=== PATIENT | female | born 1935 | race Caucasian/White ===

== ENCOUNTER 2022-04-07 12:16 | Outpatient (CLI) | payer MEDICARE, OTHER | END 2022-04-07 12:17 | disposition short-term general hospital (02) | LOC: EMS 12:16 | DX: S00.31XA Abrasion of nose, initial encounter (principal); R04.0 Epistaxis; W01.10XA Fall on same level from slipping, tripping and stumbling with subsequent striking against unspecified object, initial encounter; Y93.01 Activity, walking, marching and hiking; Y92.008 Other place in unspecified non-institutional (private) residence as the place of occurrence of the external cause | CPT/HCPCS: A0425; A0429; A0888 ==

== ENCOUNTER 2022-04-12 18:32 | Emergency (ER) | payer MEDICARE, OTHER ==
[2022-04-12] MEDS ORDERED: OXYMETAZOLINE HCL 100 SPRAYS BOTTLE NAS STA (18:40)
--- NOTE | 2022-04-12 18:40 | ED Physician Documentation ---
History of Present Illness - Stated complaint Stated Complaint: NOSE INJ - History obtained from History obtained from: Patient, Family - Additonal information Additional information: 86-year-old woman on Eliquis had a fall hitting her face on the ground 5 days ago. She was seen at [facility] and per the daughter had a velásquez scan that was negative except for a nasal fracture. Subsequently has followed up with Dr. Wetzel, ENT who recommended conservative care but she developed a nosebleed this evening. Review of Systems Constitutional: reports: Reviewed and negative Ears: reports: Reviewed and negative Cardiac: reports: Reviewed and negative PD PAST MEDICAL HISTORY - Present Medications Home Medications: Ambulatory Orders Medication Instructions Recorded Confirmed Amoxicillin 500 mg PO TID #20 cap 04/12/22 HYDROcod/ACETAM 5/325 [[place] 5/325] 1 - 2 tab PO Q6H PRN #15 tablet 04/12/22 - Allergies Allergies/Adverse Reactions: Allergies Allergy/AdvReac Type Severity Reaction Status Date / Time No Known Drug Allergies Allergy Verified 04/12/22 18:46 PD ED PE NORMAL - Vitals Vital signs reviewed: Yes - General General: Alert and oriented X 3, No acute distress - HEENT HEENT: PERRL, EOMI, Other (Bleeding from the left greater than right nares, I am unable to see the source of bleeding on initial exam due to clot.) - Neck Neck: Supple, no meningeal sign, No bony TTP - Neuro Neuro: Alert and oriented X 3, Normal speech Eye Opening: Spontaneous Motor: Obeys Commands Verbal: Oriented GCS Score: 15 Results - Vitals Vitals: Vital Signs - 24 hr 04/12/22 18:42 Temperature 37.7 C Heart Rate 70 Respiratory 18 Rate Blood Pressure 167/99 H O2 Saturation 99 Oxygen O2 Source Room air Procedures - Epistaxis Site: Left, Other (After initial evaluation some oxymetazoline spray was sprayed at both eyes and then a nasal camp was placed. Then using nasal suction I was able to clear clots and identified what was likely the site of recent epistaxis on the left) Treatment: Silver Nitrate, Anterior rhinorocket Other: Observed - no bleeding PD MEDICAL DECISION MAKING - ED course ED course: 86-year-old woman on a DOAC for A. fib presents with a left-sided nosebleed after breaking her nose. She is already followed up with ENT but the epistaxis started after that visit. Multiple trials at vasoconstriction, pressure and silver nitrate cautery were unsuccessful and ended up being packed with a Rhino Rocket with cessation of bleeding. Departure - Departure Disposition: 01 Home, Self Care Clinical Impression: Epistaxis Nasal fracture Qualifiers: Encounter type: initial encounter Fracture type: closed Qualified Code(s): S02.2XXA - Fracture of nasal bones, initial encounter for closed fracture Condition: Good Record reviewed to determine appropriate education?: Yes Instructions: ED Nasal Packing Anterior Removable Prescriptions: Amoxicillin 500 mg PO TID #20 cap HYDROcod/ACETAM 5/325 [[place] 5/325] 1 - 2 tab PO Q6H PRN #15 tablet PRN Reason: Pain Comments: You are seen tonight for left-sided nosebleed related to a known facial fracture. We were unable to stop the bleeding with cautery and vasoconstrictors and subsequently placed a Rhino Rocket. This needs to stay in for 3 to 5 days. Ideally you can call Dr. Wetzel's office tomorrow and make an appointment for early next week for removal, if that cannot be set up, return here Saturday for reevaluation and packing removal. I sent a prescription for antibiotics and painkillers to [facility] in [place]. I am prescribing a short course of narcotic pain medication for you. These are potentially dangerous and addictive medications that should be used carefully. These medications may constipate you. Take an [id number] stool softener (docusate) twice daily with plenty of water while taking these medications. If you go 24 hours without a bowel movement, take [id number] miralax, per package instructions. Do not drink or drive while taking these medications. If you received narcotic or sedating medications while in the emergency department, do not drive for 24 hours. Store this medication in a safe, secure place and out of reach of children. It is a violation of federal law to give or sell this medication to another person or to use in a manner other than prescribed. The ED will not refill narcotic prescriptions, including prescriptions lost or stolen. To dispose of unwanted medications: 1. [facility] [address] in [place] has a medication drop box. They accept prescription medications (in pill form) Saturday through Saturday 9:00 a.m. to 5:00 p.m. 2. [facility] [employer] accepts prescription medications (in pill form only) for disposal year round. Call for more information. 3. Contact the [facility] for the next [facility] sponsored prescription drug collection event. , [phone], or [phone]; Note that many narcotic pain relievers also contain Tylenol/acetaminophen. Please ensure that your total dose of acetaminophen from all sources does not exceed 3 g (3000 mg) per day.
--- OUTSIDE RECORDS SUMMARY | 2022-04-12 18:41 | EXTERNAL MEDICAL SUMMARY RPT | Continuity of Care Document ---
:1935 Author Organization [facility] Address [address] [place] [address] Phone Allergies and Intolerances date description facility type (no date) No Known Drug Allergies [facility] (unkn own) Encounters No information. Functional Status No information. Immunizations No information. Medications No information. Problems No information. Procedures date description facility +0000 Diagnosis [facility] +0000 Finding [facility] +0000 General Physician [facility] Results/Labs test date author facility value unit interpret ation Result panel 1 (unknown) (no (unknown) (unknown) (no value) (units (unk nown) date) unknown) (unknown) (no (unknown) (unknown) (no value) (units (unk nown) date) unknown) (unknown) (no (unknown) (unknown) [place], [place] (units ( unknown) date) [id number] unknown) (unknown) (no (unknown) (unknown) Draft (units (unkno wn) date) unknown) (unknown) (no (unknown) (unknown) Family Practice (units (unknown) date) Office Visit unknown) (unknown) (no (unknown) (unknown) [facility] (units ([facility] date[facility] unknown) (unknown) (no (unknown) (unknown) (no value) (units (unk nown) date) unknown) (unknown) (no (unknown) (unknown) 02/08/22 (units (unkno wn) date) unknown) (unknown) (no (unknown) (unknown) [id number] (units (unkno wn) date) unknown) (unknown) (no (unknown) (unknown) Accompanied by: (units (unknown) date) Self / Same As unknown) Patient (unknown) (no (unknown) (unknown) Age/Sex: 86 / F (units (unknown) date) Date of unknown) Service: (unknown) (no (unknown) (unknown) Allergies (units (unkn own) date) unknown) (unknown) (no (unknown) (unknown) Anemia (units (unkno wn) date) unknown) (unknown) (no (unknown) (unknown) Attending Dr: (units ( unknown) date) Natan Waldron unknown) D.O. (unknown) (no (unknown) (unknown) Brother Age: 85 (units (unknown) date) Heart disease unknown) (unknown) (no (unknown) (unknown) Cataracts, (units (unk nown) date) bilateral unknown) (Unknown) (unknown) (no (unknown) (unknown) : 1935 (units (unknown) date) Acct:[id number] unknown) (unknown) (no (unknown) (unknown) Dept at (units (unkno wn) date) . unknown) (unknown) (no (unknown) (unknown) Documented By: (units (unknown) date) Natan Waldron unknown) D.O. 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 (unknown) (no (unknown) (unknown) GERD (units (unkno wn) date) (gastroesophageal unknown) reflux disease) (Unknown) (unknown) (no (unknown) (unknown) Hx of cataract (units (unknown) date) surgery () unknown) (unknown) (no (unknown) (unknown) Hyperlipemia (units (u nknown) date) (Unknown) unknown) (unknown) (no (unknown) (unknown) Hypertension (units (u nknown) date) (Unknown) unknown) (unknown) (no (unknown) (unknown) Intake (units (unkno wn) date) unknown) (unknown) (no (unknown) (unknown) Intake Note: (units (u nknown) date) unknown) (unknown) (no (unknown) (unknown) Intake performed (units (unknown) date) by: unknown) Sol Morgan (unknown) (no (unknown) (unknown) Intake- Clincial (units (unknown) date) Staff unknown) (unknown) (no (unknown) (unknown) Knee pain (units (unkn own) date) unknown) (unknown) (no (unknown) (unknown) Last Menstural (units (unknown) date) Cycle + Details unknown) (unknown) (no (unknown) (unknown) Left knee pain (units (unknown) date) unknown) (unknown) (no (unknown) (unknown) Loc: [facility] (units (unkno wn) date) unknown) (unknown) (no (unknown) (unknown) Low back pain (units ( unknown) date) unknown) (unknown) (no (unknown) (unknown) Medical History (units (unknown) date) (Updated 11/30/21 unknown) @ 15:00 by Natan Waldron DO) (unknown) (no (unknown) (unknown) [facility] (units (unkno wn) date) regurgitation unknown) (Unknown) (unknown) (no (unknown) (unknown) Mother (units (unkno wn) date) No unknown) problems noted. (unknown) (no (unknown) (unknown) No Known Drug (units ( unknown) date) Allergies Allergy unknown) (Verified 11/30/21 11:14) (unknown) (no (unknown) (unknown) Osteoarthritis (units (unknown) date) of right knee unknown) (unknown) (no (unknown) (unknown) Other Menstrual (units (unknown) date) Period: unknown) Postmenopausal (unknown) (no (unknown) (unknown) PFSH (units (unkno wn) date) unknown) (unknown) (no (unknown) (unknown) Patient: (units (unkno wn) date) Dana Pillai M unknown) MR#: [id number] (unknown) (no (unknown) (unknown) Pt here today (units ( unknown) date) for Knee unknown) injection for pain (unknown) (no (unknown) (unknown) Reason For Visit (units (unknown) date) unknown) (unknown) (no (unknown) (unknown) Signed By: (units (unk nown) date) unknown) (unknown) (no (unknown) (unknown) Smoking Status: (units (unknown) date) Never smoker unknown) (unknown) (no (unknown) (unknown) Status post (units (un known) date) right breast unknown) lumpectomy (-1966) (unknown) (no (unknown) (unknown) Superficial (units (un known) date) laceration unknown) (unknown) (no (unknown) (unknown) Surgical History (units (unknown) date) (Reviewed unknown) 11/30/21 @ 14:57 by Natan Waldron DO) (unknown) (no (unknown) (unknown) This note may (units ( unknown) date) have been all or unknown) partially generated using voice recognition (unknown) (no (unknown) (unknown) Tobacco + (units (unkn own) date) Substance Use unknown) (unknown) (no (unknown) (unknown) Tobacco Status (units (unknown) date) unknown) (unknown) (no (unknown) (unknown) Urinary (units (unkno wn) date) incontinence unknown) (Unknown) (unknown) (no (unknown) (unknown) Visit Reasons: (units (unknown) date) wants injection unknown) for knee pain (unknown) (no (unknown) (unknown) Well adult exam (units (unknown) date) unknown) (unknown) (no (unknown) (unknown) alcohol intake: (units (unknown) date) current unknown) (unknown) (no (unknown) (unknown) have occurred. (units (unknown) date) If there are any unknown) questions, please contact the Medical Records (unknown) (no (unknown) (unknown) may occur. (units (unk nown) date) Occasional unknown) wrong-word or 'sound-alike' substitutions may have (unknown) (no (unknown) (unknown) occurred due to (units (unknown) date) the inherent unknown) limitations of voice recognition software. Please (unknown) (no (unknown) (unknown) read the note (units ( unknown) date) carefully and unknown) recognize, using context, where these substitutions (unknown) (no (unknown) (unknown) software. (units (unkn own) date) Although every unknown) effort is made to edit content, solar engineer errors (unknown) (no (unknown) (unknown) substance use (units ( unknown) date) type: does not unknown) use Result panel 2 (unknown) (no (unknown) (unknown) (no value) (units (unk nown) date) unknown) (unknown) (no (unknown) (unknown) (no value) (units (unk nown) date) unknown) (unknown) (no (unknown) (unknown) (no value) (units (unk nown) date) unknown) (unknown) (no (unknown) (unknown) 02/08/22 (units (unkno wn) date) unknown) (unknown) (no (unknown) (unknown) 11:34 (units (unkno wn) date) unknown) (unknown) (no (unknown) (unknown) [place], [place] (units ( unknown) date) [id number] unknown) (unknown) (no (unknown) (unknown) Draft (units (unkno wn) date) unknown) (unknown) (no (unknown) (unknown) Family Practice (units (unknown) date) Office Visit unknown) (unknown) (no (unknown) (unknown) [facility] ([facility] date[facility]) (unknown) (no (unknown) (unknown) (no value) (units (unk nown) date) unknown) (unknown) (no (unknown) (unknown) 02/08/22 (units (unkno wn) date) unknown) (unknown) (no (unknown) (unknown) [id number] (units (unkno wn) date) unknown) (unknown) (no (unknown) (unknown) Accompanied by: (units (unknown) date) Self / Same As unknown) Patient (unknown) (no (unknown) (unknown) Age/Sex: 86 / F (units (unknown) date) Date of unknown) Service: (unknown) (no (unknown) (unknown) Allergies (units (unkn own) date) unknown) (unknown) (no (unknown) (unknown) Anemia (units (unkno wn) date) unknown) (unknown) (no (unknown) (unknown) Attending Dr: (units ( unknown) date) Natan Waldron unknown) D.O. (unknown) (no (unknown) (unknown) BMI 25.7 (units (un known) date) unknown) (unknown) (no (unknown) (unknown) BP 160/88 H (units (unknown) date) unknown) (unknown) (no (unknown) (unknown) Blood Pressure (units (unknown) date) Location Lt unknown) brachial (unknown) (no (unknown) (unknown) Brother Age: 85 (units (unknown) date) Heart disease unknown) (unknown) (no (unknown) (unknown) Cataracts, (units (unk nown) date) bilateral unknown) (Unknown) (unknown) (no (unknown) (unknown) : 1935 (units (unknown) date) Acct:[id number] unknown) (unknown) (no (unknown) (unknown) Dept at (units (unkno wn) date) . unknown) (unknown) (no (unknown) (unknown) Documented By: (units (unknown) date) Natan Waldron unknown) D.O. 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 (unknown) (no (unknown) (unknown) GERD (units (unkno wn) date) (gastroesophageal unknown) reflux disease) (Unknown) (unknown) (no (unknown) (unknown) Height 5 ft (units (unknown) date) 1.5 in unknown) (unknown) (no (unknown) (unknown) Hx of cataract (units (unknown) date) surgery (-2014) unknown) (unknown) (no (unknown) (unknown) Hyperlipemia (units (u nknown) date) (Unknown) unknown) (unknown) (no (unknown) (unknown) Hypertension (units (u nknown) date) (Unknown) unknown) (unknown) (no (unknown) (unknown) Intake (units (unkno wn) date) unknown) (unknown) (no (unknown) (unknown) Intake Note: (units (u nknown) date) unknown) (unknown) (no (unknown) (unknown) Intake performed (units (unknown) date) by: unknown) Sol Morgan (unknown) (no (unknown) (unknown) Intake- Clincial (units (unknown) date) Staff unknown) (unknown) (no (unknown) (unknown) Knee pain (units (unkn own) date) unknown) (unknown) (no (unknown) (unknown) Last Menstural (units (unknown) date) Cycle + Details unknown) (unknown) (no (unknown) (unknown) Left knee pain (units (unknown) date) unknown) (unknown) (no (unknown) (unknown) Loc: [facility] (units (unkno wn) date) unknown) (unknown) (no (unknown) (unknown) Low back pain (units ( unknown) date) unknown) (unknown) (no (unknown) (unknown) Medical History (units (unknown) date) (Updated 11/30/21 unknown) @ 15:00 by Natan Waldron DO) (unknown) (no (unknown) (unknown) [facility] (units (unkno wn) date) regurgitation unknown) (Unknown) (unknown) (no (unknown) (unknown) Mother (units (unkno wn) date) No unknown) problems noted. (unknown) (no (unknown) (unknown) No Known Drug (units ( unknown) date) Allergies Allergy unknown) (Verified 11/30/21 11:14) (unknown) (no (unknown) (unknown) Osteoarthritis (units (unknown) date) of right knee unknown) (unknown) (no (unknown) (unknown) Other Menstrual (units (unknown) date) Period: unknown) Postmenopausal (unknown) (no (unknown) (unknown) Oxygen Delivery (units (unknown) date) Method room unknown) air (unknown) (no (unknown) (unknown) PFSH (units (unkno wn) date) unknown) (unknown) (no (unknown) (unknown) Patient: (units (unkno wn) date) Dana Pillai M unknown) MR#: [id number] (unknown) (no (unknown) (unknown) Position (units (unkno wn) date) Sitting unknown) (unknown) (no (unknown) (unknown) Pt here today (units ( unknown) date) for Left Knee unknown) injection for pain. (unknown) (no (unknown) (unknown) Pt states the (units ( unknown) date) last injection unknown) gave improvement for about 2 weeks. (unknown) (no (unknown) (unknown) Pulse 61 (units (un known) date) unknown) (unknown) (no (unknown) (unknown) Pulse Oximetry (units (unknown) date) (%) 94 unknown) (unknown) (no (unknown) (unknown) Pulse Source (units (u nknown) date) Monitor unknown) (unknown) (no (unknown) (unknown) Reason For Visit (units (unknown) date) unknown) (unknown) (no (unknown) (unknown) Signed By: (units (unk nown) date) unknown) (unknown) (no (unknown) (unknown) Smoking Status: (units (unknown) date) Never smoker unknown) (unknown) (no (unknown) (unknown) Status post (units (un known) date) right breast unknown) lumpectomy () (unknown) (no (unknown) (unknown) Superficial (units (un known) date) laceration unknown) (unknown) (no (unknown) (unknown) Surgical History (units (unknown) date) (Reviewed unknown) 11/30/21 @ 14:57 by Natan Waldron DO) (unknown) (no (unknown) (unknown) This note may (units ( unknown) date) have been all or unknown) partially generated using voice recognition (unknown) (no (unknown) (unknown) Tobacco + (units (unkn own) date) Substance Use unknown) (unknown) (no (unknown) (unknown) Tobacco Status (units (unknown) date) unknown) (unknown) (no (unknown) (unknown) Urinary (units (unkno wn) date) incontinence unknown) (Unknown) (unknown) (no (unknown) (unknown) Visit Reasons: (units (unknown) date) wants injection unknown) for knee pain (unknown) (no (unknown) (unknown) Vitals (units (unkno wn) date) unknown) (unknown) (no (unknown) (unknown) Weight 138 lb (units (unknown) date) 2 oz unknown) (unknown) (no (unknown) (unknown) Well adult exam (units (unknown) date) unknown) (unknown) (no (unknown) (unknown) alcohol intake: (units (unknown) date) current unknown) (unknown) (no (unknown) (unknown) have occurred. (units (unknown) date) If there are any unknown) questions, please contact the Medical Records (unknown) (no (unknown) (unknown) may occur. (units (unk nown) date) Occasional unknown) wrong-word or 'sound-alike' substitutions may have (unknown) (no (unknown) (unknown) occurred due to (units (unknown) date) the inherent unknown) limitations of voice recognition software. Please (unknown) (no (unknown) (unknown) read the note (units ( unknown) date) carefully and unknown) recognize, using context, where these substitutions (unknown) (no (unknown) (unknown) software. (units (unkn own) date) Although every unknown) effort is made to edit content, solar engineer errors (unknown) (no (unknown) (unknown) substance use (units ( unknown) date) type: does not unknown) use Result panel 3 (unknown) (no (unknown) (unknown) (no value) (units (unk nown) date) unknown) (unknown) (no (unknown) (unknown) (no value) (units (unk nown) date) unknown) (unknown) (no (unknown) (unknown) (no value) (units (unk nown) date) unknown) (unknown) (no (unknown) (unknown) 02/08/22 (units (unkno wn) date) unknown) (unknown) (no (unknown) (unknown) 11:34 (units (unkno wn) date) unknown) (unknown) (no (unknown) (unknown) [place] (units ( unknown) date) [id number] unknown) (unknown) (no (unknown) (unknown) Draft (units (unkno wn) date) unknown) (unknown) (no (unknown) (unknown) Family Practice (units (unknown) date) Office Visit unknown) (unknown) (no (unknown) (unknown) [facility]units (unknown[facility] date[facility] unknown) (unknown) (no (unknown) (unknown) (no value) (units (unk nown) date) unknown) (unknown) (no (unknown) (unknown) 02/08/22 (units (unkno wn) date) unknown) (unknown) (no (unknown) (unknown) [id number] (units (unkno wn) date) unknown) (unknown) (no (unknown) (unknown) Accompanied by: (units (unknown) date) Self / Same As unknown) Patient (unknown) (no (unknown) (unknown) Age/Sex: 86 / F (units (unknown) date) Date of unknown) Service: (unknown) (no (unknown) (unknown) Allergies (units (unkn own) date) unknown) (unknown) (no (unknown) (unknown) Anemia (units (unkno wn) date) unknown) (unknown) (no (unknown) (unknown) Attending Dr: (units ( unknown) date) Natan Waldron unknown) D.O. (unknown) (no (unknown) (unknown) BMI 25.7 (units (un known) date) unknown) (unknown) (no (unknown) (unknown) BP 160/88 H (units (unknown) date) unknown) (unknown) (no (unknown) (unknown) Blood Pressure (units (unknown) date) Location Lt unknown) brachial (unknown) (no (unknown) (unknown) Brother Age: 85 (units (unknown) date) Heart disease unknown) (unknown) (no (unknown) (unknown) Cataracts, (units (unk nown) date) bilateral unknown) (Unknown) (unknown) (no (unknown) (unknown) : 1935 (units (unknown) date) Acct:[id number] unknown) (unknown) (no (unknown) (unknown) Dept at (units (unkno wn) date) . unknown) (unknown) (no (unknown) (unknown) Documented By: (units (unknown) date) Natan Waldron unknown) D.O. 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 (unknown) (no (unknown) (unknown) GERD (units (unkno wn) date) (gastroesophageal unknown) reflux disease) (Unknown) (unknown) (no (unknown) (unknown) Height 5 ft (units (unknown) date) 1.5 in unknown) (unknown) (no (unknown) (unknown) Hx of cataract (units (unknown) date) surgery (-2015) unknown) (unknown) (no (unknown) (unknown) Hyperlipemia (units (u nknown) date) (Unknown) unknown) (unknown) (no (unknown) (unknown) Hypertension (units (u nknown) date) (Unknown) unknown) (unknown) (no (unknown) (unknown) Intake (units (unkno wn) date) unknown) (unknown) (no (unknown) (unknown) Intake Note: (units (u nknown) date) unknown) (unknown) (no (unknown) (unknown) Intake performed (units (unknown) date) by: unknown) Sol Morgan (unknown) (no (unknown) (unknown) Intake- Clincial (units (unknown) date) Staff unknown) (unknown) (no (unknown) (unknown) Knee pain (units (unkn own) date) unknown) (unknown) (no (unknown) (unknown) Last Menstural (units (unknown) date) Cycle + Details unknown) (unknown) (no (unknown) (unknown) Left knee pain (units (unknown) date) unknown) (unknown) (no (unknown) (unknown) Loc: [facility] (units (unkno wn) date) unknown) (unknown) (no (unknown) (unknown) Low back pain (units ( unknown) date) unknown) (unknown) (no (unknown) (unknown) Medical History (units (unknown) date) (Updated 11/30/21 unknown) @ 15:00 by Natan Waldron DO) (unknown) (no (unknown) (unknown) [facility] (units (unkno wn) date) regurgitation unknown) (Unknown) (unknown) (no (unknown) (unknown) Mother (units (unkno wn) date) No unknown) problems noted. (unknown) (no (unknown) (unknown) No Known Drug (units ( unknown) date) Allergies Allergy unknown) (Verified 11/30/21 11:14) (unknown) (no (unknown) (unknown) Osteoarthritis (units (unknown) date) of right knee unknown) (unknown) (no (unknown) (unknown) Other Menstrual (units (unknown) date) Period: unknown) Postmenopausal (unknown) (no (unknown) (unknown) Oxygen Delivery (units (unknown) date) Method room unknown) air (unknown) (no (unknown) (unknown) PFSH (units (unkno wn) date) unknown) (unknown) (no (unknown) (unknown) Patient: (units (unkno wn) date) Dana Pillai unknown) MR#: [id number] (unknown) (no (unknown) (unknown) Position (units (unkno wn) date) Sitting unknown) (unknown) (no (unknown) (unknown) Pt here today (units ( unknown) date) for Left Knee unknown) injection for pain. (unknown) (no (unknown) (unknown) Pt states she (units ( unknown) date) has constant unknown) pain, severity of pain depends on what she is doing. (unknown) (no (unknown) (unknown) Pt states the (units ( unknown) date) last injection unknown) gave improvement for about 2 weeks. (unknown) (no (unknown) (unknown) Pulse 61 (units (un known) date) unknown) (unknown) (no (unknown) (unknown) Pulse Oximetry (units (unknown) date) (%) 94 unknown) (unknown) (no (unknown) (unknown) Pulse Source (units (u nknown) date) Monitor unknown) (unknown) (no (unknown) (unknown) Reason For Visit (units (unknown) date) unknown) (unknown) (no (unknown) (unknown) Signed By: (units (unk nown) date) unknown) (unknown) (no (unknown) (unknown) Smoking Status: (units (unknown) date) Never smoker unknown) (unknown) (no (unknown) (unknown) Status post (units (un known) date) right breast unknown) lumpectomy (-1966) (unknown) (no (unknown) (unknown) Superficial (units (un known) date) laceration unknown) (unknown) (no (unknown) (unknown) Surgical History (units (unknown) date) (Reviewed unknown) 11/30/21 @ 14:57 by Natan Waldron DO) (unknown) (no (unknown) (unknown) This note may (units ( unknown) date) have been all or unknown) partially generated using voice recognition (unknown) (no (unknown) (unknown) Tobacco + (units (unkn own) date) Substance Use unknown) (unknown) (no (unknown) (unknown) Tobacco Status (units (unknown) date) unknown) (unknown) (no (unknown) (unknown) Urinary (units (unkno wn) date) incontinence unknown) (Unknown) (unknown) (no (unknown) (unknown) Visit Reasons: (units (unknown) date) wants injection unknown) for knee pain (unknown) (no (unknown) (unknown) Vitals (units (unkno wn) date) unknown) (unknown) (no (unknown) (unknown) Weight 138 lb (units (unknown) date) 2 oz unknown) (unknown) (no (unknown) (unknown) Well adult exam (units (unknown) date) unknown) (unknown) (no (unknown) (unknown) alcohol intake: (units (unknown) date) current unknown) (unknown) (no (unknown) (unknown) have occurred. (units (unknown) date) If there are any unknown) questions, please contact the Medical Records (unknown) (no (unknown) (unknown) may occur. (units (unk nown) date) Occasional unknown) wrong-word or 'sound-alike' substitutions may have (unknown) (no (unknown) (unknown) occurred due to (units (unknown) date) the inherent unknown) limitations of voice recognition software. Please (unknown) (no (unknown) (unknown) read the note (units ( unknown) date) carefully and unknown) recognize, using context, where these substitutions (unknown) (no (unknown) (unknown) software. (units (unkn own) date) Although every unknown) effort is made to edit content, solar engineer errors (unknown) (no (unknown) (unknown) substance use (units ( unknown) date) type: does not unknown) use Result panel 4 (unknown) (no (unknown) (unknown) (no value) (units (unk nown) date) unknown) (unknown) (no (unknown) (unknown) Assessment and (units (unknown) date) Plan: unknown) (unknown) (no (unknown) (unknown) Qualifiers: (units (un known) date) unknown) (unknown) (no (unknown) (unknown) Status: Acute (units ( unknown) date) unknown) (unknown) (no (unknown) (unknown) (no value) (units (unk nown) date) unknown) (unknown) (no (unknown) (unknown) (no value) (units (unk nown) date) unknown) (unknown) (no (unknown) (unknown) 02/08/22 (units (unkno wn) date) unknown) (unknown) (no (unknown) (unknown) 02/08/22 1214 (units ( unknown) date) unknown) (unknown) (no (unknown) (unknown) 11:34 (units (unkno wn) date) unknown) (unknown) (no (unknown) (unknown) [place] (units ( unknown) date) [id number] unknown) (unknown) (no (unknown) (unknown) Chronicity: (units (un known) date) chronic unknown) Qualified Code(s): M25.562 - Pain in left knee; (unknown) (no (unknown) (unknown) Family Practice (units (unknown) date) Office Visit unknown) (unknown) (no (unknown) (unknown) [facility]units ([facility] date[facility] unknown) (unknown) (no (unknown) (unknown) Signed (units (unkno wn) date) unknown) (unknown) (no (unknown) (unknown) (no value) (units (unk nown) date) unknown) (unknown) (no (unknown) (unknown) (1) Left knee (units ( unknown) date) pain: unknown) (unknown) (no (unknown) (unknown) 02/08/22 (units (unkno wn) date) unknown) (unknown) (no (unknown) (unknown) [id number] (units (unkno wn) date) unknown) (unknown) (no (unknown) (unknown) 86-year-old (units (un known) date) female with unknown) longstanding history of advanced osteoarthrosis left (unknown) (no (unknown) (unknown) Accompanied by: (units (unknown) date) Self / Same As unknown) Patient (unknown) (no (unknown) (unknown) Age/Sex: 86 / F (units (unknown) date) Date of unknown) Service: (unknown) (no (unknown) (unknown) Allergies (units (unkn own) date) unknown) (unknown) (no (unknown) (unknown) Anemia (units (unkno wn) date) unknown) (unknown) (no (unknown) (unknown) Assessment + (units (u nknown) date) Plan unknown) (unknown) (no (unknown) (unknown) Attending Dr: (units ( unknown) date) Natan Waldron unknown) D.O. (unknown) (no (unknown) (unknown) BMI 25.7 (units (un known) date) unknown) (unknown) (no (unknown) (unknown) BP 160/88 H (units (unknown) date) unknown) (unknown) (no (unknown) (unknown) Billing- Joint (units (unknown) date) Inj/Aspir/Arthroc unknown) : - Major joint/bursa w/out US (unknown) (no (unknown) (unknown) Blood Pressure (units (unknown) date) Location Lt unknown) brachial (unknown) (no (unknown) (unknown) Brother Age: 86 (units (unknown) date) Heart disease unknown) (unknown) (no (unknown) (unknown) Cataracts, (units (unk nown) date) bilateral unknown) (Unknown) (unknown) (no (unknown) (unknown) Chief Complaint (units (unknown) date) unknown) (unknown) (no (unknown) (unknown) Chief Complaint: (units (unknown) date) Left knee pain unknown) (unknown) (no (unknown) (unknown) : 1935 (units (unknown) date) Acct:[id number] unknown) (unknown) (no (unknown) (unknown) Dept at (units (unkno wn) date) . unknown) (unknown) (no (unknown) (unknown) Details: (units (unkno wn) date) unknown) (unknown) (no (unknown) (unknown) Documented By: (units (unknown) date) Natan Waldron unknown) D.O. 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 unknown) (Unknown) (unknown) (no (unknown) (unknown) Exam (units (unkno wn) date) unknown) (unknown) (no (unknown) (unknown) Exam Narrative (units (unknown) date) unknown) (unknown) (no (unknown) (unknown) Exam Narrative: (units (unknown) date) unknown) (unknown) (no (unknown) (unknown) Examination left (units (unknown) date) knee reveals a unknown) moderate effusion noted on palpation she has (unknown) (no (unknown) (unknown) Family History (units (unknown) date) (Reviewed unknown) 02/08/22 @ 12:10 by Natan Waldron DO) (unknown) (no (unknown) (unknown) Father (units (unkno wn) date) No unknown) problems noted. (unknown) (no (unknown) (unknown) G89.29 - Other (units (unknown) date) chronic pain unknown) (unknown) (no (unknown) (unknown) GERD (units (unkno wn) date) (gastroesophageal unknown) reflux disease) (Unknown) (unknown) (no (unknown) (unknown) HPI (units (unkno wn) date) unknown) (unknown) (no (unknown) (unknown) Height 5 ft (units (unknown) date) 1.5 in unknown) (unknown) (no (unknown) (unknown) Hx of cataract (units (unknown) date) surgery (-2014) unknown) (unknown) (no (unknown) (unknown) Hyperlipemia (units (u nknown) date) (Unknown) unknown) (unknown) (no (unknown) (unknown) Hypertension (units (u nknown) date) (Unknown) unknown) (unknown) (no (unknown) (unknown) In general is a (units (unknown) date) pleasant elderly unknown) female in no acute distress contributes to (unknown) (no (unknown) (unknown) Intake (units (unkno wn) date) unknown) (unknown) (no (unknown) (unknown) Intake Note: (units (u nknown) date) unknown) (unknown) (no (unknown) (unknown) Intake performed (units (unknown) date) by: unknown) Sol Morgan (unknown) (no (unknown) (unknown) Intake- Clincial (units (unknown) date) Staff unknown) (unknown) (no (unknown) (unknown) Joint (units (unkno wn) date) Inj/Aspiration/Ar unknown) throcentesis Notes: (unknown) (no (unknown) (unknown) Knee pain (units (unkn own) date) unknown) (unknown) (no (unknown) (unknown) Last Menstural (units (unknown) date) Cycle + Details unknown) (unknown) (no (unknown) (unknown) Left knee pain (units (unknown) date) unknown) (unknown) (no (unknown) (unknown) Left knee pain (units (unknown) date) due to advanced unknown) osteoarthrosis. The patient will modify her (unknown) (no (unknown) (unknown) Loc: [facility] (units (unkno wn) date) unknown) (unknown) (no (unknown) (unknown) Location: Left (units (unknown) date) knee unknown) (unknown) (no (unknown) (unknown) Low back pain (units ( unknown) date) unknown) (unknown) (no (unknown) (unknown) Medical History (units (unknown) date) (Reviewed unknown) 02/08/22 @ 12:10 by Natan Waldron DO) (unknown) (no (unknown) (unknown) Medication (units (unk nown) date) Administered/Dosa unknown) ge: Other (Triamcinolone 40 mg) (unknown) (no (unknown) (unknown) Mitral (units (unkno wn) date) regurgitation unknown) (Unknown) (unknown) (no (unknown) (unknown) Mother (units (unkno wn) date) No unknown) problems noted. (unknown) (no (unknown) (unknown) No Known Drug (units ( unknown) date) Allergies Allergy unknown) (Verified 11/30/21 11:14) (unknown) (no (unknown) (unknown) Office Procedure (units (unknown) date) unknown) (unknown) (no (unknown) (unknown) Office (units (unkno wn) date) Procedures unknown) (unknown) (no (unknown) (unknown) Osteoarthritis (units (unknown) date) of right knee unknown) (unknown) (no (unknown) (unknown) Other Menstrual (units (unknown) date) Period: unknown) Postmenopausal (unknown) (no (unknown) (unknown) Oxygen Delivery (units (unknown) date) Method room unknown) air (unknown) (no (unknown) (unknown) PFSH (units (unkno wn) date) unknown) (unknown) (no (unknown) (unknown) Patient (units (unkno wn) date) Tolerated unknown) Procedure: Well (unknown) (no (unknown) (unknown) Patient: (units (unkno wn) date) Dana Pillai M unknown) MR#: [id number] (unknown) (no (unknown) (unknown) Position (units (unkno wn) date) Sitting unknown) (unknown) (no (unknown) (unknown) Post Treatment (units (unknown) date) Care: Put ice or unknown) a cold pack on the area and Avoid strenuous (unknown) (no (unknown) (unknown) Pt here today (units ( unknown) date) for Left Knee unknown) injection for pain. (unknown) (no (unknown) (unknown) Pt states she (units ( unknown) date) has constant unknown) pain, severity of pain depends on what she is doing. (unknown) (no (unknown) (unknown) Pt states the (units ( unknown) date) last injection unknown) gave improvement for about 2 weeks. (unknown) (no (unknown) (unknown) Pulse 61 (units (un known) date) unknown) (unknown) (no (unknown) (unknown) Pulse Oximetry (units (unknown) date) (%) 94 unknown) (unknown) (no (unknown) (unknown) Pulse Source (units (u nknown) date) Monitor unknown) (unknown) (no (unknown) (unknown) ROS (units (unkno wn) date) unknown) (unknown) (no (unknown) (unknown) ROS Narrative (units ( unknown) date) unknown) (unknown) (no (unknown) (unknown) ROS Narrative: (units (unknown) date) unknown) (unknown) (no (unknown) (unknown) ROS per HPI (units (un known) date) unknown) (unknown) (no (unknown) (unknown) Reason For Visit (units (unknown) date) unknown) (unknown) (no (unknown) (unknown) Signed By: (units (unk nown) date) <Electronically unknown) signed by Natan Waldron D.O.> (unknown) (no (unknown) (unknown) Smoking Status: (units (unknown) date) Never smoker unknown) (unknown) (no (unknown) (unknown) Status post (units (un known) date) right breast unknown) lumpectomy (-1966) (unknown) (no (unknown) (unknown) Superficial (units (un known) date) laceration unknown) (unknown) (no (unknown) (unknown) Surgical History (units (unknown) date) (Reviewed unknown) 02/08/22 @ 12:10 by Natan Waldron DO) (unknown) (no (unknown) (unknown) This note may (units ( unknown) date) have been all or unknown) partially generated using voice recognition (unknown) (no (unknown) (unknown) Tobacco + (units (unkn own) date) Substance Use unknown) (unknown) (no (unknown) (unknown) Tobacco Status (units (unknown) date) unknown) (unknown) (no (unknown) (unknown) Treatment (units (unkn own) date) Method: Injection unknown) (unknown) (no (unknown) (unknown) Under sterile (units ( unknown) date) precautions after unknown) Betadine prep risks and benefits explained 4 cc (unknown) (no (unknown) (unknown) Urinary (units (unkno wn) date) incontinence unknown) (Unknown) (unknown) (no (unknown) (unknown) Visit Reasons: (units (unknown) date) wants injection unknown) for knee pain (unknown) (no (unknown) (unknown) Vital signs are (units (unknown) date) stable charted unknown) insure the patient (unknown) (no (unknown) (unknown) Vitals (units (unkno wn) date) unknown) (unknown) (no (unknown) (unknown) Weight 138 lb (units (unknown) date) 2 oz unknown) (unknown) (no (unknown) (unknown) Well adult exam (units (unknown) date) unknown) (unknown) (no (unknown) (unknown) activities for (units (unknown) date) several days unknown) (unknown) (no (unknown) (unknown) alcohol intake: (units (unknown) date) current unknown) (unknown) (no (unknown) (unknown) as well as (units (unk nown) date) discomfort after unknown) in for longstanding. No locking catching or giving (unknown) (no (unknown) (unknown) discomfort with (units (unknown) date) flexion and unknown) extension negative anterior drawer sign (unknown) (no (unknown) (unknown) evaluation per (units (unknown) date) patient's wishes unknown) if her symptoms return other considerations (unknown) (no (unknown) (unknown) exacerbating (units (u nknown) date) activities. unknown) Follow-up as needed will consider orthopedic (unknown) (no (unknown) (unknown) few weeks and (units (u nknown) date) presents today unknown) with increasing post weight-bearing activity fusion (unknown) (no (unknown) (unknown) have occurred. (units (unknown) date) If there are any unknown) questions, please contact the Medical Records (unknown) (no (unknown) (unknown) history as well (units (unknown) date) as repeat her unknown) arthrocentesis to the involved left knee. She (unknown) (no (unknown) (unknown) history walks (units ( unknown) date) with an antalgic unknown) gait (unknown) (no (unknown) (unknown) instructions (units (u nknown) date) were given she unknown) will follow-up as needed (unknown) (no (unknown) (unknown) knee presents (units ( unknown) date) the clinic to unknown) follow-up in regards to her underlying health (unknown) (no (unknown) (unknown) may occur. (units (unk nown) date) Occasional unknown) wrong-word or 'sound-alike' substitutions may have (unknown) (no (unknown) (unknown) occurred due to (units (unknown) date) the inherent unknown) limitations of voice recognition software. Please (unknown) (no (unknown) (unknown) of 1% lidocaine (units (unknown) date) without unknown) epinephrine and 40 mg of triamcinolone were injected in (unknown) (no (unknown) (unknown) read the note (units ( unknown) date) carefully and unknown) recognize, using context, where these substitutions (unknown) (no (unknown) (unknown) regarding (units (unkn own) date) chronic knee pain unknown) will be considered at that time (unknown) (no (unknown) (unknown) software. (units (unkn own) date) Although every unknown) effort is made to edit content, solar engineer errors (unknown) (no (unknown) (unknown) stated that she (units (unknown) date) received unknown) efficacious results on her last injection for only a (unknown) (no (unknown) (unknown) substance use (units ( unknown) date) type: does not unknown) use (unknown) (no (unknown) (unknown) the medial (units (unkn own) date) anterior approach unknown) patient tolerated the procedure well postprocedural (unknown) (no (unknown) (unknown) way the patient (units (unknown) date) denies any pain unknown) that awakens her at night (unknown) (no (unknown) (unknown) weight-bearing (units (unknown) date) activity over the unknown) next few days and continue to avoid Result panel 5 (unknown) (no (unknown) (unknown) (no value) (units (unk nown) date) unknown) (unknown) (no (unknown) (unknown) [address] [place] [address] (units (unknown) date) unknown) (unknown) (no (unknown) (unknown) [place], [place] (units ( unknown) date) [id number] unknown) (unknown) (no (unknown) (unknown) [facility] (units (unknown) date) unknown) (unknown) (no (unknown) (unknown) Mammography (units (un known) date) Report unknown) (unknown) (no (unknown) (unknown) Signed (units (unkno wn) date) unknown) (unknown) (no (unknown) (unknown) (no value) (units (unk nown) date) unknown) (unknown) (no (unknown) (unknown) % and her 10 year (units (unknown) date) risk is %. unknown) According to the ACR, ACS, and NCCN guidelines, an (unknown) (no (unknown) (unknown) 02/17/22 (units (unkno wn) date) unknown) (unknown) (no (unknown) (unknown) 15% of breast (units ( unknown) date) malignancies will unknown) not be visualized mammographically. In the (unknown) (no (unknown) (unknown) ACR BI-RADS (units (un known) date) Category 2: Benign unknown) Finding(s) [id number] (unknown) (no (unknown) (unknown) Based on the (units (u nknown) date) [place] model unknown) (a risk assessment model) the patient's (unknown) (no (unknown) (unknown) CLINICAL: Routine (units (unknown) date) screening. unknown) (unknown) (no (unknown) (unknown) Comparison is (units ( unknown) date) made to exams unknown) dated: 02/02/2021 mammogram, 04/04/2020 mammogram, (unknown) (no (unknown) (unknown) Current study was (units (unknown) date) also evaluated unknown) with a Computer Aided Detection (CAD) system. (unknown) (no (unknown) (unknown) Electronically (units (unknown) date) Signed By: Tyler unknown) Leann Oconnor M.D. (unknown) (no (unknown) (unknown) IMPRESSION: (units (un known) date) BENIGN unknown) (unknown) (no (unknown) (unknown) NOTE: For (units (unkn own) date) mammograms, a unknown) report in lay terms will be sent to the patient. (unknown) (no (unknown) (unknown) No significant (units (unknown) date) masses, unknown) calcifications, or other findings are seen in either (unknown) (no (unknown) (unknown) There are benign (units (unknown) date) calcifications in unknown) both breasts. There also are benign (unknown) (no (unknown) (unknown) There has been no (units (unknown) date) significant unknown) interval change. (unknown) (no (unknown) (unknown) There is no (units (un known) date) mammographic unknown) evidence of malignancy. A 1 year screening mammogram (unknown) (no (unknown) (unknown) This exam was (units ( unknown) date) interpreted at unknown) Station ID: [id number]. (unknown) (no (unknown) (unknown) a palpable breast (units (unknown) date) mass, a negative unknown) mammogram must not discourage biopsy of a (unknown) (no (unknown) (unknown) breast MRI exam (units (unknown) date) along with unknown) mammogram is recommended if the patient's lifetime (unknown) (no (unknown) (unknown) calcifications in (units (unknown) date) both breasts. unknown) (unknown) (no (unknown) (unknown) heterogeneously (units (unknown) date) dense. This may unknown) lower the sensitivity of mammography. (unknown) (no (unknown) (unknown) letter sent: (units (u nknown) date) Normal Exam unknown) (unknown) (no (unknown) (unknown) mammogram, and (units (unknown) date) 03/10/2018 mammogram unknown) - [facility]. The tissue of both breasts (unknown) (no (unknown) (unknown) or greater. (units (un known) date) unknown) (unknown) (no (unknown) (unknown) recommended. (units (u nknown) date) unknown) (unknown) (no (unknown) (unknown) slc/penrad: (units (unknown) date) 022 09:25:05 unknown) (unknown) (no (unknown) (unknown) suspicious (units (unk nown) date) lesion. unknown) (unknown) (no (unknown) (unknown) [id number] (units (unkno wn) date) unknown) (unknown) (no (unknown) (unknown) 04/01/2019 (units (unkn own) date) unknown) (unknown) (no (unknown) (unknown) Accession Number: (units (unknown) date) [id number] unknown) (unknown) (no (unknown) (unknown) Age/Sex: 86 / F (units (unknown) date) Date of Service: unknown) (unknown) (no (unknown) (unknown) Approximately (units ( unknown) date) unknown) (unknown) (no (unknown) (unknown) BILATERAL DIGITAL (units (unknown) date) SCREENING unknown) MAMMOGRAM 3D/2D WITH CAD: 02/17/2022 (unknown) (no (unknown) (unknown) : 1935 (units (unknown) date) Acct:[id number] unknown) (unknown) (no (unknown) (unknown) Loc: M[facility]MO (units (unk nown) date) unknown) (unknown) (no (unknown) (unknown) Ordering (units (unkno wn) date) Provider: unknown) Natan Waldron D.O. (unknown) (no (unknown) (unknown) Patient: (units (unkno wn) date) JonatanDana M unknown) MR#: [id number] (unknown) (no (unknown) (unknown) Procedure: MM (units ( unknown) date) screening mammo BI unknown) (unknown) (no (unknown) (unknown) annual (units (unkno wn) date) unknown) (unknown) (no (unknown) (unknown) breast. (units (unkno wn) date) unknown) (unknown) (no (unknown) (unknown) clinically (units (unk nown) date) unknown) (unknown) (no (unknown) (unknown) is (units (unkno wn) date) unknown) (unknown) (no (unknown) (unknown) lifetime risk is (units (unknown) date) unknown) (unknown) (no (unknown) (unknown) management of (units ( unknown) date) unknown) (unknown) (no (unknown) (unknown) risk is 20% (units (un known) date) unknown) (unknown) (no (unknown) (unknown) vascular (units (unkno wn) date) unknown) Result panel 6 (unknown) (no date) (unknown) (unknown) 0.9 % (unkn own) (unknown) (no date) (unknown) (unknown) 1.5 % (unkn own) (unknown) (no date) (unknown) (unknown) 100 /uL (unkn own) (unknown) (no date) (unknown) (unknown) 100 /uL (unkn own) (unknown) (no date) (unknown) (unknown) 12.0 g/dL (unkn own) (unknown) (no date) (unknown) (unknown) 13.6 % (unkn own) (unknown) (no date) (unknown) (unknown) 1400 /uL (unkn own) (unknown) (no date) (unknown) (unknown) 164 X10 3/uL (unkn own) (unknown) (no date) (unknown) (unknown) 24.0 % (unkn own) (unknown) (no date) (unknown) (unknown) 3.89 X10 6/uL (unkn own) (unknown) (no date) (unknown) (unknown) 30.8 PG (unkn own) (unknown) (no date) (unknown) (unknown) 33.6 % (unkn own) (unknown) (no date) (unknown) (unknown) 35.6 % (unkn own) (unknown) (no date) (unknown) (unknown) 400 /uL (unkn own) (unknown) (no date) (unknown) (unknown) 4000 /uL (unkn own) (unknown) (no date) (unknown) (unknown) 6.0 X10 3/uL (unkn own) (unknown) (no date) (unknown) (unknown) 66.2 % (unkn own) (unknown) (no date) (unknown) (unknown) 7.4 % (unkn own) (unknown) (no date) (unknown) (unknown) 91.6 fL (unkn own) Result panel 7 (unknown) (no date) (unknown) (unknown) > 60 mL/min (unkn own) (unknown) (no date) (unknown) (unknown) 0.8 mg/dL (unkn own) (unknown) (no date) (unknown) (unknown) 0.87 mg/dL (unkn own) (unknown) (no date) (unknown) (unknown) 1.8 (units unknown) (unknown) (unknown) (no date) (unknown) (unknown) 104 mmol/L (unkn own) (unknown) (no date) (unknown) (unknown) 11 IU/L (unkn own) (unknown) (no date) (unknown) (unknown) 137 mmol/L (unkn own) (unknown) (no date) (unknown) (unknown) 2.0 g/dL (unkn own) (unknown) (no date) (unknown) (unknown) 20 IU/L (unkn own) (unknown) (no date) (unknown) (unknown) 21 mg/dL (unkn own) (unknown) (no date) (unknown) (unknown) 24.1 (units unknown) (unknown) (unknown) (no date) (unknown) (unknown) 29 mmol/L (unkn own) (unknown) (no date) (unknown) (unknown) 3.6 g/dL (unkn own) (unknown) (no date) (unknown) (unknown) 38 U/L (unkn own) (unknown) (no date) (unknown) (unknown) 4.3 mmol/L (unkn own) (unknown) (no date) (unknown) (unknown) 5.6 g/dL (unkn own) (unknown) (no date) (unknown) (unknown) 8.6 mg/dL (unkn own) (unknown) (no date) (unknown) (unknown) 82 mg/dL (unkn own) Result panel 8 (unknown) (no date) (unknown) (unknown) 86 ug/dL (unkn own) Result panel 9 (unknown) (no date) (unknown) (unknown) 199 mg/dL (unkn own) (unknown) (no date) (unknown) (unknown) 264 ug/dL (unkn own) (unknown) (no date) (unknown) (unknown) 33 % (unkn own) (unknown) (no date) (unknown) (unknown) 86 ug/dL (unkn own) Result panel 10 (unknown) (no date) (unknown) (unknown) > 60 mL/min (unkn own) (unknown) (no date) (unknown) (unknown) 0.8 mg/dL (unkn own) (unknown) (no date) (unknown) (unknown) 0.87 mg/dL (unkn own) (unknown) (no date) (unknown) (unknown) 1.8 (units unknown) (unknown) (unknown) (no date) (unknown) (unknown) 104 mmol/L (unkn own) (unknown) (no date) (unknown) (unknown) 11 IU/L (unkn own) (unknown) (no date) (unknown) (unknown) 137 mmol/L (unkn own) (unknown) (no date) (unknown) (unknown) 2.0 g/dL (unkn own) (unknown) (no date) (unknown) (unknown) 20 IU/L (unkn own) (unknown) (no date) (unknown) (unknown) 21 mg/dL (unkn own) (unknown) (no date) (unknown) (unknown) 24.1 (units unknown) (unknown) (unknown) (no date) (unknown) (unknown) 29 mmol/L (unkn own) (unknown) (no date) (unknown) (unknown) 3.6 g/dL (unkn own) (unknown) (no date) (unknown) (unknown) 38 U/L (unkn own) (unknown) (no date) (unknown) (unknown) 4.3 mmol/L (unkn own) (unknown) (no date) (unknown) (unknown) 5.6 g/dL (unkn own) (unknown) (no date) (unknown) (unknown) 8.6 mg/dL (unkn own) (unknown) (no date) (unknown) (unknown) 82 mg/dL (unkn own) (unknown) (no date) (unknown) (unknown) 863 pg/mL (unkn own) Result panel 11 (unknown) (no (unknown) (unknown) (no value) (units (unk nown) date) unknown) (unknown) (no (unknown) (unknown) (no value) (units (unk nown) date) unknown) (unknown) (no (unknown) (unknown) [place] (units ( unknown) date) [id number] unknown) (unknown) (no (unknown) (unknown) Draft (units (unkno wn) date) unknown) (unknown) (no (unknown) (unknown) [facility] (units (unknown) date) Office Visit unknown) (unknown) (no (unknown) (unknown) [facility]) (unknown) (no (unknown) (unknown) (no value) (units (unk nown) date) unknown) (unknown) (no (unknown) (unknown) 03/15/22 (units (unkno wn) date) unknown) (unknown) (no (unknown) (unknown) [id number] (units (unkno wn) date) unknown) (unknown) (no (unknown) (unknown) Age/Sex: 86 / F (units (unknown) date) Date of unknown) Service: (unknown) (no (unknown) (unknown) Allergies (units (unkn own) date) unknown) (unknown) (no (unknown) (unknown) Anemia (units (unkno wn) date) unknown) (unknown) (no (unknown) (unknown) Attending Dr: (units ( unknown) date) Natan Waldron unknown) D.O. (unknown) (no (unknown) (unknown) Brother Age: 86 (units (unknown) date) Heart disease unknown) (unknown) (no (unknown) (unknown) Cataracts, (units (unk nown) date) bilateral unknown) (Unknown) (unknown) (no (unknown) (unknown) : 1935 (units (unknown) date) Acct:[id number] unknown) (unknown) (no (unknown) (unknown) Dept at (units (unkno wn) date) . unknown) (unknown) (no (unknown) (unknown) Documented By: (units (unknown) date) Natan Waldron unknown) D.O. 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 (unknown) (no (unknown) (unknown) Follow Up Labs - (units (unknown) date) done on unknown) (unknown) (no (unknown) (unknown) GERD (units (unkno wn) date) (gastroesophageal unknown) reflux disease) (Unknown) (unknown) (no (unknown) (unknown) Hx of cataract (units (unknown) date) surgery (-2014) unknown) (unknown) (no (unknown) (unknown) Hyperlipemia (units (u nknown) date) (Unknown) unknown) (unknown) (no (unknown) (unknown) Hypertension (units (u nknown) date) (Unknown) unknown) (unknown) (no (unknown) (unknown) Intake (units (unkno wn) date) unknown) (unknown) (no (unknown) (unknown) Intake Note: (units (u nknown) date) unknown) (unknown) (no (unknown) (unknown) Intake performed (units (unknown) date) by: Monica Sage unknown) D (unknown) (no (unknown) (unknown) Intake- Clincial (units (unknown) date) Staff unknown) (unknown) (no (unknown) (unknown) Knee pain (units (unkn own) date) unknown) (unknown) (no (unknown) (unknown) LS: 02/08/22 - (units (u nknown) date) Knee pain + unknown) Injection (unknown) (no (unknown) (unknown) Last Menstural (units (unknown) date) Cycle + Details unknown) (unknown) (no (unknown) (unknown) Left knee pain (units (unknown) date) unknown) (unknown) (no (unknown) (unknown) Loc: [facility] (units (unkno wn) date) unknown) (unknown) (no (unknown) (unknown) Low back pain (units ( unknown) date) unknown) (unknown) (no (unknown) (unknown) Medical History (units (unknown) date) (Reviewed unknown) 02/08/22 @ 12:10 by Natan Waldron DO) (unknown) (no (unknown) (unknown) Mitral (units (unkno wn) date) regurgitation unknown) (Unknown) (unknown) (no (unknown) (unknown) Mother (units (unkno wn) date) No unknown) problems noted. (unknown) (no (unknown) (unknown) No Known Drug (units ( unknown) date) Allergies Allergy unknown) (Verified 11/30/21 11:14) (unknown) (no (unknown) (unknown) Osteoarthritis (units (unknown) date) of right knee unknown) (unknown) (no (unknown) (unknown) Other Menstrual (units (unknown) date) Period: unknown) Postmenopausal (unknown) (no (unknown) (unknown) PFSH (units (unkno wn) date) unknown) (unknown) (no (unknown) (unknown) Patient: (units (unkno wn) date) Dana Pillai unknown) MR#: [id number] (unknown) (no (unknown) (unknown) Reason For Visit (units (unknown) date) unknown) (unknown) (no (unknown) (unknown) Routine Follow (units (unknown) date) Up unknown) (unknown) (no (unknown) (unknown) Signed By: (units (unk nown) date) unknown) (unknown) (no (unknown) (unknown) Smoking Status: (units (unknown) date) Never smoker unknown) (unknown) (no (unknown) (unknown) Status post (units (un known) date) right breast unknown) lumpectomy (-1966) (unknown) (no (unknown) (unknown) Superficial (units (un known) date) laceration unknown) (unknown) (no (unknown) (unknown) Surgical History (units (unknown) date) (Reviewed unknown) 02/08/22 @ 12:10 by Natan Waldron DO) (unknown) (no (unknown) (unknown) This note may (units ( unknown) date) have been all or unknown) partially generated using voice recognition (unknown) (no (unknown) (unknown) Tobacco + (units (unkn own) date) Substance Use unknown) (unknown) (no (unknown) (unknown) Tobacco Status (units (unknown) date) unknown) (unknown) (no (unknown) (unknown) Urinary (units (unkno wn) date) incontinence unknown) (Unknown) (unknown) (no (unknown) (unknown) Visit Reasons: 6 (units (unknown) date) mo f/u w labs unknown) (unknown) (no (unknown) (unknown) Well adult exam (units (unknown) date) unknown) (unknown) (no (unknown) (unknown) alcohol intake: (units (unknown) date) current unknown) (unknown) (no (unknown) (unknown) have occurred. (units (unknown) date) If there are any unknown) questions, please contact the Medical Records (unknown) (no (unknown) (unknown) may occur. (units (unk nown) date) Occasional unknown) wrong-word or 'sound-alike' substitutions may have (unknown) (no (unknown) (unknown) occurred due to (units (unknown) date) the inherent unknown) limitations of voice recognition software. Please (unknown) (no (unknown) (unknown) read the note (units ( unknown) date) carefully and unknown) recognize, using context, where these substitutions (unknown) (no (unknown) (unknown) software. (units (unkn own) date) Although every unknown) effort is made to edit content, solar engineer errors (unknown) (no (unknown) (unknown) substance use (units ( unknown) date) type: does not unknown) use Result panel 12 (unknown) (no (unknown) (unknown) (no value) (units (unk nown) date) unknown) (unknown) (no (unknown) (unknown) (no value) (units (unk nown) date) unknown) (unknown) (no (unknown) (unknown) LE[place]N Nixon (units ( unknown) date) [id number] unknown) (unknown) (no (unknown) (unknown) Draft (units (unkno wn) date) unknown) (unknown) (no (unknown) (unknown) Family Practice (units (unknown) date) Office Visit unknown) (unknown) (no (unknown) (unknown) [facility] unknown) (unknown) (no (unknown) (unknown) (no value) (units (unk nown) date) unknown) (unknown) (no (unknown) (unknown) #100 grams (units (unk nown) date) 10/12/20 [Rx unknown) Confirmed 03/15/22] (unknown) (no (unknown) (unknown) 02/17/18 [History (units (unknown) date) Confirmed unknown) 03/15/22] (unknown) (no (unknown) (unknown) 03/15/22 (units (unkno wn) date) unknown) (unknown) (no (unknown) (unknown) 03/15/22] (units (unkn own) date) unknown) (unknown) (no (unknown) (unknown) [id number] (units (unkno wn) date) unknown) (unknown) (no (unknown) (unknown) Age/Sex: 86 / F (units (unknown) date) Date of Service: unknown) (unknown) (no (unknown) (unknown) Allergies (units (unkn own) date) unknown) (unknown) (no (unknown) (unknown) Anemia (units (unkno wn) date) unknown) (unknown) (no (unknown) (unknown) Attending Dr: Natan (units (unknown) date) Saravanan Waldron DShannenOShannen unknown) (unknown) (no (unknown) (unknown) Brother Age: 86 (units (unknown) date) Heart disease unknown) (unknown) (no (unknown) (unknown) Cataracts, (units (unk nown) date) bilateral unknown) (Unknown) (unknown) (no (unknown) (unknown) : 1935 (units (unknown) date) Acct:[id number] unknown) (unknown) (no (unknown) (unknown) Dept at (units (unkno wn) date) . unknown) (unknown) (no (unknown) (unknown) Documented By: (units (unknown) date) Natan Waldron unknown) D.O. 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 (unknown) (no (unknown) (unknown) Follow Up Labs - (units (unknown) date) done on 03/13/22 unknown) (unknown) (no (unknown) (unknown) GERD (units (unkno wn) date) (gastroesophageal unknown) reflux disease) (Unknown) (unknown) (no (unknown) (unknown) Hx of cataract (units (unknown) date) surgery () unknown) (unknown) (no (unknown) (unknown) Hyperlipemia (units (u nknown) date) (Unknown) unknown) (unknown) (no (unknown) (unknown) Hypertension (units (u nknown) date) (Unknown) unknown) (unknown) (no (unknown) (unknown) Intake (units (unkno wn) date) unknown) (unknown) (no (unknown) (unknown) Intake Note: (units (u nknown) date) unknown) (unknown) (no (unknown) (unknown) Intake performed (units (unknown) date) by: Monica Sage unknown) (unknown) (no (unknown) (unknown) Intake- Clincial (units (unknown) date) Staff unknown) (unknown) (no (unknown) (unknown) Knee pain (units (unkn own) date) unknown) (unknown) (no (unknown) (unknown) LS: 02/08/22 - Knee (units (unknown) date) pain + Injection unknown) (unknown) (no (unknown) (unknown) Last Menstural (units (unknown) date) Cycle + Details unknown) (unknown) (no (unknown) (unknown) Left knee pain (units (unknown) date) unknown) (unknown) (no (unknown) (unknown) Loc: [facility] (units (unkno wn) date) unknown) (unknown) (no (unknown) (unknown) Low back pain (units ( unknown) date) unknown) (unknown) (no (unknown) (unknown) Medical History (units (unknown) date) (Reviewed 02/08/22 unknown) @ 12:10 by Natan Waldron DO) (unknown) (no (unknown) (unknown) Medications (units (un known) date) unknown) (unknown) (no (unknown) (unknown) Mitral (units (unkno wn) date) regurgitation unknown) (Unknown) (unknown) (no (unknown) (unknown) Mother (units (unknown) date) No problems unknown) noted. (unknown) (no (unknown) (unknown) No Known Drug (units ( unknown) date) Allergies Allergy unknown) (Verified 03/15/22 10:39) (unknown) (no (unknown) (unknown) Osteoarthritis of (units (unknown) date) right knee unknown) (unknown) (no (unknown) (unknown) Other Menstrual (units (unknown) date) Period: unknown) Postmenopausal (unknown) (no (unknown) (unknown) PFSH (units (unkno wn) date) unknown) (unknown) (no (unknown) (unknown) Parking Permit... (units (unknown) date) #1 ea 02/08/22 [Rx unknown) Confirmed 03/15/22] (unknown) (no (unknown) (unknown) Patient: (units (unkno wn) date) Dana Pillai M unknown) MR#: [id number] (unknown) (no (unknown) (unknown) Reason For Visit (units (unknown) date) unknown) (unknown) (no (unknown) (unknown) Review/Discuss. (units (unknown) date) unknown) (unknown) (no (unknown) (unknown) Routine Follow Up (units (unknown) date) unknown) (unknown) (no (unknown) (unknown) Signed By: (units (unk nown) date) unknown) (unknown) (no (unknown) (unknown) Smoking Status: (units (unknown) date) Never smoker unknown) (unknown) (no (unknown) (unknown) Status post right (units (unknown) date) breast lumpectomy unknown) (-1966) (unknown) (no (unknown) (unknown) Superficial (units (un known) date) laceration unknown) (unknown) (no (unknown) (unknown) Surgical History (units (unknown) date) (Reviewed 02/08/22 unknown) @ 12:10 by Natan Waldron DO) (unknown) (no (unknown) (unknown) This note may (units ( unknown) date) have been all or unknown) partially generated using voice recognition (unknown) (no (unknown) (unknown) Tobacco + (units (unkn own) date) Substance Use unknown) (unknown) (no (unknown) (unknown) Tobacco Status (units (unknown) date) unknown) (unknown) (no (unknown) (unknown) Urinary (units (unkno wn) date) incontinence unknown) (Unknown) (unknown) (no (unknown) (unknown) Visit Reasons: 6 (units (unknown) date) mo f/u w labs unknown) (unknown) (no (unknown) (unknown) Well adult exam (units (unknown) date) unknown) (unknown) (no (unknown) (unknown) [GARLIC] ##0 (units (u nknown) date) 12/26/16 [History unknown) Confirmed 03/15/22] (unknown) (no (unknown) (unknown) [Rx Confirmed (units ( unknown) date) 03/15/22] unknown) (unknown) (no (unknown) (unknown) alcohol intake: (units (unknown) date) current unknown) (unknown) (no (unknown) (unknown) amlodipine 5 mg (units (unknown) date) tablet 5 mg PO unknown) DAILY 02/17/18 [History Confirmed 03/15/22] (unknown) (no (unknown) (unknown) apixaban 5 mg (units ( unknown) date) tablet (Eliquis) 5 unknown) mg PO BID #180 tabs 10/12/20 [Rx Confirmed (unknown) (no (unknown) (unknown) cholecalciferol (units (unknown) date) (vitamin D3) 25 unknown) mcg (1,000 unit) capsule 1,000 unit PO DAILY (unknown) (no (unknown) (unknown) dapsone 25 mg (units ( unknown) date) tablet 25 mg PO unknown) .COMPLEX 08/20/18 [History Confirmed 03/15/22] (unknown) (no (unknown) (unknown) diclofenac sodium (units (unknown) date) 1 % topical gel unknown) (Voltaren) 2 g topical ONCE arthritis pain (unknown) (no (unknown) (unknown) have occurred. (units (unknown) date) If there are any unknown) questions, please contact the Medical Records (unknown) (no (unknown) (unknown) losartan 100 mg (units (unknown) date) tablet 100 mg PO unknown) DAILY #90 tabs 08/20/18 [Rx Confirmed 03/15/22] (unknown) (no (unknown) (unknown) may occur. (units (unk nown) date) Occasional unknown) wrong-word or 'sound-alike' substitutions may have (unknown) (no (unknown) (unknown) metoprolol (units (unk nown) date) tartrate 50 mg unknown) tablet 50 mg PO BID #180 tabs 06/10/17 [Rx Confirmed (unknown) (no (unknown) (unknown) occurred due to (units (unknown) date) the inherent unknown) limitations of voice recognition software. Please (unknown) (no (unknown) (unknown) read the note (units ( unknown) date) carefully and unknown) recognize, using context, where these substitutions (unknown) (no (unknown) (unknown) simvastatin 20 mg (units (unknown) date) tablet 20 mg PO HS unknown) #90 tabs 11/16/21 [Rx Confirmed 03/15/22] (unknown) (no (unknown) (unknown) software. (units (unkn own) date) Although every unknown) effort is made to edit content, solar engineer errors (unknown) (no (unknown) (unknown) substance use (units ( unknown) date) type: does not use unknown) (unknown) (no (unknown) (unknown) tolterodine 2 mg (units (unknown) date) capsule,extended unknown) release 24 hr 2 mg PO DAILY #90 caps 09/11/21 Result panel 13 (unknown) (no (unknown) (unknown) (no value) (units (unk nown) date) unknown) (unknown) (no (unknown) (unknown) (no value) (units (unk nown) date) unknown) (unknown) (no (unknown) (unknown) (no value) (units (unk nown) date) unknown) (unknown) (no (unknown) (unknown) 03/15/22 (units (unkno wn) date) unknown) (unknown) (no (unknown) (unknown) 10:44 (units (unkno wn) date) unknown) (unknown) (no (unknown) (unknown) [place] (units ( unknown) date) [id number] unknown) (unknown) (no (unknown) (unknown) Draft (units (unkno wn) date) unknown) (unknown) (no (unknown) (unknown) Family Practice (units (unknown) date) Office Visit unknown) (unknown) (no (unknown) (unknown) [facility] ([facility] unknown) (unknown) (no (unknown) (unknown) (no value) (units (unk nown) date) unknown) (unknown) (no (unknown) (unknown) #100 grams (units (unk nown) date) 10/12/20 [Rx unknown) Confirmed 03/15/22] (unknown) (no (unknown) (unknown) 02/17/18 [History (units (unknown) date) Confirmed unknown) 03/15/22] (unknown) (no (unknown) (unknown) 03/15/22 (units (unkno wn) date) unknown) (unknown) (no (unknown) (unknown) 03/15/22] (units (unkn own) date) unknown) (unknown) (no (unknown) (unknown) [id number] (units (unkno wn) date) unknown) (unknown) (no (unknown) (unknown) Age/Sex: 86 / F (units (unknown) date) Date of Service: unknown) (unknown) (no (unknown) (unknown) Allergies (units (unkn own) date) unknown) (unknown) (no (unknown) (unknown) Anemia (units (unkno wn) date) unknown) (unknown) (no (unknown) (unknown) Attending Dr: Natan (units (unknown) date) Saravanan GastelumOShannen unknown) (unknown) (no (unknown) (unknown) BMI 24.0 (units (un known) date) unknown) (unknown) (no (unknown) (unknown) BP 136/86 (units (u nknown) date) unknown) (unknown) (no (unknown) (unknown) Blood Pressure (units (unknown) date) Location Lt unknown) brachial (unknown) (no (unknown) (unknown) Brother Age: 86 (units (unknown) date) Heart disease unknown) (unknown) (no (unknown) (unknown) Cataracts, (units (unk nown) date) bilateral unknown) (Unknown) (unknown) (no (unknown) (unknown) Completed here. (units (unknown) date) unknown) (unknown) (no (unknown) (unknown) : 1935 (units (unknown) date) Acct:[id number] unknown) (unknown) (no (unknown) (unknown) Dept at (units (unkno wn) date) . unknown) (unknown) (no (unknown) (unknown) Documented By: (units (unknown) date) Natan Waldron unknown) D.O. 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 (unknown) (no (unknown) (unknown) Follow Up Labs - (units (unknown) date) done on 03/13/22 unknown) (unknown) (no (unknown) (unknown) GERD (units (unkno wn) date) (gastroesophageal unknown) reflux disease) (Unknown) (unknown) (no (unknown) (unknown) Height 5 ft (units (unknown) date) 3.25 in unknown) (unknown) (no (unknown) (unknown) Here today to (units ( unknown) date) follow up on Labs unknown) and patient states she was advised she was (unknown) (no (unknown) (unknown) Hx of cataract (units (unknown) date) surgery (-2015) unknown) (unknown) (no (unknown) (unknown) Hyperlipemia (units (u nknown) date) (Unknown) unknown) (unknown) (no (unknown) (unknown) Hypertension (units (u nknown) date) (Unknown) unknown) (unknown) (no (unknown) (unknown) Intake (units (unkno wn) date) unknown) (unknown) (no (unknown) (unknown) Intake Note: (units (u nknown) date) unknown) (unknown) (no (unknown) (unknown) Intake performed (units (unknown) date) by: Monica Sage unknown) (unknown) (no (unknown) (unknown) Intake- Clincial (units (unknown) date) Staff unknown) (unknown) (no (unknown) (unknown) Knee pain (units (unkn own) date) unknown) (unknown) (no (unknown) (unknown) LS: 02/08/22 - Knee (units (unknown) date) pain + Injection unknown) (unknown) (no (unknown) (unknown) Last Menstural (units (unknown) date) Cycle + Details unknown) (unknown) (no (unknown) (unknown) Left knee pain (units (unknown) date) unknown) (unknown) (no (unknown) (unknown) Loc: [facility] (units (unkno wn) date) unknown) (unknown) (no (unknown) (unknown) Low back pain (units ( unknown) date) unknown) (unknown) (no (unknown) (unknown) Medical History (units (unknown) date) (Reviewed 02/08/22 unknown) @ 12:10 by Natna Waldron DO) (unknown) (no (unknown) (unknown) Medications (units (un known) date) unknown) (unknown) (no (unknown) (unknown) Mitral (units (unkno wn) date) regurgitation unknown) (Unknown) (unknown) (no (unknown) (unknown) Mother (units (unknown) date) No problems unknown) noted. 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 (units (unknown) date) #1 ea 02/08/22 [Rx unknown) Confirmed 03/15/22] (unknown) (no (unknown) (unknown) Patient: (units (unkno wn) date) Dana Pillai M unknown) MR#: [id number] (unknown) (no (unknown) (unknown) Position (units (unkno wn) date) Sitting unknown) (unknown) (no (unknown) (unknown) Pulse 61 (units (un known) date) unknown) (unknown) (no (unknown) (unknown) Pulse Oximetry (units (unknown) date) (%) 95 unknown) (unknown) (no (unknown) (unknown) Pulse Source (units (u nknown) date) Monitor unknown) (unknown) (no (unknown) (unknown) Reason For Visit (units (unknown) date) unknown) (unknown) (no (unknown) (unknown) Review (units (unkno wn) date) unknown) (unknown) (no (unknown) (unknown) Review/Discuss. (units (unknown) date) unknown) (unknown) (no (unknown) (unknown) Routine Follow Up (units (unknown) date) unknown) (unknown) (no (unknown) (unknown) Signed By: (units (unk nown) date) unknown) (unknown) (no (unknown) (unknown) Smoking Status: (units (unknown) date) Never smoker unknown) (unknown) (no (unknown) (unknown) States this was (units (unknown) date) for just the inj unknown) (unknown) (no (unknown) (unknown) Status post right (units (unknown) date) breast lumpectomy unknown) (-1966) (unknown) (no (unknown) (unknown) Superficial (units (un known) date) laceration unknown) (unknown) (no (unknown) (unknown) Surgical History (units (unknown) date) (Reviewed 02/08/22 unknown) @ 12:10 by Natan Waldron DO) (unknown) (no (unknown) (unknown) This note may (units ( unknown) date) have been all or unknown) partially generated using voice recognition (unknown) (no (unknown) (unknown) Tobacco + (units (unkn own) date) Substance Use unknown) (unknown) (no (unknown) (unknown) Tobacco Status (units (unknown) date) unknown) (unknown) (no (unknown) (unknown) Urinary (units (unkno wn) date) incontinence unknown) (Unknown) (unknown) (no (unknown) (unknown) Visit Reasons: 6 (units (unknown) date) mo f/u w labs unknown) (unknown) (no (unknown) (unknown) Vitals (units (unkno wn) date) unknown) (unknown) (no (unknown) (unknown) Weight 137 lb (units (unknown) date) 2 oz unknown) (unknown) (no (unknown) (unknown) Well adult exam (units (unknown) date) unknown) (unknown) (no (unknown) (unknown) [GARLIC] ##0 (units (u nknown) date) 12/26/16 [History unknown) Confirmed 03/15/22] (unknown) (no (unknown) (unknown) [Rx Confirmed (units ( unknown) date) 03/15/22] unknown) (unknown) (no (unknown) (unknown) alcohol intake: (units (unknown) date) current unknown) (unknown) (no (unknown) (unknown) amlodipine 5 mg (units (unknown) date) tablet 5 mg PO unknown) DAILY 02/17/18 [History Confirmed 03/15/22] (unknown) (no (unknown) (unknown) apixaban 5 mg (units ( unknown) date) tablet (Eliquis) 5 unknown) mg PO BID #180 tabs 10/12/20 [Rx Confirmed (unknown) (no (unknown) (unknown) borderline (units (unk nown) date) anemic. unknown) (unknown) (no (unknown) (unknown) cholecalciferol (units (unknown) date) (vitamin D3) 25 unknown) mcg (1,000 unit) capsule 1,000 unit PO DAILY (unknown) (no (unknown) (unknown) dapsone 25 mg (units ( unknown) date) tablet 25 mg PO unknown) .COMPLEX 08/20/18 [History Confirmed 03/15/22] (unknown) (no (unknown) (unknown) diclofenac sodium (units (unknown) date) 1 % topical gel unknown) (Voltaren) 2 g topical ONCE arthritis pain (unknown) (no (unknown) (unknown) have occurred. (units (unknown) date) If there are any unknown) questions, please contact the Medical Records (unknown) (no (unknown) (unknown) losartan 100 mg (units (unknown) date) tablet 100 mg PO unknown) DAILY #90 tabs 08/20/18 [Rx Confirmed 03/15/22] (unknown) (no (unknown) (unknown) may occur. (units (unk nown) date) Occasional unknown) wrong-word or 'sound-alike' substitutions may have (unknown) (no (unknown) (unknown) metoprolol (units (unk nown) date) tartrate 50 mg unknown) tablet 50 mg PO BID #180 tabs 06/10/17 [Rx Confirmed (unknown) (no (unknown) (unknown) occurred due to (units (unknown) date) the inherent unknown) limitations of voice recognition software. Please (unknown) (no (unknown) (unknown) read the note (units ( unknown) date) carefully and unknown) recognize, using context, where these substitutions (unknown) (no (unknown) (unknown) simvastatin 20 mg (units (unknown) date) tablet 20 mg PO HS unknown) #90 tabs 11/16/21 [Rx Confirmed 03/15/22] (unknown) (no (unknown) (unknown) software. (units (unkn own) date) Although every unknown) effort is made to edit content, solar engineer errors (unknown) (no (unknown) (unknown) substance use (units ( unknown) date) type: does not use unknown) (unknown) (no (unknown) (unknown) tolterodine 2 mg (units (unknown) date) capsule,extended unknown) release 24 hr 2 mg PO DAILY #90 caps 09/11/21 Result panel 14 (unknown) (no (unknown) (unknown) (no value) (units (unk nown) date) unknown) (unknown) (no (unknown) (unknown) Assessment and (units (unknown) date) Plan: unknown) (unknown) (no (unknown) (unknown) Qualifiers: (units (un known) date) unknown) (unknown) (no (unknown) (unknown) Status: Acute (units ( unknown) date) unknown) (unknown) (no (unknown) (unknown) Status: Chronic (units (unknown) date) unknown) (unknown) (no (unknown) (unknown) (no value) (units (unk nown) date) unknown) (unknown) (no (unknown) (unknown) (no value) (units (unk nown) date) unknown) (unknown) (no (unknown) (unknown) 03/15/22 (units (unkno wn) date) unknown) (unknown) (no (unknown) (unknown) 03/15/22 1121 (units ( unknown) date) unknown) (unknown) (no (unknown) (unknown) 10:44 (units (unkno wn) date) unknown) (unknown) (no (unknown) (unknown) [place], [place] (units ( unknown) date) [id number] unknown) (unknown) (no (unknown) (unknown) Anemia type: iron (units (unknown) date) deficiency Iron unknown) deficiency anemia type: inadequate (unknown) (no (unknown) (unknown) Chronicity: (units (un known) date) chronic Qualified unknown) Code(s): M25.562 - Pain in left knee; (unknown) (no (unknown) (unknown) Family Practice (units (unknown) date) Office Visit unknown) (unknown) (no (unknown) (unknown) [facility] ([facility] date[facility] unknown) (unknown) (no (unknown) (unknown) Signed (units (unkno wn) date) unknown) (unknown) (no (unknown) (unknown) (no value) (units (unk nown) date) unknown) (unknown) (no (unknown) (unknown) #100 grams (units (unk nown) date) 10/12/20 [Rx unknown) Confirmed 03/15/22] (unknown) (no (unknown) (unknown) (1) Anemia: (units (un known) date) unknown) (unknown) (no (unknown) (unknown) (2) Essential (units ( unknown) date) hypertension: unknown) (unknown) (no (unknown) (unknown) (3) Left knee (units ( unknown) date) pain: unknown) (unknown) (no (unknown) (unknown) 02/17/18 [History (units (unknown) date) Confirmed unknown) 03/15/22] (unknown) (no (unknown) (unknown) 03/15/22 (units (unkno wn) date) unknown) (unknown) (no (unknown) (unknown) 03/15/22] (units (unkn own) date) unknown) (unknown) (no (unknown) (unknown) [id number] (units (unkno wn) date) unknown) (unknown) (no (unknown) (unknown) 86-year-old (units (un known) date) female with a unknown) history of hypertension and iron deficiency anemia as (unknown) (no (unknown) (unknown) Abdomen-soft (units (u nknown) date) nontender, no HSM, unknown) no palpable masses rebound or guarding (unknown) (no (unknown) (unknown) Age/Sex: 86 / F (units (unknown) date) Date of Service: unknown) (unknown) (no (unknown) (unknown) Allergies (units (unkn own) date) unknown) (unknown) (no (unknown) (unknown) Anemia (units (unkno wn) date) unknown) (unknown) (no (unknown) (unknown) Assessment + Plan (units (unknown) date) unknown) (unknown) (no (unknown) (unknown) Attending Dr: Natan (units (unknown) date) Saravanan Waldron DShannenOShannen unknown) (unknown) (no (unknown) (unknown) BMI 24.0 (units (un known) date) unknown) (unknown) (no (unknown) (unknown) BP 136/86 (units (u nknown) date) unknown) (unknown) (no (unknown) (unknown) Blood Pressure (units (unknown) date) Location Lt unknown) brachial (unknown) (no (unknown) (unknown) Brother Age: 86 (units (unknown) date) Heart disease unknown) (unknown) (no (unknown) (unknown) Cataracts, (units (unk nown) date) bilateral unknown) (Unknown) (unknown) (no (unknown) (unknown) Chest-heart (units (unk nown) date) regular rate and unknown) rhythm lungs clear to auscultation no wheezes rales (unknown) (no (unknown) (unknown) Chief Complaint (units (unknown) date) unknown) (unknown) (no (unknown) (unknown) Chief Complaint: (units (unknown) date) Follow-up unknown) underlying health history, lab (unknown) (no (unknown) (unknown) Completed here. (units (unknown) date) unknown) (unknown) (no (unknown) (unknown) : 1935 (units (unknown) date) Acct:[id number] unknown) (unknown) (no (unknown) (unknown) Dept at (units (unkno wn) date) . unknown) (unknown) (no (unknown) (unknown) Details: (units (unkno wn) date) unknown) (unknown) (no (unknown) (unknown) Documented By: (units (unknown) date) Natan Waldron unknown) D.O. 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 unknown) (Unknown) (unknown) (no (unknown) (unknown) Evening primrose (units (unknown) date) PO DAILY 08/20/18 unknown) [History Confirmed 03/15/22] (unknown) (no (unknown) (unknown) Exam (units (unkno wn) date) unknown) (unknown) (no (unknown) (unknown) Exam Narrative (units (unknown) date) unknown) (unknown) (no (unknown) (unknown) Exam Narrative: (units (unknown) date) unknown) (unknown) (no (unknown) (unknown) Family History (units (unknown) date) (Reviewed 03/15/22 unknown) @ 11:18 by Natan Waldron DO) (unknown) (no (unknown) (unknown) Father (units (unknown) date) No problems unknown) noted. (unknown) (no (unknown) (unknown) Follow Up Labs - (units (unknown) date) done on 03/13/22 unknown) (unknown) (no (unknown) (unknown) G89.29 - Other (units (unknown) date) chronic pain unknown) (unknown) (no (unknown) (unknown) GERD (units (unkno wn) date) (gastroesophageal unknown) reflux disease) (Unknown) (unknown) (no (unknown) (unknown) General physical (units (unknown) date) examination, unknown) physical examination (unknown) (no (unknown) (unknown) HPI (units (unkno wn) date) unknown) (unknown) (no (unknown) (unknown) Head-normocephali (units (unknown) date) c atraumatic, eyes unknown) PERRLA EOMI, (unknown) (no (unknown) (unknown) Height 5 ft (units (unknown) date) 3.25 in unknown) (unknown) (no (unknown) (unknown) Her blood pressure (units (unknown) date) is better today's unknown) visit she denies any headache chest pain or (unknown) (no (unknown) (unknown) Here today to (units ( unknown) date) follow up on Labs unknown) and patient states she was advised she was (unknown) (no (unknown) (unknown) Hx of cataract (units (unknown) date) surgery (-2014) unknown) (unknown) (no (unknown) (unknown) Hyperlipemia (units (u nknown) date) (Unknown) unknown) (unknown) (no (unknown) (unknown) Hypertension (units (u nknown) date) (Unknown) unknown) (unknown) (no (unknown) (unknown) Intake (units (unkno wn) date) unknown) (unknown) (no (unknown) (unknown) Intake Note: (units (u nknown) date) unknown) (unknown) (no (unknown) (unknown) Intake performed (units (unknown) date) by: Monica Sage unknown) (unknown) (no (unknown) (unknown) Intake- Clincial (units (unknown) date) Staff unknown) (unknown) (no (unknown) (unknown) Knee pain (units (unkn own) date) unknown) (unknown) (no (unknown) (unknown) LS: 02/08/22 - Knee (units (unknown) date) pain + Injection unknown) (unknown) (no (unknown) (unknown) Lab results were (units (unknown) date) reviewed which unknown) revealed gradual improvement she will continue (unknown) (no (unknown) (unknown) Last Menstural (units (unknown) date) Cycle + Details unknown) (unknown) (no (unknown) (unknown) Left knee pain (units (unknown) date) unknown) (unknown) (no (unknown) (unknown) Loc: [facility] (units (unkno wn) date) unknown) (unknown) (no (unknown) (unknown) Low back pain (units ( unknown) date) unknown) (unknown) (no (unknown) (unknown) Medical History (units (unknown) date) (Reviewed 03/15/22 unknown) @ 11:18 by Natan Waldron DO) (unknown) (no (unknown) (unknown) Medications (units (un known) date) unknown) (unknown) (no (unknown) (unknown) Mitral (units (unkno wn) date) regurgitation unknown) (Unknown) (unknown) (no (unknown) (unknown) Mother (units (unknown) date) No problems unknown) noted. 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 (units (unknown) date) #1 ea 02/08/22 [Rx unknown) Confirmed 03/15/22] (unknown) (no (unknown) (unknown) Patient: (units (unkno wn) date) Dana Pillai M unknown) MR#: [id number] (unknown) (no (unknown) (unknown) Position (units (unkno wn) date) Sitting unknown) (unknown) (no (unknown) (unknown) Pulse 61 (units (un known) date) unknown) (unknown) (no (unknown) (unknown) Pulse Oximetry (units (unknown) date) (%) 95 unknown) (unknown) (no (unknown) (unknown) Pulse Source (units (u nknown) date) Monitor unknown) (unknown) (no (unknown) (unknown) ROS (units (unkno wn) date) unknown) (unknown) (no (unknown) (unknown) ROS Narrative (units ( unknown) date) unknown) (unknown) (no (unknown) (unknown) ROS Narrative: (units (unknown) date) unknown) (unknown) (no (unknown) (unknown) ROS per HPI (units (un known) date) patient denies any unknown) significant chest pain exertional fatigue change (unknown) (no (unknown) (unknown) Reason For Visit (units (unknown) date) unknown) (unknown) (no (unknown) (unknown) Review (units (unkno wn) date) unknown) (unknown) (no (unknown) (unknown) Review/Discuss. (units (unknown) date) unknown) (unknown) (no (unknown) (unknown) Routine Follow Up (units (unknown) date) unknown) (unknown) (no (unknown) (unknown) Signed By: (units (unk nown) date) <Electronically unknown) signed by Nirav PerezO.> (unknown) (no (unknown) (unknown) Smoking Status: (units (unknown) date) Never smoker unknown) (unknown) (no (unknown) (unknown) States this was (units (unknown) date) for just the inj unknown) (unknown) (no (unknown) (unknown) Status post right (units (unknown) date) breast lumpectomy unknown) (-1966) (unknown) (no (unknown) (unknown) Superficial (units (un known) date) laceration unknown) (unknown) (no (unknown) (unknown) Surgical History (units (unknown) date) (Reviewed 03/15/22 unknown) @ 11:18 by Natan Waldron DO) (unknown) (no (unknown) (unknown) This note may (units ( unknown) date) have been all or unknown) partially generated using voice recognition (unknown) (no (unknown) (unknown) This past (units (unkn own) date) injection was more unknown) efficacious she reports no real substantial (unknown) (no (unknown) (unknown) Tobacco + (units (unkn own) date) Substance Use unknown) (unknown) (no (unknown) (unknown) Tobacco Status (units (unknown) date) unknown) (unknown) (no (unknown) (unknown) Urinary (units (unkno wn) date) incontinence unknown) (Unknown) (unknown) (no (unknown) (unknown) Visit Reasons: 6 (units (unknown) date) mo f/u w labs unknown) (unknown) (no (unknown) (unknown) Vital signs are (units (unknown) date) reported, charted unknown) and reviewed with patient (unknown) (no (unknown) (unknown) Vitals (units (unkno wn) date) unknown) (unknown) (no (unknown) (unknown) Weight 137 lb (units (unknown) date) 2 oz unknown) (unknown) (no (unknown) (unknown) Well adult exam (units (unknown) date) unknown) (unknown) (no (unknown) (unknown) [GARLIC] ##0 (units (u nknown) date) 12/26/16 [History unknown) Confirmed 03/15/22] (unknown) (no (unknown) (unknown) [Rx Confirmed (units ( unknown) date) 03/15/22] unknown) (unknown) (no (unknown) (unknown) alcohol intake: (units (unknown) date) current unknown) (unknown) (no (unknown) (unknown) amlodipine 5 mg (units (unknown) date) tablet 5 mg PO unknown) DAILY 02/17/18 [History Confirmed 03/15/22] (unknown) (no (unknown) (unknown) anemia. She has (units (unknown) date) been compliant unknown) with taking [id number] iron supplement (unknown) (no (unknown) (unknown) apixaban 5 mg (units ( unknown) date) tablet (Eliquis) 5 unknown) mg PO BID #180 tabs 10/12/20 [Rx Confirmed (unknown) (no (unknown) (unknown) back (units (unkno wn) date) approximately 1 unknown) month ago. Patient is looking forward to returning to (unknown) (no (unknown) (unknown) borderline (units (unk nown) date) anemic. unknown) (unknown) (no (unknown) (unknown) change in (units (unkn own) date) exercise capacity unknown) compliant with medications (unknown) (no (unknown) (unknown) cholecalciferol (units (unknown) date) (vitamin D3) 25 unknown) mcg (1,000 unit) capsule 1,000 unit PO DAILY (unknown) (no (unknown) (unknown) dancing (units (unkno wn) date) unknown) (unknown) (no (unknown) (unknown) dancing. Follow (units (unknown) date) back up with us in unknown) 4 months (unknown) (no (unknown) (unknown) dapsone 25 mg (units ( unknown) date) tablet 25 mg PO unknown) .COMPLEX 08/20/18 [History Confirmed 03/15/22] (unknown) (no (unknown) (unknown) diclofenac sodium (units (unknown) date) 1 % topical gel unknown) (Voltaren) 2 g topical ONCE arthritis pain (unknown) (no (unknown) (unknown) dietary iron (units (u nknown) date) intake Qualified unknown) Code(s): D50.8 - Other iron deficiency anemias (unknown) (no (unknown) (unknown) discomfort and (units (unknown) date) looking forward to unknown) returning to an active lifestyle including (unknown) (no (unknown) (unknown) focusing on (units (un known) date) fluids and unknown) avoiding excessive anti-inflammatorie s. On today's (unknown) (no (unknown) (unknown) has diminished (units (unknown) date) unknown) (unknown) (no (unknown) (unknown) have occurred. (units (unknown) date) If there are any unknown) questions, please contact the Medical Records (unknown) (no (unknown) (unknown) history and exam (units (unknown) date) unknown) (unknown) (no (unknown) (unknown) in exercise (units (unk nown) date) capacity bilateral unknown) knee pain especially with weight-bearing activity (unknown) (no (unknown) (unknown) losartan 100 mg (units (unknown) date) tablet 100 mg PO unknown) DAILY #90 tabs 08/20/18 [Rx Confirmed 03/15/22] (unknown) (no (unknown) (unknown) may occur. (units (unk nown) date) Occasional unknown) wrong-word or 'sound-alike' substitutions may have (unknown) (no (unknown) (unknown) metoprolol (units (unk nown) date) tartrate 50 mg unknown) tablet 50 mg PO BID #180 tabs 06/10/17 [Rx Confirmed (unknown) (no (unknown) (unknown) occurred due to (units (unknown) date) the inherent unknown) limitations of voice recognition software. Please (unknown) (no (unknown) (unknown) or rhonchi, good (units (unknown) date) peripheral pulses unknown) (unknown) (no (unknown) (unknown) presentation she (units (unknown) date) notes that her unknown) knee pain has improved status post injection (unknown) (no (unknown) (unknown) read the note (units ( unknown) date) carefully and unknown) recognize, using context, where these substitutions (unknown) (no (unknown) (unknown) recent lab work (units (unknown) date) which revealed unknown) gradually improving renal function and less (unknown) (no (unknown) (unknown) simvastatin 20 mg (units (unknown) date) tablet 20 mg PO HS unknown) #90 tabs 11/16/21 [Rx Confirmed 03/15/22] (unknown) (no (unknown) (unknown) software. (units (unkn own) date) Although every unknown) effort is made to edit content, solar engineer errors (unknown) (no (unknown) (unknown) substance use (units ( unknown) date) type: does not use unknown) (unknown) (no (unknown) (unknown) tolterodine 2 mg (units (unknown) date) capsule,extended unknown) release 24 hr 2 mg PO DAILY #90 caps 09/11/21 (unknown) (no (unknown) (unknown) well as bilateral (units (unknown) date) knee pain presents unknown) the clinic to follow-up in regards to (unknown) (no (unknown) (unknown) with the iron (units ( unknown) date) supplement and unknown) eating a diet high in iron rich foods Result panel 15 (unknown) (no (unknown) (unknown) (no value) (units (unk nown) date) unknown) (unknown) (no (unknown) (unknown) [id number] (units (unkno wn) date) unknown) (unknown) (no (unknown) (unknown) 04/07/22 (units (unkno wn) date) unknown) (unknown) (no (unknown) (unknown) 1. No acute (units (un known) date) intracranial unknown) process. (unknown) (no (unknown) (unknown) [address] [place] [address] (units (unknown) date) unknown) (unknown) (no (unknown) (unknown) 2. Moderate (units (un known) date) atrophy and unknown) chronic microvascular ischemic changes. (unknown) (no (unknown) (unknown) 3. Comminuted (units ( unknown) date) nasal bone and unknown) possibly nondisplaced nasal septal fracture. (unknown) (no (unknown) (unknown) Accession Number: (units (unknown) date) [id number] unknown) (unknown) (no (unknown) (unknown) Accession Number: (units (unknown) date) [id number] unknown) (unknown) (no (unknown) (unknown) Accession Number: (units (unknown) date) [id number] unknown) (unknown) (no (unknown) (unknown) Age/Sex: 86 / F (units (unknown) date) Date of Service: unknown) (unknown) (no (unknown) (unknown) [place], [place] (units ( unknown) date) [id number] unknown) (unknown) (no (unknown) (unknown) Approved by: (units (u nknown) date) Aviva Rincon M.D. unknown) on 04/07/2022 at 13:26 (unknown) (no (unknown) (unknown) Approved by: (units (u nknown) date) Aviva Rincon M.D. unknown) on 04/07/2022 at 13:27 (unknown) (no (unknown) (unknown) Approved by: (units (u nknown) date) Aviva Rincon M.D. unknown) on 04/07/2022 at 13:29 (unknown) (no (unknown) (unknown) Bones and teeth: (units (unknown) date) Orbital goldstein are unknown) intact. Sinus goldstein show no fracture or (unknown) (no (unknown) (unknown) Bones: No (units (unkn own) date) fractures or unknown) dislocations. Visualized superior ribs are intact. (unknown) (no (unknown) (unknown) Brain: No (units (unkn own) date) intracranial unknown) bleeds or masses. There is cerebral volume loss for (unknown) (no (unknown) (unknown) COMPARISON: (units (un known) date) [facility], unknown) CT, CT CERVICAL SPINE WO CON, 04/07/2022, 12:58. (unknown) (no (unknown) (unknown) COMPARISON: (units (un known) date) [facility], unknown) CT, CT FACIAL BONES WO CON, 04/07/2022, 12:58. (unknown) (no (unknown) (unknown) CSF spaces: Basal (units (unknown) date) cisterns are unknown) patent. No extra-axial fluid collections. The (unknown) (no (unknown) (unknown) CT Scan Report (units (unknown) date) unknown) (unknown) (no (unknown) (unknown) : 1935 (units (unknown) date) Acct:[id number] unknown) (unknown) (no (unknown) (unknown) Dictated by: (units (u nknown) date) Aviva Rincon M.D. unknown) on 04/07/2022 at 13:24 (unknown) (no (unknown) (unknown) Dictated by: (units (u nknown) date) Aviva Rincon M.D. unknown) on 04/07/2022 at 13:26 (unknown) (no (unknown) (unknown) Dictated by: (units (u nknown) date) Aviva Rincon M.D. unknown) on 04/07/2022 at 13:28 (unknown) (no (unknown) (unknown) FINDINGS: (units (unkn own) date) unknown) (unknown) (no (unknown) (unknown) Hospital, CT, CT (units (unknown) date) FACIAL BONES WO unknown) CON, 04/07/2022, 12:58. (unknown) (no (unknown) (unknown) Hospital, CT, CT (units (unknown) date) HEAD/BRAIN WO CON, unknown) 04/07/2022, 12:58. (unknown) (no (unknown) (unknown) IMPRESSION: No (units (unknown) date) cervical fracture. unknown) (unknown) (no (unknown) (unknown) IMPRESSION: (units (un known) date) unknown) (unknown) (no (unknown) (unknown) INDICATIONS: fall (units (unknown) date) face first on unknown) blood thinners (unknown) (no (unknown) (unknown) Image quality: (units (unknown) date) Excellent. unknown) (unknown) (no (unknown) (unknown) [facility] (units (unknown) date) unknown) (unknown) (no (unknown) (unknown) [place] (units (unkno wn) date) unknown) (unknown) (no (unknown) (unknown) Loc: ED (units (unkno wn) date) unknown) (unknown) (no (unknown) (unknown) Multilevel (units (unk nown) date) unknown) (unknown) (no (unknown) (unknown) Nasal bone with (units (unknown) date) possible nasal unknown) septal fracture. (unknown) (no (unknown) (unknown) Noncontrast 2.5 (units (unknown) date) mm thick axial unknown) images acquired from the mandible through the (unknown) (no (unknown) (unknown) Noncontrast 3 mm (units (unknown) date) thick sections unknown) acquired from the skull base to the T4 level. (unknown) (no (unknown) (unknown) Noncontrast 4.5 (units (unknown) date) mm thick angled unknown) axial sections acquired from the foramen magnum (unknown) (no (unknown) (unknown) Ordering (units (unkno wn) date) Provider: unknown) Desmond Guallpa P.A-C (unknown) (no (unknown) (unknown) PROCEDURE: CT (units ( unknown) date) CERVICAL SPINE WO unknown) CON (unknown) (no (unknown) (unknown) PROCEDURE: CT (units ( unknown) date) FACIAL BONES WO unknown) CON (unknown) (no (unknown) (unknown) PROCEDURE: CT (units ( unknown) date) HEAD/BRAIN WO CON unknown) (unknown) (no (unknown) (unknown) Patient: (units (unkno wn) date) Dana Pillai M unknown) MR#: [id number] (unknown) (no (unknown) (unknown) Procedure: CT (units ( unknown) date) cervical spine wo unknown) con (unknown) (no (unknown) (unknown) Procedure: CT (units ( unknown) date) facial bones wo unknown) con (unknown) (no (unknown) (unknown) Procedure: CT (units ( unknown) date) head/brain wo con unknown) (unknown) (no (unknown) (unknown) Sagittal (units (unkno wn) date) unknown) (unknown) (no (unknown) (unknown) Signed (units (unkno wn) date) unknown) (unknown) (no (unknown) (unknown) Sinuses: (units (unkno wn) date) Scattered fluid is unknown) present within the ethmoid air cells. (unknown) (no (unknown) (unknown) Sinuses: (units (unkno wn) date) Visualized sinuses unknown) demonstrate ethmoid mucosal thickening. (unknown) (no (unknown) (unknown) Skull and face: (units (unknown) date) Calvarium appears unknown) intact. There is comminuted nasal bone (unknown) (no (unknown) (unknown) Soft tissues: No (units (unknown) date) edema, masses, or unknown) fluid collections. No enlarged lymph (unknown) (no (unknown) (unknown) Soft tissues: (units ( unknown) date) Prevertebral soft unknown) tissues are normal in thickness. No (unknown) (no (unknown) (unknown) TECHNIQUE: (units (unk nown) date) unknown) (unknown) (no (unknown) (unknown) There is a slight (units (unknown) date) offset appearance unknown) of the nasal septum. Overlying soft tissue (unknown) (no (unknown) (unknown) There is (units (unkno wn) date) comminuted nasal unknown) bone fracture with overlying soft tissue edema. (unknown) (no (unknown) (unknown) There is (units (unkno wn) date) unknown) (unknown) (no (unknown) (unknown) Vascular: (units (unkn own) date) Visualized unknown) vascular structures appear normal in the absence of (unknown) (no (unknown) (unknown) Visualized (units (unk nown) date) portions of the unknown) skull base and auditory canals are intact. (unknown) (no (unknown) (unknown) according to (units (u nknown) date) unknown) (unknown) (no (unknown) (unknown) age, with (units (unkn own) date) unknown) (unknown) (no (unknown) (unknown) and coronal (units (un known) date) reformats were unknown) then constructed. For radiation dose reduction, the (unknown) (no (unknown) (unknown) artery (units (unkno wn) date) atherosclerosis. unknown) (unknown) (no (unknown) (unknown) carotid (units (unkno wn) date) unknown) (unknown) (no (unknown) (unknown) contrast. Bony (units (unknown) date) unknown) (unknown) (no (unknown) (unknown) deep white (units (unk nown) date) unknown) (unknown) (no (unknown) (unknown) deformity. (units (unk nown) date) unknown) (unknown) (no (unknown) (unknown) degenerative (units (u nknown) date) changes are unknown) present. (unknown) (no (unknown) (unknown) edema is (units (unkno wn) date) unknown) (unknown) (no (unknown) (unknown) fluid is noted (units (unknown) date) unknown) (unknown) (no (unknown) (unknown) following was (units ( unknown) date) used: automated unknown) exposure control, adjustment of mA and/or kV (unknown) (no (unknown) (unknown) following (units (unkn own) date) unknown) (unknown) (no (unknown) (unknown) fractures or (units (u nknown) date) subluxation. unknown) Zygomatic arches are intact. Pterygoid plates are (unknown) (no (unknown) (unknown) fractures. (units (unk nown) date) unknown) (unknown) (no (unknown) (unknown) frontal (units (unkno wn) date) unknown) (unknown) (no (unknown) (unknown) hematomas. No (units ( unknown) date) apical unknown) pneumothoraces. Mild fluid is noted in the posterior (unknown) (no (unknown) (unknown) in the posterior (units (unknown) date) oropharynx. unknown) Visualized portions of the mandible demonstrate (unknown) (no (unknown) (unknown) intact. (units (unkno wn) date) unknown) (unknown) (no (unknown) (unknown) matter chronic (units (unknown) date) small vessel unknown) ischemic changes. There is intracranial internal (unknown) (no (unknown) (unknown) no (units (unkno wn) date) unknown) (unknown) (no (unknown) (unknown) nodes. No soft (units (unknown) date) unknown) (unknown) (no (unknown) (unknown) oropharynx. (units (un known) date) unknown) (unknown) (no (unknown) (unknown) paravertebral (units ( unknown) date) unknown) (unknown) (no (unknown) (unknown) patient size. (units ( unknown) date) unknown) (unknown) (no (unknown) (unknown) patient (units (unkno wn) date) unknown) (unknown) (no (unknown) (unknown) present. Mild (units ( unknown) date) fluid is noted in unknown) the posterior oropharynx. (unknown) (no (unknown) (unknown) resultant (units (unkn own) date) ventricular and unknown) sulcal prominence. There are periventricular and (unknown) (no (unknown) (unknown) sinuses, with (units ( unknown) date) coronal and unknown) sagittal reformatting. For radiation dose reduction, (unknown) (no (unknown) (unknown) size. (units (unkno wn) date) unknown) (unknown) (no (unknown) (unknown) slight offset (units ( unknown) date) appearance of the unknown) nasal septum suggestive of fracture. Mild (unknown) (no (unknown) (unknown) the (units (unkno wn) date) unknown) (unknown) (no (unknown) (unknown) tissue (units (unkno wn) date) lacerations or unknown) debris. (unknown) (no (unknown) (unknown) to the (units (unkno wn) date) unknown) (unknown) (no (unknown) (unknown) vascular foramina (units (unknown) date) and canals are unknown) intact. (unknown) (no (unknown) (unknown) ventricles are (units (unknown) date) symmetric in size unknown) and shape. (unknown) (no (unknown) (unknown) vertex, with (units (u nknown) date) coronal and unknown) sagittal reformats. For radiation dose reduction, the (unknown) (no (unknown) (unknown) was used: (units (unkn own) date) automated exposure unknown) control, adjustment of mA and/or kV according to Result panel 16 (unknown) (no (unknown) (unknown) (no value) (units (unk nown) date) unknown) (unknown) (no (unknown) (unknown) (DME) Parking (units ( unknown) date) Permit... unknown) (unknown) (no (unknown) (unknown) (Voltaren) #100 (units (unknown) date) grams unknown) (unknown) (no (unknown) (unknown) 04/07/22 12:51 (units (unknown) date) unknown) (unknown) (no (unknown) (unknown) 04/07/22 (units (unkno wn) date) unknown) (unknown) (no (unknown) (unknown) 1 PO every other (units (unknown) date) day unknown) (unknown) (no (unknown) (unknown) 1,000 unit PO (units ( unknown) date) DAILY unknown) (unknown) (no (unknown) (unknown) 1. No acute (units (un known) date) intracranial unknown) process. (unknown) (no (unknown) (unknown) 100 mg PO DAILY (units (unknown) date) Qty: 90 1RF unknown) (unknown) (no (unknown) (unknown) 12:53 04/07/22 (units (unknown) date) unknown) (unknown) (no (unknown) (unknown) 12:54 04/07/22 (units (unknown) date) unknown) (unknown) (no (unknown) (unknown) 12:54 (units (unkno wn) date) unknown) (unknown) (no (unknown) (unknown) 12:55 04/07/22 (units (unknown) date) unknown) (unknown) (no (unknown) (unknown) 12:55 (units (unkno wn) date) unknown) (unknown) (no (unknown) (unknown) 2 g TOP ONCE Qty: (units (unknown) date) 100 5RF unknown) (unknown) (no (unknown) (unknown) 2 mg PO DAILY (units ( unknown) date) Qty: 90 3RF unknown) (unknown) (no (unknown) (unknown) 2. Moderate (units (un known) date) atrophy and unknown) chronic microvascular ischemic changes. (unknown) (no (unknown) (unknown) 20 mg PO HS Qty: (units (unknown) date) 90 1RF unknown) (unknown) (no (unknown) (unknown) 25 mg PO .COMPLEX (units (unknown) date) unknown) (unknown) (no (unknown) (unknown) 3. Comminuted (units ( unknown) date) nasal bone and unknown) possibly nondisplaced nasal septal fracture.? (unknown) (no (unknown) (unknown) [id number] (units (unkno wn) date) unknown) (unknown) (no (unknown) (unknown) 5 mg PO BID Qty: (units (unknown) date) 180 1RF unknown) (unknown) (no (unknown) (unknown) 5 mg PO DAILY (units ( unknown) date) unknown) (unknown) (no (unknown) (unknown) 50 mg PO BID Qty: (units (unknown) date) 180 3RF unknown) (unknown) (no (unknown) (unknown) ? (units (unkno wn) date) unknown) (unknown) (no (unknown) (unknown) Age/Sex: 86 / F (units (unknown) date) unknown) (unknown) (no (unknown) (unknown) Allergies (units (unkn own) date) unknown) (unknown) (no (unknown) (unknown) Allergy/AdvReac (units (unknown) date) Type Severity unknown) Reaction Status Date / Time (unknown) (no (unknown) (unknown) Anemia (units (unkno wn) date) unknown) (unknown) (no (unknown) (unknown) Approved by: (units (u nknown) date) Aviva Rincon M.D. unknown) on 04/07/2022 at 13:26 ? (unknown) (no (unknown) (unknown) Approved by: (units (u nknown) date) Aviva Rincon M.D. unknown) on 04/07/2022 at 13:27 ? (unknown) (no (unknown) (unknown) Approved by: (units (u nknown) date) Aviva Rincon M.D. unknown) on 04/07/2022 at 13:29 ? (unknown) (no (unknown) (unknown) Blood Pressure (units (unknown) date) 175/79 H unknown) (unknown) (no (unknown) (unknown) Blood Pressure (units (unknown) date) 179/84 H unknown) (unknown) (no (unknown) (unknown) Bones and teeth:? (units (unknown) date) Orbital goldstein are unknown) intact.? Sinus goldstein show no fracture or (unknown) (no (unknown) (unknown) Bones:? No (units (unk nown) date) fractures or unknown) dislocations.? Visualized superior ribs are intact.? (unknown) (no (unknown) (unknown) Brain:? No (units (unk nown) date) intracranial unknown) bleeds or masses.? There is cerebral volume loss for (unknown) (no (unknown) (unknown) Brother Age: 86 (units (unknown) date) Heart disease unknown) (unknown) (no (unknown) (unknown) COMPARISON:? (units (u nknown) date) [facility], unknown) CT, CT CERVICAL SPINE WO [facility], 04/07/2022, 12:58.? (unknown) (no (unknown) (unknown) COMPARISON:? (units (u nknown) date) [facility], unknown) CT, CT FACIAL BONES WO [facility], 04/07/2022, 12:58.? (unknown) (no (unknown) (unknown) CSF spaces:? (units (u nknown) date) Basal cisterns are unknown) patent.? No extra-axial fluid collections.? The (unknown) (no (unknown) (unknown) CT Cervical (units (un known) date) Spine: unknown) (unknown) (no (unknown) (unknown) CT Face: (units (unkno wn) date) unknown) (unknown) (no (unknown) (unknown) CT cervical spine (units (unknown) date) wo con Stat unknown) (unknown) (no (unknown) (unknown) CT facial bones (units (unknown) date) wo con Stat unknown) (unknown) (no (unknown) (unknown) CT head/brain wo (units (unknown) date) con Stat unknown) (unknown) (no (unknown) (unknown) CT scan - head: (units (unknown) date) unknown) (unknown) (no (unknown) (unknown) Cataracts, (units (unk nown) date) bilateral unknown) (Unknown) (unknown) (no (unknown) (unknown) Chief Complaint: (units (unknown) date) Fall unknown) (unknown) (no (unknown) (unknown) Course (units (unkno wn) date) unknown) (unknown) (no (unknown) (unknown) : 1935 (units (unknown) date) Acct:[id number] unknown) (unknown) (no (unknown) (unknown) Date of Service: (units (unknown) date) 04/07/22 unknown) (unknown) (no (unknown) (unknown) Departure (units (unkn own) date) unknown) (unknown) (no (unknown) (unknown) Dictated by: (units (u nknown) date) Aviva Rincon M.D. unknown) on 04/07/2022 at 13:24 ? ? (unknown) (no (unknown) (unknown) Dictated by: (units (u nknown) date) Aviva Rincon M.D. unknown) on 04/07/2022 at 13:26 ? ? (unknown) (no (unknown) (unknown) Dictated by: (units (u nknown) date) Aviva Rincon M.D. unknown) on 04/07/2022 at 13:28 ? ? 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 (units (unk nown) date) unknown) (unknown) (no (unknown) (unknown) Family History (units (unknown) date) (Reviewed 03/15/22 unknown) @ 11:18 by Natan Waldron DO) (unknown) (no (unknown) (unknown) Father (units (unknown) date) No problems noted. unknown) (unknown) (no (unknown) (unknown) GERD (units (unkno wn) date) (gastroesophageal unknown) reflux disease) (Unknown) (unknown) (no (unknown) (unknown) General (units (unkno wn) date) unknown) (unknown) (no (unknown) (unknown) HPI - Fall (units (unk nown) date) unknown) (unknown) (no (unknown) (unknown) Home Medications (units (unknown) date) unknown) (unknown) (no (unknown) (unknown) Hospital, CT, CT (units (unknown) date) FACIAL BONES WO unknown) CON, 04/07/2022, 12:58. (unknown) (no (unknown) (unknown) Hospital, CT, CT (units (unknown) date) HEAD/BRAIN WO CON, unknown) 04/07/2022, 12:58. (unknown) (no (unknown) (unknown) Hx of cataract (units (unknown) date) surgery (-2014) unknown) (unknown) (no (unknown) (unknown) Hyperlipemia (units (u nknown) date) (Unknown) unknown) (unknown) (no (unknown) (unknown) Hypertension (units (u nknown) date) (Unknown) unknown) (unknown) (no (unknown) (unknown) I find this (units (un known) date) patient to be unknown) medically disabled and qualified for disabled (unknown) (no (unknown) (unknown) IMPRESSION:? No (units (unknown) date) cervical fracture. unknown) (unknown) (no (unknown) (unknown) IMPRESSION:? (units (u nknown) date) unknown) (unknown) (no (unknown) (unknown) INDICATIONS:? (units ( unknown) date) fall face first on unknown) blood thinners (unknown) (no (unknown) (unknown) Image quality:? (units (unknown) date) Excellent.? unknown) (unknown) (no (unknown) (unknown) Imaging Data (units (u nknown) date) unknown) (unknown) (no (unknown) (unknown) Initial Vital (units ( unknown) date) Signs unknown) (unknown) (no (unknown) (unknown) Initial Vital (units ( unknown) date) Signs: unknown) (unknown) (no (unknown) (unknown) [facility] (units (unknown) date) [address] [place] [address] unknown) [place] [address] (unknown) (no (unknown) (unknown) Island (units (unkno wn) date) unknown) (unknown) (no (unknown) (unknown) Ketorolac (units (unkn own) date) Tromethamine unknown) (Ketorolac 30 Mg/Ml Vial) 30 mg IV NOW ONE (unknown) (no (unknown) (unknown) Knee pain (units (unkn own) date) unknown) (unknown) (no (unknown) (unknown) Label Comments: (units (unknown) date) unknown) (unknown) (no (unknown) (unknown) Left knee pain (units (unknown) date) unknown) (unknown) (no (unknown) (unknown) Low back pain (units ( unknown) date) unknown) (unknown) (no (unknown) (unknown) MDM - Fall (units (unk nown) date) unknown) (unknown) (no (unknown) (unknown) Medical History (units (unknown) date) (Reviewed 03/15/22 unknown) @ 11:18 by Natan Waldron DO) (unknown) (no (unknown) (unknown) Medication (units (unk nown) date) Instructions unknown) Recorded Confirmed (unknown) (no (unknown) (unknown) Medication (units (unk nown) date) Instructions unknown) Recorded (unknown) (no (unknown) (unknown) Mitral (units (unkno wn) date) regurgitation unknown) (Unknown) (unknown) (no (unknown) (unknown) Mode of arrival: (units (unknown) date) EMS unknown) (unknown) (no (unknown) (unknown) Mother (units (unknown) date) No problems noted. unknown) (unknown) (no (unknown) (unknown) Multilevel (units (unk nown) date) unknown) (unknown) (no (unknown) (unknown) Nasal bone with (units (unknown) date) possible nasal unknown) septal fracture.? (unknown) (no (unknown) (unknown) No Action (units (unkn own) date) unknown) (unknown) (no (unknown) (unknown) No Known Drug (units ( unknown) date) Allergies Allergy unknown) Verified 03/15/22 10:39 (unknown) (no (unknown) (unknown) Noncontrast 2.5 (units (unknown) date) mm thick axial unknown) images acquired from the mandible through the (unknown) (no (unknown) (unknown) Noncontrast 3 mm (units (unknown) date) thick sections unknown) acquired from the skull base to the T4 level.? 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 CT (units (unknown) date) CERVICAL SPINE WO unknown) CON (unknown) (no (unknown) (unknown) PROCEDURE:? CT (units (unknown) date) FACIAL BONES WO unknown) CON (unknown) (no (unknown) (unknown) PROCEDURE:? CT (units (unknown) date) HEAD/BRAIN WO CON unknown) (unknown) (no (unknown) (unknown) Parking Permit... (units (unknown) date) #1 ea 02/08/22 unknown) (unknown) (no (unknown) (unknown) Patient History (units (unknown) date) unknown) (unknown) (no (unknown) (unknown) Patient: (units (unkno wn) date) Dana Pillai M unknown) MR#: [id number] (unknown) (no (unknown) (unknown) Natan Waldron, (units (unknown) date) DO [Primary Care unknown) Provider] (unknown) (no (unknown) (unknown) Prescriptions: (units (unknown) date) unknown) (unknown) (no (unknown) (unknown) Previous Rx's (units ( unknown) date) unknown) (unknown) (no (unknown) (unknown) Pulse Oximetry 97 (units (unknown) date) unknown) (unknown) (no (unknown) (unknown) Pulse Oximetry 98 (units (unknown) date) unknown) (unknown) (no (unknown) (unknown) Pulse Rate 67 (units ( unknown) date) unknown) (unknown) (no (unknown) (unknown) Pulse Rate 96 H (units (unknown) date) 04/07/22 12:53 unknown) (unknown) (no (unknown) (unknown) Pulse Rate 96 H (units (unknown) date) 73 unknown) (unknown) (no (unknown) (unknown) Qty: 0 (units (unkno wn) date) unknown) (unknown) (no (unknown) (unknown) Radiologist's (units ( unknown) date) Impression: unknown) (unknown) (no (unknown) (unknown) Referrals: (units (unk nown) date) unknown) (unknown) (no (unknown) (unknown) Related Data (units (u nknown) date) unknown) (unknown) (no (unknown) (unknown) Rx Instructions: (units (unknown) date) unknown) (unknown) (no (unknown) (unknown) Sagittal (units (unkno wn) date) unknown) (unknown) (no (unknown) (unknown) See Rx (units (unkno wn) date) Instructions unknown) .Route .MEDSUPPLY Qty: 1 0RF (unknown) (no (unknown) (unknown) Signed By: (units (unk nown) date) unknown) (unknown) (no (unknown) (unknown) Sinuses:? (units (unkn own) date) Scattered fluid is unknown) present within the ethmoid air cells. (unknown) (no (unknown) (unknown) Sinuses:? (units (unkn own) date) Visualized sinuses unknown) demonstrate ethmoid mucosal thickening. (unknown) (no (unknown) (unknown) Skull and face:? (units (unknown) date) Calvarium appears unknown) intact.? There is comminuted nasal bone (unknown) (no (unknown) (unknown) Smoking Status: (units (unknown) date) Never smoker unknown) (unknown) (no (unknown) (unknown) Social History (units (unknown) date) unknown) (unknown) (no (unknown) (unknown) Soft tissues:? No (units (unknown) date) edema, masses, or unknown) fluid collections.? No enlarged lymph (unknown) (no (unknown) (unknown) Soft tissues:? (units (unknown) date) Prevertebral soft unknown) tissues are normal in thickness.? No (unknown) (no (unknown) (unknown) Source: EMS (units (un known) date) unknown) (unknown) (no (unknown) (unknown) Stated Complaint: (units (unknown) date) [facility] (unknown) (no (unknown) (unknown) Status post right (units (unknown) date) breast lumpectomy unknown) () (unknown) (no (unknown) (unknown) Stop: 04/07/22 (units (unknown) date) 13:41 unknown) (unknown) (no (unknown) (unknown) Substance Use (units ( unknown) date) Type: does not use unknown) (unknown) (no (unknown) (unknown) Superficial (units (un known) date) laceration unknown) (unknown) (no (unknown) (unknown) Surgical History (units (unknown) date) (Reviewed 03/15/22 unknown) @ 11:18 by Natan Waldron DO) (unknown) (no (unknown) (unknown) TECHNIQUE:? (units (un known) date) unknown) (unknown) (no (unknown) (unknown) Temperature 97.6 (units (unknown) date) F unknown) (unknown) (no (unknown) (unknown) Temperature (units (un known) date) unknown) (unknown) (no (unknown) (unknown) There is a slight (units (unknown) date) offset appearance unknown) of the nasal septum.? Overlying soft tissue (unknown) (no (unknown) (unknown) There is (units (unkno wn) date) comminuted nasal unknown) bone fracture with overlying soft tissue edema.? There (unknown) (no (unknown) (unknown) Urinary (units (unkno wn) date) incontinence unknown) (Unknown) (unknown) (no (unknown) (unknown) Vascular:? (units (unk nown) date) Visualized unknown) vascular structures appear normal in the absence of (unknown) (no (unknown) (unknown) Visualized (units (unk nown) date) portions of the unknown) skull base and auditory canals are intact.? (unknown) (no (unknown) (unknown) Vital Signs - 8 (units (unknown) date) hr unknown) (unknown) (no (unknown) (unknown) Vital Signs (units (un known) date) unknown) (unknown) (no (unknown) (unknown) Vital signs: (units (u nknown) date) unknown) (unknown) (no (unknown) (unknown) Well adult exam (units (unknown) date) unknown) (unknown) (no (unknown) (unknown) [GARLIC] ##0 (units (u nknown) date) 12/26/16 03/15/22 unknown) (unknown) (no (unknown) (unknown) [GARLIC] (units (unkno wn) date) unknown) (unknown) (no (unknown) (unknown) according to (units (u nknown) date) unknown) (unknown) (no (unknown) (unknown) age, with (units (unkn own) date) unknown) (unknown) (no (unknown) (unknown) alcohol intake (units (unknown) date) frequency: 0-2 unknown) drinks per day (unknown) (no (unknown) (unknown) alcohol intake: (units (unknown) date) current unknown) (unknown) (no (unknown) (unknown) amlodipine 5 mg (units (unknown) date) tablet 5 mg PO unknown) DAILY 02/17/18 03/15/22 (unknown) (no (unknown) (unknown) amlodipine 5 mg (units (unknown) date) tablet unknown) (unknown) (no (unknown) (unknown) and coronal (units (un known) date) reformats were unknown) then constructed.? For radiation dose reduction, the (unknown) (no (unknown) (unknown) apixaban 5 mg (units ( unknown) date) tablet (Eliquis) 5 unknown) mg PO BID #180 tabs 10/12/20 (unknown) (no (unknown) (unknown) apply to single (units (unknown) date) elbow, wrist or unknown) hand; for hand includes palm/fingers/back of (unknown) (no (unknown) (unknown) artery (units (unkno wn) date) atherosclerosis.? unknown) (unknown) (no (unknown) (unknown) carotid (units (unkno wn) date) unknown) (unknown) (no (unknown) (unknown) cholecalciferol (units (unknown) date) (vitamin D3) 1,000 unknown) unit capsule (unknown) (no (unknown) (unknown) cholecalciferol (units (unknown) date) (vitamin D3) 25 unknown) 1,000 unit PO DAILY 02/17/18 03/15/22 (unknown) (no (unknown) (unknown) contrast.? Bony (units (unknown) date) unknown) (unknown) (no (unknown) (unknown) dapsone 25 mg (units ( unknown) date) tablet 25 mg PO unknown) .COMPLEX 08/20/18 03/15/22 (unknown) (no (unknown) (unknown) dapsone 25 mg (units ( unknown) date) tablet unknown) (unknown) (no (unknown) (unknown) deformity.? (units (un known) date) unknown) (unknown) (no (unknown) (unknown) degenerative (units (u nknown) date) changes are unknown) present. (unknown) (no (unknown) (unknown) diclofenac sodium (units (unknown) date) 1 % topical gel 2 unknown) g topical ONCE arthritis pain 10/12/20 (unknown) (no (unknown) (unknown) diclofenac sodium (units (unknown) date) [Voltaren] 1 % gel unknown) (unknown) (no (unknown) (unknown) edema is (units (unkno wn) date) unknown) (unknown) (no (unknown) (unknown) following was (units ( unknown) date) used:? automated unknown) exposure control, adjustment of mA and/or kV (unknown) (no (unknown) (unknown) following (units (unkn own) date) unknown) (unknown) (no (unknown) (unknown) for Individuals. (units (unknown) date) unknown) (unknown) (no (unknown) (unknown) fractures or (units (u nknown) date) subluxation.? unknown) Zygomatic arches are intact.? Pterygoid plates are (unknown) (no (unknown) (unknown) fractures.? (units (un known) date) unknown) (unknown) (no (unknown) (unknown) frontal (units (unkno wn) date) unknown) (unknown) (no (unknown) (unknown) hand (units (unkno wn) date) unknown) (unknown) (no (unknown) (unknown) hematomas.? No (units (unknown) date) apical unknown) pneumothoraces.? Mild fluid is noted in the posterior (unknown) (no (unknown) (unknown) in the posterior (units (unknown) date) oropharynx.? unknown) Visualized portions of the mandible demonstrate no (unknown) (no (unknown) (unknown) intact.? (units (unkno wn) date) unknown) (unknown) (no (unknown) (unknown) is noted (units (unkno wn) date) unknown) (unknown) (no (unknown) (unknown) is (units (unkno wn) date) unknown) (unknown) (no (unknown) (unknown) losartan 100 mg (units (unknown) date) tablet 100 mg PO unknown) DAILY #90 tabs 08/20/18 (unknown) (no (unknown) (unknown) losartan 100 mg (units (unknown) date) tablet unknown) (unknown) (no (unknown) (unknown) matter chronic (units (unknown) date) small vessel unknown) ischemic changes.? There is intracranial internal (unknown) (no (unknown) (unknown) mcg (1,000 unit) (units (unknown) date) capsule unknown) (unknown) (no (unknown) (unknown) metoprolol (units (unk nown) date) tartrate 50 MG unknown) tablet (unknown) (no (unknown) (unknown) metoprolol (units (unk nown) date) tartrate 50 mg unknown) tablet 50 mg PO BID #180 tabs 06/10/17 (unknown) (no (unknown) (unknown) nodes.? No soft (units (unknown) date) unknown) (unknown) (no (unknown) (unknown) oropharynx. (units (un known) date) unknown) (unknown) (no (unknown) (unknown) paravertebral (units ( unknown) date) unknown) (unknown) (no (unknown) (unknown) parking as (units (unkn own) date) indicated and unknown) signed on the Accompanying Disabled Parking Application (unknown) (no (unknown) (unknown) patient size.? (units (unknown) date) unknown) (unknown) (no (unknown) (unknown) patient (units (unkno wn) date) unknown) (unknown) (no (unknown) (unknown) present.? Mild (units (unknown) date) fluid is noted in unknown) the posterior oropharynx. (unknown) (no (unknown) (unknown) release 24 hr (units ( unknown) date) unknown) (unknown) (no (unknown) (unknown) resultant (units (unkno wn) date) ventricular and unknown) sulcal prominence.? There are periventricular and deep (unknown) (no (unknown) (unknown) simvastatin 20 mg (units (unknown) date) tablet 20 mg PO HS unknown) #90 tabs 11/16/21 (unknown) (no (unknown) (unknown) simvastatin 20 mg (units (unknown) date) tablet unknown) (unknown) (no (unknown) (unknown) sinuses, with (units ( unknown) date) coronal and unknown) sagittal reformatting.? For radiation dose reduction, (unknown) (no (unknown) (unknown) size.? (units (unkno wn) date) unknown) (unknown) (no (unknown) (unknown) slight offset (units (u nknown) date) appearance of the unknown) nasal septum suggestive of fracture.? Mild fluid (unknown) (no (unknown) (unknown) substance use (units ( unknown) date) type: does not use unknown) (unknown) (no (unknown) (unknown) the (units (unkno wn) date) unknown) (unknown) (no (unknown) (unknown) tissue (units (unkno wn) date) lacerations or unknown) debris.? (unknown) (no (unknown) (unknown) to the (units (unkno wn) date) unknown) (unknown) (no (unknown) (unknown) tolterodine 2 mg (units (unknown) date) capsule,extended 2 unknown) mg PO DAILY #90 caps 09/11/21 (unknown) (no (unknown) (unknown) tolterodine 2 mg (units (unknown) date) capsule,extended unknown) release 24hr (unknown) (no (unknown) (unknown) vascular foramina (units (unknown) date) and canals are unknown) intact.? (unknown) (no (unknown) (unknown) ventricles are (units (unknown) date) symmetric in size unknown) and shape.? (unknown) (no (unknown) (unknown) vertex, with (units (u nknown) date) coronal and unknown) sagittal reformats.? For radiation dose reduction, the (unknown) (no (unknown) (unknown) was used:? (units (unk nown) date) automated exposure unknown) control, adjustment of mA and/or kV according to (unknown) (no (unknown) (unknown) white (units (unkno wn) date) unknown) Result panel 17 (unknown) (no (unknown) (unknown) (no value) (units (unk nown) date) unknown) (unknown) (no (unknown) (unknown) [id number] (units (unkno wn) date) unknown) (unknown) (no (unknown) (unknown) 04/07/22 (units (unkno wn) date) unknown) (unknown) (no (unknown) (unknown) [address] [place] [address] (units (unknown) date) unknown) (unknown) (no (unknown) (unknown) Accession Number: (units (unknown) date) [id number] unknown) (unknown) (no (unknown) (unknown) Age/Sex: 86 / F (units (unknown) date) Date of Service: unknown) (unknown) (no (unknown) (unknown) LEÓN Nixon (units ( unknown) date) [id number] unknown) (unknown) (no (unknown) (unknown) Approved by: (units (u nknown) date) Chuck Montgomery unknown) Farzaneh Gan on 04/07/2022 at 13:49 (unknown) (no (unknown) (unknown) Bones and chest (units (unknown) date) wall: No unknown) suspicious bony abnormalities. Soft tissues appear (unknown) (no (unknown) (unknown) COMPARISON: (units (un known) date) [facility], unknown) CR, XR CHEST 2V, 02/17/2018, 13:24. (unknown) (no (unknown) (unknown) : 1935 (units (unknown) date) Acct:[id number] unknown) (unknown) (no (unknown) (unknown) Dictated by: (units (u nknown) date) Chuck Montgomery unknown) Farzaneh Gan on 04/07/2022 at 13:47 (unknown) (no (unknown) (unknown) FINDINGS: (units (unkn own) date) unknown) (unknown) (no (unknown) (unknown) IMPRESSION: No (units (unknown) date) acute unknown) cardiopulmonary findings. (unknown) (no (unknown) (unknown) INDICATIONS: Fall (units (unknown) date) unknown) (unknown) (no (unknown) (unknown) [facility] (units (unknown) date) unknown) (unknown) (no (unknown) (unknown) Loc: ED (units (unkno wn) date) unknown) (unknown) (no (unknown) (unknown) Lungs and pleura: (units (unknown) date) Lungs are unknown) hyperinflated with flattening of diaphragms. No (unknown) (no (unknown) (unknown) Mediastinum: (units (u nknown) date) Cardiomegaly, unknown) unchanged. Tortuous aorta. Heart size is normal. (unknown) (no (unknown) (unknown) Ordering (units (unkno wn) date) Provider: unknown) Desmond Guallpa P.A-C (unknown) (no (unknown) (unknown) PROCEDURE: XR (units ( unknown) date) CHEST 2V unknown) (unknown) (no (unknown) (unknown) Patient: (units (unkno wn) date) Dana Pillai M unknown) MR#: [id number] (unknown) (no (unknown) (unknown) Procedure: XR (units ( unknown) date) chest 2V unknown) (unknown) (no (unknown) (unknown) Signed (units (unkno wn) date) unknown) (unknown) (no (unknown) (unknown) Surgical changes (units (unknown) date) and devices: None. unknown) (unknown) (no (unknown) (unknown) TECHNIQUE: 2 (units (u nknown) date) views of the chest unknown) were acquired. (unknown) (no (unknown) (unknown) XRay Report (units (un known) date) unknown) (unknown) (no (unknown) (unknown) concerning (units (unk nown) date) unknown) (unknown) (no (unknown) (unknown) consolidation. (units (unknown) date) Persistent right unknown) pulmonary granuloma. No pleural effusion. No (unknown) (no (unknown) (unknown) pneumothorax. (units ( unknown) date) unknown) (unknown) (no (unknown) (unknown) unremarkable. (units ( unknown) date) unknown) Result panel 18 (unknown) (no (unknown) (unknown) (no value) (units (unk nown) date) unknown) (unknown) (no (unknown) (unknown) (DME) Parking (units ( unknown) date) Permit... unknown) (unknown) (no (unknown) (unknown) (Voltaren) #100 (units (unknown) date) grams unknown) (unknown) (no (unknown) (unknown) 04/07/22 12:51 (units (unknown) date) unknown) (unknown) (no (unknown) (unknown) 04/07/22 (units (unkno wn) date) unknown) (unknown) (no (unknown) (unknown) 1 PO every other (units (unknown) date) day unknown) (unknown) (no (unknown) (unknown) 1,000 unit PO (units ( unknown) date) DAILY unknown) (unknown) (no (unknown) (unknown) 1. No acute (units (un known) date) intracranial unknown) process. (unknown) (no (unknown) (unknown) 100 mg PO DAILY (units (unknown) date) Qty: 90 1RF unknown) (unknown) (no (unknown) (unknown) 12:53 04/07/22 (units (unknown) date) unknown) (unknown) (no (unknown) (unknown) 12:54 04/07/22 (units (unknown) date) unknown) (unknown) (no (unknown) (unknown) 12:54 (units (unkno wn) date) unknown) (unknown) (no (unknown) (unknown) 12:55 04/07/22 (units (unknown) date) unknown) (unknown) (no (unknown) (unknown) 12:55 (units (unkno wn) date) unknown) (unknown) (no (unknown) (unknown) 1:00 a.m. while (units (unknown) date) she was walking unknown) into her she had. Fall was because she missed (unknown) (no (unknown) (unknown) 2 g TOP ONCE Qty: (units (unknown) date) 100 5RF unknown) (unknown) (no (unknown) (unknown) 2 mg PO DAILY (units ( unknown) date) Qty: 90 3RF unknown) (unknown) (no (unknown) (unknown) 2. Moderate (units (un known) date) atrophy and unknown) chronic microvascular ischemic changes. (unknown) (no (unknown) (unknown) 20 mg PO HS Qty: (units (unknown) date) 90 1RF unknown) (unknown) (no (unknown) (unknown) 25 mg PO .COMPLEX (units (unknown) date) unknown) (unknown) (no (unknown) (unknown) 3. Comminuted (units ( unknown) date) nasal bone and unknown) possibly nondisplaced nasal septal fracture.? (unknown) (no (unknown) (unknown) [id number] (units (unkno wn) date) unknown) (unknown) (no (unknown) (unknown) 5 mg PO BID Qty: (units (unknown) date) 180 1RF unknown) (unknown) (no (unknown) (unknown) 5 mg PO DAILY (units ( unknown) date) unknown) (unknown) (no (unknown) (unknown) 50 mg PO BID Qty: (units (unknown) date) 180 3RF unknown) (unknown) (no (unknown) (unknown) ? (units (unkno wn) date) unknown) (unknown) (no (unknown) (unknown) Age/Sex: 86 / F (units (unknown) date) unknown) (unknown) (no (unknown) (unknown) Allergies (units (unkn own) date) unknown) (unknown) (no (unknown) (unknown) Allergy/AdvReac (units (unknown) date) Type Severity unknown) Reaction Status Date / Time (unknown) (no (unknown) (unknown) Also denies (units (un known) date) double vision or unknown) any other neurological concerns related to this (unknown) (no (unknown) (unknown) Anemia (units (unkno wn) date) unknown) (unknown) (no (unknown) (unknown) Approved by: (units (u nknown) date) Aviva Rincon M.D. unknown) on 04/07/2022 at 13:26 ? (unknown) (no (unknown) (unknown) Approved by: (units (u nknown) date) Aviva Rincon M.D. unknown) on 04/07/2022 at 13:27 ? (unknown) (no (unknown) (unknown) Approved by: (units (u nknown) date) Aviva Rincon M.D. unknown) on 04/07/2022 at 13:29 ? (unknown) (no (unknown) (unknown) Blood Pressure (units (unknown) date) 175/79 H unknown) (unknown) (no (unknown) (unknown) Blood Pressure (units (unknown) date) 179/84 H unknown) (unknown) (no (unknown) (unknown) Bones and teeth:? (units (unknown) date) Orbital goldstein are unknown) intact.? Sinus goldtsein show no fracture or (unknown) (no (unknown) (unknown) Bones:? No (units (unk nown) date) fractures or unknown) dislocations.? Visualized superior ribs are intact.? (unknown) (no (unknown) (unknown) Brain:? No (units (unk nown) date) intracranial unknown) bleeds or masses.? There is cerebral volume loss for (unknown) (no (unknown) (unknown) Brother Age: 86 (units (unknown) date) Heart disease unknown) (unknown) (no (unknown) (unknown) COMPARISON:? (units (u nknown) date) [facility], unknown) CT, CT CERVICAL SPINE WO CON, 04/07/2022, 12:58.? (unknown) (no (unknown) (unknown) COMPARISON:? (units (u nknown) date) [facility], unknown) CT, CT FACIAL BONES WO CON, 04/07/2022, 12:58.? (unknown) (no (unknown) (unknown) CSF spaces:? (units (u nknown) date) Basal cisterns are unknown) patent.? No extra-axial fluid collections.? The (unknown) (no (unknown) (unknown) CT Cervical (units (un known) date) Spine: unknown) (unknown) (no (unknown) (unknown) CT Face: (units (unkno wn) date) unknown) (unknown) (no (unknown) (unknown) CT cervical spine (units (unknown) date) wo con Stat unknown) (unknown) (no (unknown) (unknown) CT facial bones (units (unknown) date) wo con Stat unknown) (unknown) (no (unknown) (unknown) CT head/brain wo (units (unknown) date) con Stat unknown) (unknown) (no (unknown) (unknown) CT scan - head: (units (unknown) date) unknown) (unknown) (no (unknown) (unknown) Cardiovascular: (units (unknown) date) No chest pain or unknown) palpitations (unknown) (no (unknown) (unknown) Cataracts, (units (unk nown) date) bilateral unknown) (Unknown) (unknown) (no (unknown) (unknown) Chief Complaint: (units (unknown) date) Fall unknown) (unknown) (no (unknown) (unknown) Course (units (unkno wn) date) unknown) (unknown) (no (unknown) (unknown) : 1935 (units (unknown) date) Acct:[id number] unknown) (unknown) (no (unknown) (unknown) Date of Service: (units (unknown) date) 04/07/22 unknown) (unknown) (no (unknown) (unknown) Departure (units (unkn own) date) unknown) (unknown) (no (unknown) (unknown) Dictated by: (units (u nknown) date) Aviva Rincon M.D. unknown) on 04/07/2022 at 13:24 ? ? (unknown) (no (unknown) (unknown) Dictated by: (units (u nknown) date) Aviva Rincon M.D. unknown) on 04/07/2022 at 13:26 ? ? (unknown) (no (unknown) (unknown) Dictated by: (units (u nknown) date) Aviva Rincon M.D. unknown) on 04/07/2022 at 13:28 ? ? 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 (units (unk nown) date) unknown) (unknown) (no (unknown) (unknown) Family History (units (unknown) date) (Reviewed 03/15/22 unknown) @ 11:18 by Natan Waldron DO) (unknown) (no (unknown) (unknown) Father (units (unknown) date) No problems noted. unknown) (unknown) (no (unknown) (unknown) GERD (units (unkno wn) date) (gastroesophageal unknown) reflux disease) (Unknown) (unknown) (no (unknown) (unknown) Gastrointestinal: (units (unknown) date) No nausea or unknown) vomiting (unknown) (no (unknown) (unknown) General (units (unkno wn) date) unknown) (unknown) (no (unknown) (unknown) General: No (units (un known) date) fever, chills or unknown) fatigue. (unknown) (no (unknown) (unknown) HEENT: Facial (units ( unknown) date) pain swelling and unknown) bruising after fall (unknown) (no (unknown) (unknown) HPI - Fall (units (unk nown) date) unknown) (unknown) (no (unknown) (unknown) HPI Narrative: (units (unknown) date) unknown) (unknown) (no (unknown) (unknown) History of (units (unk nown) date) Present Illness unknown) (unknown) (no (unknown) (unknown) Home Medications (units (unknown) date) unknown) (unknown) (no (unknown) (unknown) Hospital, CT, CT (units (unknown) date) FACIAL BONES WO unknown) CON, 04/07/2022, 12:58. (unknown) (no (unknown) (unknown) Hospital, CT, CT (units (unknown) date) HEAD/BRAIN WO CON, unknown) 04/07/2022, 12:58. (unknown) (no (unknown) (unknown) Hx of cataract (units (unknown) date) surgery (-2014) unknown) (unknown) (no (unknown) (unknown) Hyperlipemia (units (u nknown) date) (Unknown) unknown) (unknown) (no (unknown) (unknown) Hypertension (units (u nknown) date) (Unknown) unknown) (unknown) (no (unknown) (unknown) I find this (units (un known) date) patient to be unknown) medically disabled and qualified for disabled (unknown) (no (unknown) (unknown) IMPRESSION:? No (units (unknown) date) cervical fracture. unknown) (unknown) (no (unknown) (unknown) IMPRESSION:? (units (u nknown) date) unknown) (unknown) (no (unknown) (unknown) INDICATIONS:? (units ( unknown) date) fall face first on unknown) blood thinners (unknown) (no (unknown) (unknown) Image quality:? (units (unknown) date) Excellent.? unknown) (unknown) (no (unknown) (unknown) Imaging Data (units (u nknown) date) unknown) (unknown) (no (unknown) (unknown) Initial Vital (units ( unknown) date) Signs unknown) (unknown) (no (unknown) (unknown) Initial Vital (units ( unknown) date) Signs: unknown) (unknown) (no (unknown) (unknown) [facility] (units (unknown) date) [address] unknown) [place] [address] (unknown) (no (unknown) (unknown) [place] (units (unkno wn) date) unknown) (unknown) (no (unknown) (unknown) Ketorolac (units (unkn own) date) Tromethamine unknown) (Ketorolac 30 Mg/Ml Vial) 30 mg IV NOW ONE (unknown) (no (unknown) (unknown) Knee pain (units (unkn own) date) unknown) (unknown) (no (unknown) (unknown) Label Comments: (units (unknown) date) unknown) (unknown) (no (unknown) (unknown) Left knee pain (units (unknown) date) unknown) (unknown) (no (unknown) (unknown) Low back pain (units ( unknown) date) unknown) (unknown) (no (unknown) (unknown) MDM - Fall (units (unk nown) date) unknown) (unknown) (no (unknown) (unknown) Medical History (units (unknown) date) (Reviewed 03/15/22 unknown) @ 11:18 by Natan Waldron DO) (unknown) (no (unknown) (unknown) Medication (units (unk nown) date) Instructions unknown) Recorded Confirmed (unknown) (no (unknown) (unknown) Medication (units (unk nown) date) Instructions unknown) Recorded (unknown) (no (unknown) (unknown) Mitral (units (unkno wn) date) regurgitation unknown) (Unknown) (unknown) (no (unknown) (unknown) Mode of arrival: (units (unknown) date) EMS unknown) (unknown) (no (unknown) (unknown) Mother (units (unknown) date) No problems noted. unknown) (unknown) (no (unknown) (unknown) Multilevel (units (unk nown) date) unknown) (unknown) (no (unknown) (unknown) Musculoskeletal: (units (unknown) date) No pain in muscles unknown) or joints, no limitation of range of motion, (unknown) (no (unknown) (unknown) Narrative: (units (unk nown) date) unknown) (unknown) (no (unknown) (unknown) Nasal bone with (units (unknown) date) possible nasal unknown) septal fracture.? (unknown) (no (unknown) (unknown) Neurological: (units ( unknown) date) Awake, alert and unknown) in not apparent distress. No Headaches, changes (unknown) (no (unknown) (unknown) No Action (units (unkn own) date) unknown) (unknown) (no (unknown) (unknown) No Known Drug (units ( unknown) date) Allergies Allergy unknown) Verified 03/15/22 10:39 (unknown) (no (unknown) (unknown) Noncontrast 2.5 (units (unknown) date) mm thick axial unknown) images acquired from the mandible through the (unknown) (no (unknown) (unknown) Noncontrast 3 mm (units (unknown) date) thick sections unknown) acquired from the skull base to the T4 level.? 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 CT (units (unknown) date) CERVICAL SPINE WO unknown) CON (unknown) (no (unknown) (unknown) PROCEDURE:? CT (units (unknown) date) FACIAL BONES WO unknown) CON (unknown) (no (unknown) (unknown) PROCEDURE:? CT (units (unknown) date) HEAD/BRAIN WO CON unknown) (unknown) (no (unknown) (unknown) Parking Permit... (units (unknown) date) #1 ea 02/08/22 unknown) (unknown) (no (unknown) (unknown) Patient History (units (unknown) date) unknown) (unknown) (no (unknown) (unknown) Patient is an (units ( unknown) date) 86-year-old female unknown) who presents to the emergency room today with (unknown) (no (unknown) (unknown) Patient: (units (unkno wn) date) Dana Pillai unknown) MR#: [id number] (unknown) (no (unknown) (unknown) Natan Waldron, (units (unknown) date) DO [Primary Care unknown) Provider] (unknown) (no (unknown) (unknown) Prescriptions: (units (unknown) date) unknown) (unknown) (no (unknown) (unknown) Previous Rx's (units ( unknown) date) unknown) (unknown) (no (unknown) (unknown) Pulse Oximetry 97 (units (unknown) date) unknown) (unknown) (no (unknown) (unknown) Pulse Oximetry 98 (units (unknown) date) unknown) (unknown) (no (unknown) (unknown) Pulse Rate 67 (units ( unknown) date) unknown) (unknown) (no (unknown) (unknown) Pulse Rate 96 H (units (unknown) date) 04/07/22 12:53 unknown) (unknown) (no (unknown) (unknown) Pulse Rate 96 H (units (unknown) date) 73 unknown) (unknown) (no (unknown) (unknown) Qty: 0 (units (unkno wn) date) unknown) (unknown) (no (unknown) (unknown) R.O.S.: (units (unkno wn) date) unknown) (unknown) (no (unknown) (unknown) Radiologist's (units ( unknown) date) Impression: unknown) (unknown) (no (unknown) (unknown) Referrals: (units (unk nown) date) unknown) (unknown) (no (unknown) (unknown) Related Data (units (u nknown) date) unknown) (unknown) (no (unknown) (unknown) Respiratory: No (units (unknown) date) S.O.B. unknown) (unknown) (no (unknown) (unknown) Review of Systems (units (unknown) date) unknown) (unknown) (no (unknown) (unknown) Rx Instructions: (units (unknown) date) unknown) (unknown) (no (unknown) (unknown) Sagittal (units (unkno wn) date) unknown) (unknown) (no (unknown) (unknown) See Rx (units (unkno wn) date) Instructions unknown) .[facility] Qty: 1 0RF (unknown) (no (unknown) (unknown) Signed By: (units (unk nown) date) unknown) (unknown) (no (unknown) (unknown) Sinuses:? (units (unkn own) date) Scattered fluid is unknown) present within the ethmoid air cells. (unknown) (no (unknown) (unknown) Sinuses:? (units (unkn own) date) Visualized sinuses unknown) demonstrate ethmoid mucosal thickening. (unknown) (no (unknown) (unknown) Skin: No rash or (units (unknown) date) associated unknown) abnormalities (unknown) (no (unknown) (unknown) Skull and face:? (units (unknown) date) Calvarium appears unknown) intact.? There is comminuted nasal bone (unknown) (no (unknown) (unknown) Smoking Status: (units (unknown) date) Never smoker unknown) (unknown) (no (unknown) (unknown) Social History (units (unknown) date) unknown) (unknown) (no (unknown) (unknown) Soft tissues:? No (units (unknown) date) edema, masses, or unknown) fluid collections.? No enlarged lymph (unknown) (no (unknown) (unknown) Soft tissues:? (units (unknown) date) Prevertebral soft unknown) tissues are normal in thickness.? No (unknown) (no (unknown) (unknown) Source: EMS (units (un known) date) unknown) (unknown) (no (unknown) (unknown) Stated Complaint: (units (unknown) date) Trip/Fall face unknown) first,on eliquis,no loc,mod trauma (unknown) (no (unknown) (unknown) Status post right (units (unknown) date) breast lumpectomy unknown) () (unknown) (no (unknown) (unknown) Stop: 04/07/22 (units (unknown) date) 13:41 unknown) (unknown) (no (unknown) (unknown) Substance Use (units ( unknown) date) Type: does not use unknown) (unknown) (no (unknown) (unknown) Superficial (units (un known) date) laceration unknown) (unknown) (no (unknown) (unknown) Surgical History (units (unknown) date) (Reviewed 03/15/22 unknown) @ 11:18 by Natan Waldron DO) (unknown) (no (unknown) (unknown) TECHNIQUE:? (units (un known) date) unknown) (unknown) (no (unknown) (unknown) Takes Eliquis and (units (unknown) date) blood pressure unknown) medications. (unknown) (no (unknown) (unknown) Temperature 97.6 (units (unknown) date) F unknown) (unknown) (no (unknown) (unknown) Temperature (units (un known) date) unknown) (unknown) (no (unknown) (unknown) There is a slight (units (unknown) date) offset appearance unknown) of the nasal septum.? Overlying soft tissue (unknown) (no (unknown) (unknown) There is (units (unkno wn) date) comminuted nasal unknown) bone fracture with overlying soft tissue edema.? There (unknown) (no (unknown) (unknown) Urinary (units (unkno wn) date) incontinence unknown) (Unknown) (unknown) (no (unknown) (unknown) Vascular:? (units (unk nown) date) Visualized unknown) vascular structures appear normal in the absence of (unknown) (no (unknown) (unknown) Visualized (units (unk nown) date) portions of the unknown) skull base and auditory canals are intact.? (unknown) (no (unknown) (unknown) Vital Signs - 8 (units (unknown) date) hr unknown) (unknown) (no (unknown) (unknown) Vital Signs (units (un known) date) unknown) (unknown) (no (unknown) (unknown) Vital signs: (units (u nknown) date) unknown) (unknown) (no (unknown) (unknown) Well adult exam (units (unknown) date) unknown) (unknown) (no (unknown) (unknown) [GARLIC] ##0 (units (u nknown) date) 05/24/17 08/11/22 unknown) (unknown) (no (unknown) (unknown) [GARLIC] (units (unkno wn) date) unknown) (unknown) (no (unknown) (unknown) according to (units (u nknown) date) unknown) (unknown) (no (unknown) (unknown) age, with (units (unkn own) date) unknown) (unknown) (no (unknown) (unknown) alcohol intake (units (unknown) date) frequency: 0-2 unknown) drinks per day (unknown) (no (unknown) (unknown) alcohol intake: (units (unknown) date) current unknown) (unknown) (no (unknown) (unknown) amlodipine 5 mg (units (unknown) date) tablet 5 mg PO unknown) DAILY 02/17/18 03/15/22 (unknown) (no (unknown) (unknown) amlodipine 5 mg (units (unknown) date) tablet unknown) (unknown) (no (unknown) (unknown) and coronal (units (un known) date) reformats were unknown) then constructed.? For radiation dose reduction, the (unknown) (no (unknown) (unknown) apixaban 5 mg (units ( unknown) date) tablet (Eliquis) 5 unknown) mg PO BID #180 tabs 10/12/20 (unknown) (no (unknown) (unknown) apply to single (units (unknown) date) elbow, wrist or unknown) hand; for hand includes palm/fingers/back of (unknown) (no (unknown) (unknown) artery (units (unkno wn) date) atherosclerosis.? unknown) (unknown) (no (unknown) (unknown) carotid (units (unkno wn) date) unknown) (unknown) (no (unknown) (unknown) cholecalciferol (units (unknown) date) (vitamin D3) 1,000 unknown) unit capsule (unknown) (no (unknown) (unknown) cholecalciferol (units (unknown) date) (vitamin D3) 25 unknown) 1,000 unit PO DAILY 02/17/18 03/15/22 (unknown) (no (unknown) (unknown) complaint of face (units (unknown) date) pain after a fall. unknown) States she fell this morning at about 1 (unknown) (no (unknown) (unknown) contrast.? Bony (units (unknown) date) unknown) (unknown) (no (unknown) (unknown) dapsone 25 mg (units ( unknown) date) tablet 25 mg PO unknown) .COMPLEX 08/20/18 03/15/22 (unknown) (no (unknown) (unknown) dapsone 25 mg (units ( unknown) date) tablet unknown) (unknown) (no (unknown) (unknown) deformity.? (units (un known) date) unknown) (unknown) (no (unknown) (unknown) degenerative (units (u nknown) date) changes are unknown) present. (unknown) (no (unknown) (unknown) diclofenac sodium (units (unknown) date) 1 % topical gel 2 unknown) g topical ONCE arthritis pain 10/12/20 (unknown) (no (unknown) (unknown) diclofenac sodium (units (unknown) date) [Voltaren] 1 % gel unknown) (unknown) (no (unknown) (unknown) edema is (units (unkno wn) date) unknown) (unknown) (no (unknown) (unknown) fall. 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 (unknown) (no (unknown) (unknown) fall. Last fall (units (unknown) date) was about 5 years unknown) ago. Denies ever passing out and falling. (unknown) (no (unknown) (unknown) following was (units ( unknown) date) used:? automated unknown) exposure control, adjustment of mA and/or kV (unknown) (no (unknown) (unknown) following (units (unkn own) date) unknown) (unknown) (no (unknown) (unknown) for Individuals. (units (unknown) date) unknown) (unknown) (no (unknown) (unknown) fractures or (units (u nknown) date) subluxation.? unknown) Zygomatic arches are intact.? Pterygoid plates are (unknown) (no (unknown) (unknown) fractures.? (units (un known) date) unknown) (unknown) (no (unknown) (unknown) frontal (units (unkno wn) date) unknown) (unknown) (no (unknown) (unknown) hand (units (unkno wn) date) unknown) (unknown) (no (unknown) (unknown) hematomas.? No (units (unknown) date) apical unknown) pneumothoraces.? Mild fluid is noted in the posterior (unknown) (no (unknown) (unknown) in the posterior (units (unknown) date) oropharynx.? unknown) Visualized portions of the mandible demonstrate no (unknown) (no (unknown) (unknown) in vision or (units (u nknown) date) other related unknown) neurological concerns. (unknown) (no (unknown) (unknown) intact.? (units (unkno wn) date) unknown) (unknown) (no (unknown) (unknown) is noted (units (unkno wn) date) unknown) (unknown) (no (unknown) (unknown) is (units (unkno wn) date) unknown) (unknown) (no (unknown) (unknown) losartan 100 mg (units (unknown) date) tablet 100 mg PO unknown) DAILY #90 tabs 08/20/18 (unknown) (no (unknown) (unknown) losartan 100 mg (units (unknown) date) tablet unknown) (unknown) (no (unknown) (unknown) matter chronic (units (unknown) date) small vessel unknown) ischemic changes.? There is intracranial internal (unknown) (no (unknown) (unknown) mcg (1,000 unit) (units (unknown) date) capsule unknown) (unknown) (no (unknown) (unknown) metoprolol (units (unk nown) date) tartrate 50 MG unknown) tablet (unknown) (no (unknown) (unknown) metoprolol (units (unk nown) date) tartrate 50 mg unknown) tablet 50 mg PO BID #180 tabs 06/10/17 (unknown) (no (unknown) (unknown) no paresthesia or (units (unknown) date) numbness. ?? unknown) (unknown) (no (unknown) (unknown) nodes.? No soft (units (unknown) date) unknown) (unknown) (no (unknown) (unknown) oropharynx. (units (un known) date) unknown) (unknown) (no (unknown) (unknown) paravertebral (units ( unknown) date) unknown) (unknown) (no (unknown) (unknown) parking as (units (unkn own) date) indicated and unknown) signed on the Accompanying Disabled Parking Application (unknown) (no (unknown) (unknown) patient size.? (units (unknown) date) unknown) (unknown) (no (unknown) (unknown) patient (units (unkno wn) date) unknown) (unknown) (no (unknown) (unknown) present.? Mild (units (unknown) date) fluid is noted in unknown) the posterior oropharynx. (unknown) (no (unknown) (unknown) release 24 hr (units ( unknown) date) unknown) (unknown) (no (unknown) (unknown) resultant (units (unkno wn) date) ventricular and unknown) sulcal prominence.? There are periventricular and deep (unknown) (no (unknown) (unknown) simvastatin 20 mg (units (unknown) date) tablet 20 mg PO HS unknown) #90 tabs 11/16/21 (unknown) (no (unknown) (unknown) simvastatin 20 mg (units (unknown) date) tablet unknown) (unknown) (no (unknown) (unknown) sinuses, with (units ( unknown) date) coronal and unknown) sagittal reformatting.? For radiation dose reduction, (unknown) (no (unknown) (unknown) size.? (units (unkno wn) date) unknown) (unknown) (no (unknown) (unknown) slight offset (units (u nknown) date) appearance of the unknown) nasal septum suggestive of fracture.? Mild fluid (unknown) (no (unknown) (unknown) substance use (units ( unknown) date) type: does not use unknown) (unknown) (no (unknown) (unknown) the 1st step. Has (units (unknown) date) fallen in the past unknown) in each fall was related to a trip or (unknown) (no (unknown) (unknown) the (units (unkno wn) date) unknown) (unknown) (no (unknown) (unknown) tissue (units (unkno wn) date) lacerations or unknown) debris.? (unknown) (no (unknown) (unknown) to the (units (unkno wn) date) unknown) (unknown) (no (unknown) (unknown) tolterodine 2 mg (units (unknown) date) capsule,extended 2 unknown) mg PO DAILY #90 caps 09/11/21 (unknown) (no (unknown) (unknown) tolterodine 2 mg (units (unknown) date) capsule,extended unknown) release 24hr (unknown) (no (unknown) (unknown) vascular foramina (units (unknown) date) and canals are unknown) intact.? (unknown) (no (unknown) (unknown) ventricles are (units (unknown) date) symmetric in size unknown) and shape.? (unknown) (no (unknown) (unknown) vertex, with (units (u nknown) date) coronal and unknown) sagittal reformats.? For radiation dose reduction, the (unknown) (no (unknown) (unknown) was used:? (units (unk nown) date) automated exposure unknown) control, adjustment of mA and/or kV according to (unknown) (no (unknown) (unknown) white (units (unkno wn) date) unknown) Result panel 19 (unknown) (no date) (unknown) (unknown) 0 /ul (unkn own) (unknown) (no date) (unknown) (unknown) 0 /ul (unkn own) (unknown) (no date) (unknown) (unknown) 0.5 % (unkn own) (unknown) (no date) (unknown) (unknown) 0.7 % (unkn own) (unknown) (no date) (unknown) (unknown) 12.3 g/dl (unkn own) (unknown) (no date) (unknown) (unknown) 13.6 % (unkn own) (unknown) (no date) (unknown) (unknown) 169 x10 3/ul (unkn own) (unknown) (no date) (unknown) (unknown) 1700 /ul (unkn own) (unknown) (no date) (unknown) (unknown) 30.6 pg (unkn own) (unknown) (no date) (unknown) (unknown) 3100 /ul (unkn own) (unknown) (no date) (unknown) (unknown) 32.2 % (unkn own) (unknown) (no date) (unknown) (unknown) 33.3 % (unkn own) (unknown) (no date) (unknown) (unknown) 36.9 % (unkn own) (unknown) (no date) (unknown) (unknown) 4.01 x10 6/ul (unkn own) (unknown) (no date) (unknown) (unknown) 5.4 x10 3/ul (unkn own) (unknown) (no date) (unknown) (unknown) 500 /ul (unkn own) (unknown) (no date) (unknown) (unknown) 57.0 % (unkn own) (unknown) (no date) (unknown) (unknown) 9.6 % (unkn own) (unknown) (no date) (unknown) (unknown) 91.9 fl (unkn own) Result panel 20 (unknown) (no date) (unknown) (unknown) > 60 ml/min (unkn own) (unknown) (no date) (unknown) (unknown) > 60 ml/min (unkn own) (unknown) (no date) (unknown) (unknown) 0.76 mg/dl (unkn own) (unknown) (no date) (unknown) (unknown) 0.8 mg/dl (unkn own) (unknown) (no date) (unknown) (unknown) 1.4 (units unknown) (unknown) (unknown) (no date) (unknown) (unknown) 106 mmol/l (unkn own) (unknown) (no date) (unknown) (unknown) 135 mmol/l (unkn own) (unknown) (no date) (unknown) (unknown) 14 iu/l (unkn own) (unknown) (no date) (unknown) (unknown) 18 mg/dl (unkn own) (unknown) (no date) (unknown) (unknown) 2.8 g/dl (unkn own) (unknown) (no date) (unknown) (unknown) 23 mmol/l (unkn own) (unknown) (no date) (unknown) (unknown) 23.7 (units unknown) (unknown) (unknown) (no date) (unknown) (unknown) 3.8 g/dl (unkn own) (unknown) (no date) (unknown) (unknown) 32 iu/l (unkn own) (unknown) (no date) (unknown) (unknown) 36 u/l (unkn own) (unknown) (no date) (unknown) (unknown) 4.3 mmol/l (unkn own) (unknown) (no date) (unknown) (unknown) 6.6 g/dl (unkn own) (unknown) (no date) (unknown) (unknown) 8.7 mg/dl (unkn own) (unknown) (no date) (unknown) (unknown) 89 mg/dl (unkn own) (unknown) (no date) (unknown) (unknown) 89 mg/dl (unkn own) Result panel 21 (unknown) (no (unknown) (unknown) (no value) (units (unk nown) date) unknown) (unknown) (no (unknown) (unknown) (DME) Parking (units ( unknown) date) Permit... unknown) (unknown) (no (unknown) (unknown) ([employer]) #100 (units (unknown) date) grams unknown) (unknown) (no (unknown) (unknown) 04/07/22 12:51 (units (unknown) date) unknown) (unknown) (no (unknown) (unknown) 04/07/22 (units (unkno wn) date) unknown) (unknown) (no (unknown) (unknown) 1 PO every other (units (unknown) date) day unknown) (unknown) (no (unknown) (unknown) 1,000 unit PO (units ( unknown) date) DAILY unknown) (unknown) (no (unknown) (unknown) 1. No acute (units (un known) date) intracranial unknown) process. (unknown) (no (unknown) (unknown) 100 mg PO DAILY (units (unknown) date) Qty: 90 1RF unknown) (unknown) (no (unknown) (unknown) 12 intact. ?? (units ( unknown) date) unknown) (unknown) (no (unknown) (unknown) 12:53 04/07/22 (units (unknown) date) unknown) (unknown) (no (unknown) (unknown) 12:54 04/07/22 (units (unknown) date) unknown) (unknown) (no (unknown) (unknown) 12:54 (units (unkno wn) date) unknown) (unknown) (no (unknown) (unknown) 12:55 04/07/22 (units (unknown) date) unknown) (unknown) (no (unknown) (unknown) 12:55 (units (unkno wn) date) unknown) (unknown) (no (unknown) (unknown) 1:00 a.m. while (units (unknown) date) she was walking unknown) into her she had. Fall was because she missed (unknown) (no (unknown) (unknown) 2 g TOP ONCE Qty: (units (unknown) date) 100 5RF unknown) (unknown) (no (unknown) (unknown) 2 mg PO DAILY (units ( unknown) date) Qty: 90 3RF unknown) (unknown) (no (unknown) (unknown) 2. Moderate (units (un known) date) atrophy and unknown) chronic microvascular ischemic changes. (unknown) (no (unknown) (unknown) 20 mg PO HS Qty: (units (unknown) date) 90 1RF unknown) (unknown) (no (unknown) (unknown) 25 mg PO .COMPLEX (units (unknown) date) unknown) (unknown) (no (unknown) (unknown) 3. Comminuted (units ( unknown) date) nasal bone and unknown) possibly nondisplaced nasal septal fracture.? (unknown) (no (unknown) (unknown) [id number] (units (unkno wn) date) unknown) (unknown) (no (unknown) (unknown) 5 mg PO BID Qty: (units (unknown) date) 180 1RF unknown) (unknown) (no (unknown) (unknown) 5 mg PO DAILY (units ( unknown) date) unknown) (unknown) (no (unknown) (unknown) 50 mg PO BID Qty: (units (unknown) date) 180 3RF unknown) (unknown) (no (unknown) (unknown) ? (units (unkno wn) date) unknown) (unknown) (no (unknown) (unknown) Age/Sex: 86 / F (units (unknown) date) unknown) (unknown) (no (unknown) (unknown) Allergies (units (unkn own) date) unknown) (unknown) (no (unknown) (unknown) Allergy/AdvReac (units (unknown) date) Type Severity unknown) Reaction Status Date / Time (unknown) (no (unknown) (unknown) Also denies (units (un known) date) double vision or unknown) any other neurological concerns related to this (unknown) (no (unknown) (unknown) Anemia (units (unkno wn) date) unknown) (unknown) (no (unknown) (unknown) Approved by: (units (u nknown) date) Aviva Rincon M.D. unknown) on 04/07/2022 at 13:26 ? (unknown) (no (unknown) (unknown) Approved by: (units (u nknown) date) Aviva Rincon M.D. unknown) on 04/07/2022 at 13:27 ? (unknown) (no (unknown) (unknown) Approved by: (units (u nknown) date) Aviva Rincon M.D. unknown) on 04/07/2022 at 13:29 ? (unknown) (no (unknown) (unknown) Blood Pressure (units (unknown) date) 175/79 H unknown) (unknown) (no (unknown) (unknown) Blood Pressure (units (unknown) date) 179/84 H unknown) (unknown) (no (unknown) (unknown) Bones and teeth:? (units (unknown) date) Orbital goldstein are unknown) intact.? Sinus goldstein show no fracture or (unknown) (no (unknown) (unknown) Bones:? No (units (unk nown) date) fractures or unknown) dislocations.? Visualized superior ribs are intact.? (unknown) (no (unknown) (unknown) Brain:? No (units (unk nown) date) intracranial unknown) bleeds or masses.? There is cerebral volume loss for (unknown) (no (unknown) (unknown) Brother Age: 86 (units (unknown) date) Heart disease unknown) (unknown) (no (unknown) (unknown) COMPARISON:? (units (u nknown) date) [facility], unknown) CT, CT CERVICAL SPINE WO [facility], 04/07/2022, 12:58.? (unknown) (no (unknown) (unknown) COMPARISON:? (units (u nknown) date) [facility], unknown) CT, CT FACIAL BONES WO [facility], 04/07/2022, 12:58.? (unknown) (no (unknown) (unknown) CSF spaces:? (units (u nknown) date) Basal cisterns are unknown) patent.? No extra-axial fluid collections.? The (unknown) (no (unknown) (unknown) CT Cervical (units (un known) date) Spine: unknown) (unknown) (no (unknown) (unknown) CT Face: (units (unkno wn) date) unknown) (unknown) (no (unknown) (unknown) CT cervical spine (units (unknown) date) wo con Stat unknown) (unknown) (no (unknown) (unknown) CT facial bones (units (unknown) date) wo con Stat unknown) (unknown) (no (unknown) (unknown) CT head/brain wo (units (unknown) date) con Stat unknown) (unknown) (no (unknown) (unknown) CT scan - head: (units (unknown) date) unknown) (unknown) (no (unknown) (unknown) Cardiovascular: (units (unknown) date) No chest pain or unknown) palpitations (unknown) (no (unknown) (unknown) Cataracts, (units (unk nown) date) bilateral unknown) (Unknown) (unknown) (no (unknown) (unknown) Chest film, urine (units (unknown) date) POC, CBC CMP and unknown) ECG were ordered to rule out other possible (unknown) (no (unknown) (unknown) Chest: Lungs (units (u nknown) date) CTAB, no rales, unknown) rhonchi or wheezes. ?? (unknown) (no (unknown) (unknown) Chief Complaint: (units (unknown) date) Fall unknown) (unknown) (no (unknown) (unknown) Course (units (unkno wn) date) unknown) (unknown) (no (unknown) (unknown) : 1935 (units (unknown) date) Acct:[id number] unknown) (unknown) (no (unknown) (unknown) Date of Service: (units (unknown) date) 04/07/22 unknown) (unknown) (no (unknown) (unknown) Departure (units (unkn own) date) unknown) (unknown) (no (unknown) (unknown) Dictated by: (units (u nknown) date) Aviva Rincon M.D. unknown) on 04/07/2022 at 13:24 ? ? (unknown) (no (unknown) (unknown) Dictated by: (units (u nknown) date) Aviva Rincon M.D. unknown) on 04/07/2022 at 13:26 ? ? (unknown) (no (unknown) (unknown) Dictated by: (units (u nknown) date) Aviva Rincon M.D. unknown) on 04/07/2022 at 13:28 ? ? 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 ?? (unknown) (no (unknown) (unknown) Eyes: PERRLA, (units ( unknown) date) EOM's full, unknown) conjunctivae clear. ? (unknown) (no (unknown) (unknown) FINDINGS:? (units (unk nown) date) unknown) (unknown) (no (unknown) (unknown) Face: Has (units (unkn own) date) swelling and unknown) erythema to the nasal bridge. Also appears to be a (unknown) (no (unknown) (unknown) Family History (units (unknown) date) (Reviewed 03/15/22 unknown) @ 11:18 by Natan Waldron DO) (unknown) (no (unknown) (unknown) Father (units (unknown) date) No problems noted. unknown) (unknown) (no (unknown) (unknown) Further (units (unkno wn) date) collection of HPI unknown) reveals history of hypertension atrial fibrillation (unknown) (no (unknown) (unknown) GERD (units (unkno wn) date) (gastroesophageal unknown) reflux disease) (Unknown) (unknown) (no (unknown) (unknown) Gastrointestinal: (units (unknown) date) No nausea or unknown) vomiting (unknown) (no (unknown) (unknown) Gastrointestinal: (units (unknown) date) Soft; NT; ND; Pos unknown) BS with Neg. rebound tenderness. No scars or (unknown) (no (unknown) (unknown) General (units (unkno wn) date) unknown) (unknown) (no (unknown) (unknown) General: No (units (un known) date) fever, chills or unknown) fatigue. (unknown) (no (unknown) (unknown) General: normal (units (unknown) date) appearance, well unknown) developed, well nourished, alert, and awake. (unknown) (no (unknown) (unknown) HEENT: Facial (units ( unknown) date) pain swelling and unknown) bruising after fall (unknown) (no (unknown) (unknown) HPI - Fall (units (unk nown) date) unknown) (unknown) (no (unknown) (unknown) HPI Narrative: (units (unknown) date) unknown) (unknown) (no (unknown) (unknown) Head: (units (unkno wn) date) Normocephalic, no unknown) lesions. (unknown) (no (unknown) (unknown) Heart: RRR, no (units (unknown) date) murmurs, rubs or unknown) gallops. (unknown) (no (unknown) (unknown) History of (units (unk nown) date) Present Illness unknown) (unknown) (no (unknown) (unknown) Home Medications (units (unknown) date) unknown) (unknown) (no (unknown) (unknown) Hospital, CT, CT (units (unknown) date) FACIAL BONES WO unknown) CON, 04/07/2022, 12:58. (unknown) (no (unknown) (unknown) Hospital, CT, CT (units (unknown) date) HEAD/BRAIN WO CON, unknown) 04/07/2022, 12:58. (unknown) (no (unknown) (unknown) Hx of cataract (units (unknown) date) surgery (-2015) unknown) (unknown) (no (unknown) (unknown) Hyperlipemia (units (u nknown) date) (Unknown) unknown) (unknown) (no (unknown) (unknown) Hypertension (units (u nknown) date) (Unknown) unknown) (unknown) (no (unknown) (unknown) I find this (units (un known) date) patient to be unknown) medically disabled and qualified for disabled (unknown) (no (unknown) (unknown) IMPRESSION:? No (units (unknown) date) cervical fracture. unknown) (unknown) (no (unknown) (unknown) IMPRESSION:? (units (u nknown) date) unknown) (unknown) (no (unknown) (unknown) INDICATIONS:? (units ( unknown) date) fall face first on unknown) blood thinners (unknown) (no (unknown) (unknown) Image quality:? (units (unknown) date) Excellent.? unknown) (unknown) (no (unknown) (unknown) Imaging Data (units (u nknown) date) unknown) (unknown) (no (unknown) (unknown) Initial Vital (units ( unknown) date) Signs unknown) (unknown) (no (unknown) (unknown) Initial Vital (units ( unknown) date) Signs: unknown) (unknown) (no (unknown) (unknown) [facility] (units (unknown) date) [address] unknown) [place] [address] (unknown) (no (unknown) (unknown) [place] (units (unkno wn) date) unknown) (unknown) (no (unknown) (unknown) Ketorolac (units (unkn own) date) Tromethamine unknown) (Ketorolac 30 Mg/Ml Vial) 30 mg IV NOW ONE (unknown) (no (unknown) (unknown) Knee pain (units (unkn own) date) unknown) (unknown) (no (unknown) (unknown) Label Comments: (units (unknown) date) unknown) (unknown) (no (unknown) (unknown) Left knee pain (units (unknown) date) unknown) (unknown) (no (unknown) (unknown) Low back pain (units ( unknown) date) unknown) (unknown) (no (unknown) (unknown) MDM - Fall (units (unk nown) date) unknown) (unknown) (no (unknown) (unknown) MDM Narrative (units ( unknown) date) unknown) (unknown) (no (unknown) (unknown) Medical History (units (unknown) date) (Reviewed 03/15/22 unknown) @ 11:18 by Natan Waldron DO) (unknown) (no (unknown) (unknown) Medical decision (units (unknown) date) making narrative: unknown) (unknown) (no (unknown) (unknown) Medication (units (unk nown) date) Instructions unknown) Recorded Confirmed (unknown) (no (unknown) (unknown) Medication (units (unk nown) date) Instructions unknown) Recorded (unknown) (no (unknown) (unknown) Mitral (units (unkno wn) date) regurgitation unknown) (Unknown) (unknown) (no (unknown) (unknown) Mode of arrival: (units (unknown) date) EMS unknown) (unknown) (no (unknown) (unknown) Mother (units (unknown) date) No problems noted. unknown) (unknown) (no (unknown) (unknown) Multilevel (units (unk nown) date) unknown) (unknown) (no (unknown) (unknown) Musculoskeletal: (units (unknown) date) No pain in muscles unknown) or joints, no limitation of range of motion, (unknown) (no (unknown) (unknown) Narrative (units (unkn own) date) unknown) (unknown) (no (unknown) (unknown) Narrative: (units (unk nown) date) unknown) (unknown) (no (unknown) (unknown) Nasal bone with (units (unknown) date) possible nasal unknown) septal fracture.? (unknown) (no (unknown) (unknown) Neuro: (units (unkno wn) date) Physiological, no unknown) localizing findings, No pain to palpation of neck, CN3 (unknown) (no (unknown) (unknown) Neurological: (units ( unknown) date) Awake, alert and unknown) in not apparent distress. No Headaches, changes (unknown) (no (unknown) (unknown) No Action (units (unkn own) date) unknown) (unknown) (no (unknown) (unknown) No Known Drug (units ( unknown) date) Allergies Allergy unknown) Verified 03/15/22 10:39 (unknown) (no (unknown) (unknown) Noncontrast 2.5 (units (unknown) date) mm thick axial unknown) images acquired from the mandible through the (unknown) (no (unknown) (unknown) Noncontrast 3 mm (units (unknown) date) thick sections unknown) acquired from the skull base to the T4 level.? (unknown) (no (unknown) (unknown) Noncontrast 4.5 (units (unknown) date) mm thick angled unknown) axial sections acquired from the foramen magnum (unknown) (no (unknown) (unknown) Not in acute (units (u nknown) date) distress. ? 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 CT (units (unknown) date) CERVICAL SPINE WO unknown) CON (unknown) (no (unknown) (unknown) PROCEDURE:? CT (units (unknown) date) FACIAL BONES WO unknown) CON (unknown) (no (unknown) (unknown) PROCEDURE:? CT (units (unknown) date) HEAD/BRAIN WO CON unknown) (unknown) (no (unknown) (unknown) PSYCHIATRIC: The (units (unknown) date) mood is good, no unknown) blunted affect. Speech is clear. Thought (unknown) (no (unknown) (unknown) Parking Permit... (units (unknown) date) #1 ea 02/08/22 unknown) (unknown) (no (unknown) (unknown) Patient History (units (unknown) date) unknown) (unknown) (no (unknown) (unknown) Patient is an (units ( unknown) date) 86-year-old female unknown) who presents to the emergency room today with (unknown) (no (unknown) (unknown) Patient: (units (unkno wn) date) Dana Pillai M unknown) MR#: [id number] (unknown) (no (unknown) (unknown) Natan Waldron, (units (unknown) date) DO [Primary Care unknown) Provider] (unknown) (no (unknown) (unknown) Physical Exam: ? (units (unknown) date) unknown) (unknown) (no (unknown) (unknown) Prescriptions: (units (unknown) date) unknown) (unknown) (no (unknown) (unknown) Previous Rx's (units ( unknown) date) unknown) (unknown) (no (unknown) (unknown) Pulse Oximetry 97 (units (unknown) date) unknown) (unknown) (no (unknown) (unknown) Pulse Oximetry 98 (units (unknown) date) unknown) (unknown) (no (unknown) (unknown) Pulse Rate 67 (units ( unknown) date) unknown) (unknown) (no (unknown) (unknown) Pulse Rate 96 H (units (unknown) date) 04/07/22 12:53 unknown) (unknown) (no (unknown) (unknown) Pulse Rate 96 H (units (unknown) date) 73 unknown) (unknown) (no (unknown) (unknown) Qty: 0 (units (unkno wn) date) unknown) (unknown) (no (unknown) (unknown) R.O.S.: (units (unkno wn) date) unknown) (unknown) (no (unknown) (unknown) Radiologist's (units ( unknown) date) Impression: unknown) (unknown) (no (unknown) (unknown) Referrals: (units (unk nown) date) unknown) (unknown) (no (unknown) (unknown) Related Data (units (u nknown) date) unknown) (unknown) (no (unknown) (unknown) Respiratory: No (units (unknown) date) S.O.B. unknown) (unknown) (no (unknown) (unknown) Review of Systems (units (unknown) date) unknown) (unknown) (no (unknown) (unknown) Rx Instructions: (units (unknown) date) unknown) (unknown) (no (unknown) (unknown) Sagittal (units (unkno wn) date) unknown) (unknown) (no (unknown) (unknown) See Rx (units (unkno wn) date) Instructions unknown) .Route .MEDSULY Qty: 1 0RF (unknown) (no (unknown) (unknown) Signed By: (units (unk nown) date) unknown) (unknown) (no (unknown) (unknown) Sinuses:? (units (unkn own) date) Scattered fluid is unknown) present within the ethmoid air cells. (unknown) (no (unknown) (unknown) Sinuses:? (units (unkn own) date) Visualized sinuses unknown) demonstrate ethmoid mucosal thickening. (unknown) (no (unknown) (unknown) Skin: No rash or (units (unknown) date) associated unknown) abnormalities (unknown) (no (unknown) (unknown) Skin: Normal, no (units (unknown) date) rashes, no lesions unknown) noted. ?? (unknown) (no (unknown) (unknown) Skull and face:? (units (unknown) date) Calvarium appears unknown) intact.? There is comminuted nasal bone (unknown) (no (unknown) (unknown) Smoking Status: (units (unknown) date) Never smoker unknown) (unknown) (no (unknown) (unknown) Social History (units (unknown) date) unknown) (unknown) (no (unknown) (unknown) Soft tissues:? No (units (unknown) date) edema, masses, or unknown) fluid collections.? No enlarged lymph (unknown) (no (unknown) (unknown) Soft tissues:? (units (unknown) date) Prevertebral soft unknown) tissues are normal in thickness.? No (unknown) (no (unknown) (unknown) Source: EMS (units (un known) date) unknown) (unknown) (no (unknown) (unknown) Stated Complaint: (units (unknown) date) Trip/Fall face unknown) first,on eliquis,no loc,mod trauma (unknown) (no (unknown) (unknown) Status post right (units (unknown) date) breast lumpectomy unknown) () (unknown) (no (unknown) (unknown) Stop: 04/07/22 (units (unknown) date) 13:41 unknown) (unknown) (no (unknown) (unknown) Substance Use (units ( unknown) date) Type: does not use unknown) (unknown) (no (unknown) (unknown) Superficial (units (un known) date) laceration unknown) (unknown) (no (unknown) (unknown) Surgical History (units (unknown) date) (Reviewed 03/15/22 unknown) @ 11:18 by Natan Waldron DO) (unknown) (no (unknown) (unknown) TECHNIQUE:? (units (un known) date) unknown) (unknown) (no (unknown) (unknown) Temperature 97.6 (units (unknown) date) F unknown) (unknown) (no (unknown) (unknown) Temperature (units (un known) date) unknown) (unknown) (no (unknown) (unknown) There is a slight (units (unknown) date) offset appearance unknown) of the nasal septum.? Overlying soft tissue (unknown) (no (unknown) (unknown) There is (units (unkno wn) date) comminuted nasal unknown) bone fracture with overlying soft tissue edema.? There (unknown) (no (unknown) (unknown) Urinary (units (unkno wn) date) incontinence unknown) (Unknown) (unknown) (no (unknown) (unknown) Vascular:? (units (unk nown) date) Visualized unknown) vascular structures appear normal in the absence of (unknown) (no (unknown) (unknown) Visualized (units (unk nown) date) portions of the unknown) skull base and auditory canals are intact.? (unknown) (no (unknown) (unknown) Vital Signs - 8 (units (unknown) date) hr unknown) (unknown) (no (unknown) (unknown) Vital Signs (units (un known) date) unknown) (unknown) (no (unknown) (unknown) Vital signs: (units (u nknown) date) unknown) (unknown) (no (unknown) (unknown) Well adult exam (units (unknown) date) unknown) (unknown) (no (unknown) (unknown) [GARLIC] ##0 (units (u nknown) date) 12/26/16 03/15/22 unknown) (unknown) (no (unknown) (unknown) [GARLIC] (units (unkno wn) date) unknown) (unknown) (no (unknown) (unknown) a comminuted (units (u nknown) date) nasal bone and a unknown) possible nondisplaced nasal septal fracture. (unknown) (no (unknown) (unknown) according to (units (u nknown) date) unknown) (unknown) (no (unknown) (unknown) age, with (units (unkn own) date) unknown) (unknown) (no (unknown) (unknown) alcohol intake (units (unknown) date) frequency: 0-2 unknown) drinks per day (unknown) (no (unknown) (unknown) alcohol intake: (units (unknown) date) current unknown) (unknown) (no (unknown) (unknown) amlodipine 5 mg (units (unknown) date) tablet 5 mg PO unknown) DAILY 02/17/18 03/15/22 (unknown) (no (unknown) (unknown) amlodipine 5 mg (units (unknown) date) tablet unknown) (unknown) (no (unknown) (unknown) and coronal (units (un known) date) reformats were unknown) then constructed.? For radiation dose reduction, the (unknown) (no (unknown) (unknown) and mild anemia. (units (unknown) date) CT scan of the unknown) head was negative but face CT was positive for (unknown) (no (unknown) (unknown) apixaban 5 mg (units ( unknown) date) tablet (Eliquis) 5 unknown) mg PO BID #180 tabs 10/12/20 (unknown) (no (unknown) (unknown) apply to single (units (unknown) date) elbow, wrist or unknown) hand; for hand includes palm/fingers/back of (unknown) (no (unknown) (unknown) artery (units (unkno wn) date) atherosclerosis.? unknown) (unknown) (no (unknown) (unknown) carotid (units (unkno wn) date) unknown) (unknown) (no (unknown) (unknown) cholecalciferol (units (unknown) date) (vitamin D3) 1,000 unknown) unit capsule (unknown) (no (unknown) (unknown) cholecalciferol (units (unknown) date) (vitamin D3) 25 unknown) 1,000 unit PO DAILY 02/17/18 03/15/22 (unknown) (no (unknown) (unknown) complaint facial (units (unknown) date) pain status post unknown) fall this morning at about 11:00 a.m.. (unknown) (no (unknown) (unknown) complaint of face (units (unknown) date) pain after a fall. unknown) States she fell this morning at about 1 (unknown) (no (unknown) (unknown) contrast.? Bony (units (unknown) date) unknown) (unknown) (no (unknown) (unknown) dapsone 25 mg (units ( unknown) date) tablet 25 mg PO unknown) .COMPLEX 08/20/18 03/15/22 (unknown) (no (unknown) (unknown) dapsone 25 mg (units ( unknown) date) tablet unknown) (unknown) (no (unknown) (unknown) deformity.? (units (un known) date) unknown) (unknown) (no (unknown) (unknown) degenerative (units (u nknown) date) changes are unknown) present. (unknown) (no (unknown) (unknown) diclofenac sodium (units (unknown) date) 1 % topical gel 2 unknown) g topical ONCE arthritis pain 10/12/20 (unknown) (no (unknown) (unknown) diclofenac sodium (units (unknown) date) [Voltaren] 1 % gel unknown) (unknown) (no (unknown) (unknown) edema is (units (unkno wn) date) unknown) (unknown) (no (unknown) (unknown) etiologies that (units (unknown) date) could be related unknown) to the fall. (unknown) (no (unknown) (unknown) fall. Also admits (units (unknown) date) to history of unknown) hypertension, mild anemia and atrial (unknown) (no (unknown) (unknown) fall. Last fall (units (unknown) date) was about 5 years unknown) ago. Denies ever passing out and falling. (unknown) (no (unknown) (unknown) fibrillation. (units ( unknown) date) Takes Eliquis and unknown) blood pressure medications. (unknown) (no (unknown) (unknown) following was (units ( unknown) date) used:? automated unknown) exposure control, adjustment of mA and/or kV (unknown) (no (unknown) (unknown) following (units (unkn own) date) unknown) (unknown) (no (unknown) (unknown) for Individuals. (units (unknown) date) unknown) (unknown) (no (unknown) (unknown) fractures or (units (u nknown) date) subluxation.? unknown) Zygomatic arches are intact.? Pterygoid plates are (unknown) (no (unknown) (unknown) fractures.? (units (un known) date) unknown) (unknown) (no (unknown) (unknown) frontal (units (unkno wn) date) unknown) (unknown) (no (unknown) (unknown) hand (units (unkno wn) date) unknown) (unknown) (no (unknown) (unknown) hematomas.? No (units (unknown) date) apical unknown) pneumothoraces.? Mild fluid is noted in the posterior (unknown) (no (unknown) (unknown) in the posterior (units (unknown) date) oropharynx.? unknown) Visualized portions of the mandible demonstrate no (unknown) (no (unknown) (unknown) in vision or (units (u nknown) date) other related unknown) neurological concerns. (unknown) (no (unknown) (unknown) intact.? (units (unkno wn) date) unknown) (unknown) (no (unknown) (unknown) is noted (units (unkno wn) date) unknown) (unknown) (no (unknown) (unknown) is (units (unkno wn) date) unknown) (unknown) (no (unknown) (unknown) losartan 100 mg (units (unknown) date) tablet 100 mg PO unknown) DAILY #90 tabs 08/20/18 (unknown) (no (unknown) (unknown) losartan 100 mg (units (unknown) date) tablet unknown) (unknown) (no (unknown) (unknown) major deformities (units (unknown) date) noted on Visual unknown) Inspection. (unknown) (no (unknown) (unknown) matter chronic (units (unknown) date) small vessel unknown) ischemic changes.? There is intracranial internal (unknown) (no (unknown) (unknown) mcg (1,000 unit) (units (unknown) date) capsule unknown) (unknown) (no (unknown) (unknown) metoprolol (units (unk nown) date) tartrate 50 MG unknown) tablet (unknown) (no (unknown) (unknown) metoprolol (units (unk nown) date) tartrate 50 mg unknown) tablet 50 mg PO BID #180 tabs 06/10/17 (unknown) (no (unknown) (unknown) no paresthesia or (units (unknown) date) numbness. ?? unknown) (unknown) (no (unknown) (unknown) nodes.? No soft (units (unknown) date) unknown) (unknown) (no (unknown) (unknown) oropharynx. (units (un known) date) unknown) (unknown) (no (unknown) (unknown) paravertebral (units ( unknown) date) unknown) (unknown) (no (unknown) (unknown) parking as (units (unkn own) date) indicated and unknown) signed on the Accompanying Disabled Parking Application (unknown) (no (unknown) (unknown) patient size.? (units (unknown) date) unknown) (unknown) (no (unknown) (unknown) patient (units (unkno wn) date) unknown) (unknown) (no (unknown) (unknown) present.? Mild (units (unknown) date) fluid is noted in unknown) the posterior oropharynx. (unknown) (no (unknown) (unknown) process is (units (unk nown) date) linear, thought unknown) content is appropriate. The voice is without (unknown) (no (unknown) (unknown) release 24 hr (units ( unknown) date) unknown) (unknown) (no (unknown) (unknown) resultant (units (unkno wn) date) ventricular and unknown) sulcal prominence.? There are periventricular and deep (unknown) (no (unknown) (unknown) secretions in the (units (unknown) date) bilateral nares. unknown) Entire nasal bridge is tender to palpation. (unknown) (no (unknown) (unknown) shift of the (units (u nknown) date) nasal bridge unknown) slightly to the right. There is also bloody (unknown) (no (unknown) (unknown) significant (units (un known) date) inflection. unknown) (unknown) (no (unknown) (unknown) simvastatin 20 mg (units (unknown) date) tablet 20 mg PO HS unknown) #90 tabs 11/16/21 (unknown) (no (unknown) (unknown) simvastatin 20 mg (units (unknown) date) tablet unknown) (unknown) (no (unknown) (unknown) sinuses, with (units ( unknown) date) coronal and unknown) sagittal reformatting.? For radiation dose reduction, (unknown) (no (unknown) (unknown) size.? (units (unkno wn) date) unknown) (unknown) (no (unknown) (unknown) slight offset (units (u nknown) date) appearance of the unknown) nasal septum suggestive of fracture.? Mild fluid (unknown) (no (unknown) (unknown) substance use (units ( unknown) date) type: does not use unknown) (unknown) (no (unknown) (unknown) the 1st step. Has (units (unknown) date) fallen in the past unknown) in each fall was related to a trip or (unknown) (no (unknown) (unknown) the (units (unkno wn) date) unknown) (unknown) (no (unknown) (unknown) tissue (units (unkno wn) date) lacerations or unknown) debris.? (unknown) (no (unknown) (unknown) to the (units (unkno wn) date) unknown) (unknown) (no (unknown) (unknown) tolterodine 2 mg (units (unknown) date) capsule,extended 2 unknown) mg PO DAILY #90 caps 09/11/21 (unknown) (no (unknown) (unknown) tolterodine 2 mg (units (unknown) date) capsule,extended unknown) release 24hr (unknown) (no (unknown) (unknown) vascular foramina (units (unknown) date) and canals are unknown) intact.? (unknown) (no (unknown) (unknown) ventricles are (units (unknown) date) symmetric in size unknown) and shape.? (unknown) (no (unknown) (unknown) vertex, with (units (u nknown) date) coronal and unknown) sagittal reformats.? For radiation dose reduction, the (unknown) (no (unknown) (unknown) was used:? (units (unk nown) date) automated exposure unknown) control, adjustment of mA and/or kV according to (unknown) (no (unknown) (unknown) white (units (unkno wn) date) unknown) Result panel 22 (unknown) (no (unknown) (unknown) (no value) (units (unk nown) date) unknown) (unknown) (no (unknown) (unknown) (DME) Parking (units ( unknown) date) Permit... unknown) (unknown) (no (unknown) (unknown) ([employer]) #100 (units (unknown) date) grams unknown) (unknown) (no (unknown) (unknown) 04/07/22 12:51 (units (unknown) date) unknown) (unknown) (no (unknown) (unknown) 04/07/22 (units (unkno wn) date) unknown) (unknown) (no (unknown) (unknown) 1 PO every other (units (unknown) date) day unknown) (unknown) (no (unknown) (unknown) 1,000 unit PO (units ( unknown) date) DAILY unknown) (unknown) (no (unknown) (unknown) 1. No acute (units (un known) date) intracranial unknown) process. (unknown) (no (unknown) (unknown) 100 mg PO DAILY (units (unknown) date) Qty: 90 1RF unknown) (unknown) (no (unknown) (unknown) 12 intact. ?? (units ( unknown) date) unknown) (unknown) (no (unknown) (unknown) 12:53 04/07/22 (units (unknown) date) unknown) (unknown) (no (unknown) (unknown) 12:54 04/07/22 (units (unknown) date) unknown) (unknown) (no (unknown) (unknown) 12:54 (units (unkno wn) date) unknown) (unknown) (no (unknown) (unknown) 12:55 04/07/22 (units (unknown) date) unknown) (unknown) (no (unknown) (unknown) 12:55 (units (unkno wn) date) unknown) (unknown) (no (unknown) (unknown) 1:00 a.m. while (units (unknown) date) she was walking unknown) into her she had. Fall was because she missed (unknown) (no (unknown) (unknown) 2 g TOP ONCE Qty: (units (unknown) date) 100 5RF unknown) (unknown) (no (unknown) (unknown) 2 mg PO DAILY (units ( unknown) date) Qty: 90 3RF unknown) (unknown) (no (unknown) (unknown) 2. Moderate (units (un known) date) atrophy and unknown) chronic microvascular ischemic changes. (unknown) (no (unknown) (unknown) 20 mg PO HS Qty: (units (unknown) date) 90 1RF unknown) (unknown) (no (unknown) (unknown) 25 mg PO .COMPLEX (units (unknown) date) unknown) (unknown) (no (unknown) (unknown) 3. Comminuted (units ( unknown) date) nasal bone and unknown) possibly nondisplaced nasal septal fracture.? (unknown) (no (unknown) (unknown) [id number] (units (unkno wn) date) unknown) (unknown) (no (unknown) (unknown) 5 mg PO BID Qty: (units (unknown) date) 180 1RF unknown) (unknown) (no (unknown) (unknown) 5 mg PO DAILY (units ( unknown) date) unknown) (unknown) (no (unknown) (unknown) 50 mg PO BID Qty: (units (unknown) date) 180 3RF unknown) (unknown) (no (unknown) (unknown) ? (units (unkno wn) date) unknown) (unknown) (no (unknown) (unknown) Age/Sex: 86 / F (units (unknown) date) unknown) (unknown) (no (unknown) (unknown) Allergies (units (unkn own) date) unknown) (unknown) (no (unknown) (unknown) Allergy/AdvReac (units (unknown) date) Type Severity unknown) Reaction Status Date / Time (unknown) (no (unknown) (unknown) Also denies (units (un known) date) double vision or unknown) any other neurological concerns related to this (unknown) (no (unknown) (unknown) Anemia (units (unkno wn) date) unknown) (unknown) (no (unknown) (unknown) Approved by: (units (u nknown) date) Aviva Rincon M.D. unknown) on 04/07/2022 at 13:26 ? (unknown) (no (unknown) (unknown) Approved by: (units (u nknown) date) Aviva Rincon M.D. unknown) on 04/07/2022 at 13:27 ? (unknown) (no (unknown) (unknown) Approved by: (units (u nknown) date) Aviva Rincon M.D. unknown) on 04/07/2022 at 13:29 ? (unknown) (no (unknown) (unknown) Blood Pressure (units (unknown) date) 175/79 H unknown) (unknown) (no (unknown) (unknown) Blood Pressure (units (unknown) date) 179/84 H unknown) (unknown) (no (unknown) (unknown) Bones and teeth:? (units (unknown) date) Orbital goldstein are unknown) intact.? Sinus goldstein show no fracture or (unknown) (no (unknown) (unknown) Bones:? No (units (unk nown) date) fractures or unknown) dislocations.? Visualized superior ribs are intact.? (unknown) (no (unknown) (unknown) Brain:? No (units (unk nown) date) intracranial unknown) bleeds or masses.? There is cerebral volume loss for (unknown) (no (unknown) (unknown) Brother Age: 86 (units (unknown) date) Heart disease unknown) (unknown) (no (unknown) (unknown) COMPARISON:? (units (u nknown) date) [facility], unknown) CT, CT CERVICAL SPINE WO [facility], 04/07/2022, 12:58.? (unknown) (no (unknown) (unknown) COMPARISON:? (units (u nknown) date) [facility], unknown) CT, CT FACIAL BONES WO [facility], 04/07/2022, 12:58.? (unknown) (no (unknown) (unknown) CSF spaces:? (units (u nknown) date) Basal cisterns are unknown) patent.? No extra-axial fluid collections.? The (unknown) (no (unknown) (unknown) CT Cervical (units (un known) date) Spine: unknown) (unknown) (no (unknown) (unknown) CT Face: (units (unkno wn) date) unknown) (unknown) (no (unknown) (unknown) CT cervical spine (units (unknown) date) wo con Stat unknown) (unknown) (no (unknown) (unknown) CT facial bones (units (unknown) date) wo con Stat unknown) (unknown) (no (unknown) (unknown) CT head/brain wo (units (unknown) date) con Stat unknown) (unknown) (no (unknown) (unknown) CT scan - head: (units (unknown) date) unknown) (unknown) (no (unknown) (unknown) Cardiovascular: (units (unknown) date) No chest pain or unknown) palpitations (unknown) (no (unknown) (unknown) Cataracts, (units (unk nown) date) bilateral unknown) (Unknown) (unknown) (no (unknown) (unknown) Chest film, urine (units (unknown) date) POC, CBC CMP and unknown) ECG were ordered to rule out other possible (unknown) (no (unknown) (unknown) Chest: Lungs (units (u nknown) date) CTAB, no rales, unknown) rhonchi or wheezes. ?? (unknown) (no (unknown) (unknown) Chief Complaint: (units (unknown) date) Fall unknown) (unknown) (no (unknown) (unknown) Course (units (unkno wn) date) unknown) (unknown) (no (unknown) (unknown) : 1935 (units (unknown) date) Acct:[id number] unknown) (unknown) (no (unknown) (unknown) Date of Service: (units (unknown) date) 04/07/22 unknown) (unknown) (no (unknown) (unknown) Departure (units (unkn own) date) unknown) (unknown) (no (unknown) (unknown) Dictated by: (units (u nknown) date) Aviva Rincon M.D. unknown) on 04/07/2022 at 13:24 ? ? (unknown) (no (unknown) (unknown) Dictated by: (units (u nknown) date) Aviva Rincon M.D. unknown) on 04/07/2022 at 13:26 ? ? (unknown) (no (unknown) (unknown) Dictated by: (units (u nknown) date) Aviva Rincon M.D. unknown) on 04/07/2022 at 13:28 ? ? 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 ?? (unknown) (no (unknown) (unknown) Eyes: PERRLA, (units ( unknown) date) EOM's full, unknown) conjunctivae clear. ? (unknown) (no (unknown) (unknown) FINDINGS:? (units (unk nown) date) unknown) (unknown) (no (unknown) (unknown) Face: Has (units (unkn own) date) swelling and unknown) erythema to the nasal bridge. Also appears to be a (unknown) (no (unknown) (unknown) Family History (units (unknown) date) (Reviewed 03/15/22 unknown) @ 11:18 by Natan Waldron DO) (unknown) (no (unknown) (unknown) Father (units (unknown) date) No problems noted. unknown) (unknown) (no (unknown) (unknown) Further (units (unkno wn) date) collection of HPI unknown) reveals history of hypertension atrial fibrillation (unknown) (no (unknown) (unknown) GERD (units (unkno wn) date) (gastroesophageal unknown) reflux disease) (Unknown) (unknown) (no (unknown) (unknown) Gastrointestinal: (units (unknown) date) No nausea or unknown) vomiting (unknown) (no (unknown) (unknown) Gastrointestinal: (units (unknown) date) Soft; NT; ND; Pos unknown) BS with Neg. rebound tenderness. No scars or (unknown) (no (unknown) (unknown) General (units (unkno wn) date) unknown) (unknown) (no (unknown) (unknown) General: No (units (un known) date) fever, chills or unknown) fatigue. (unknown) (no (unknown) (unknown) General: normal (units (unknown) date) appearance, well unknown) developed, well nourished, alert, and awake. (unknown) (no (unknown) (unknown) HEENT: Facial (units ( unknown) date) pain swelling and unknown) bruising after fall (unknown) (no (unknown) (unknown) HPI - Fall (units (unk nown) date) unknown) (unknown) (no (unknown) (unknown) HPI Narrative: (units (unknown) date) unknown) (unknown) (no (unknown) (unknown) Head: (units (unkno wn) date) Normocephalic, no unknown) lesions. (unknown) (no (unknown) (unknown) Heart: RRR, no (units (unknown) date) murmurs, rubs or unknown) gallops. (unknown) (no (unknown) (unknown) History of (units (unk nown) date) Present Illness unknown) (unknown) (no (unknown) (unknown) Home Medications (units (unknown) date) unknown) (unknown) (no (unknown) (unknown) Hospital, CT, CT (units (unknown) date) FACIAL BONES WO unknown) CON, 04/07/2022, 12:58. (unknown) (no (unknown) (unknown) Hospital, CT, CT (units (unknown) date) HEAD/BRAIN WO CON, unknown) 04/07/2022, 12:58. (unknown) (no (unknown) (unknown) Hx of cataract (units (unknown) date) surgery (-2015) unknown) (unknown) (no (unknown) (unknown) Hyperlipemia (units (u nknown) date) (Unknown) unknown) (unknown) (no (unknown) (unknown) Hypertension (units (u nknown) date) (Unknown) unknown) (unknown) (no (unknown) (unknown) I find this (units (un known) date) patient to be unknown) medically disabled and qualified for disabled (unknown) (no (unknown) (unknown) IMPRESSION:? No (units (unknown) date) cervical fracture. unknown) (unknown) (no (unknown) (unknown) IMPRESSION:? (units (u nknown) date) unknown) (unknown) (no (unknown) (unknown) INDICATIONS:? (units ( unknown) date) fall face first on unknown) blood thinners (unknown) (no (unknown) (unknown) Image quality:? (units (unknown) date) Excellent.? unknown) (unknown) (no (unknown) (unknown) Imaging Data (units (u nknown) date) unknown) (unknown) (no (unknown) (unknown) Initial Vital (units ( unknown) date) Signs unknown) (unknown) (no (unknown) (unknown) Initial Vital (units ( unknown) date) Signs: unknown) (unknown) (no (unknown) (unknown) [facility] (units (unknown) date) [address] [place] [address] unknown) [place] [address] (unknown) (no (unknown) (unknown) [place] (units (unkno wn) date) unknown) (unknown) (no (unknown) (unknown) Ketorolac (units (unkn own) date) Tromethamine unknown) (Ketorolac 30 Mg/Ml Vial) 30 mg IV NOW ONE (unknown) (no (unknown) (unknown) Knee pain (units (unkn own) date) unknown) (unknown) (no (unknown) (unknown) Label Comments: (units (unknown) date) unknown) (unknown) (no (unknown) (unknown) Left knee pain (units (unknown) date) unknown) (unknown) (no (unknown) (unknown) Low back pain (units ( unknown) date) unknown) (unknown) (no (unknown) (unknown) MDM - Fall (units (unk nown) date) unknown) (unknown) (no (unknown) (unknown) MDM Narrative (units ( unknown) date) unknown) (unknown) (no (unknown) (unknown) Medical History (units (unknown) date) (Reviewed 03/15/22 unknown) @ 11:18 by Natan Waldron DO) (unknown) (no (unknown) (unknown) Medical decision (units (unknown) date) making narrative: unknown) (unknown) (no (unknown) (unknown) Medication (units (unk nown) date) Instructions unknown) Recorded Confirmed (unknown) (no (unknown) (unknown) Medication (units (unk nown) date) Instructions unknown) Recorded (unknown) (no (unknown) (unknown) Mitral (units (unkno wn) date) regurgitation unknown) (Unknown) (unknown) (no (unknown) (unknown) Mode of arrival: (units (unknown) date) EMS unknown) (unknown) (no (unknown) (unknown) Mother (units (unknown) date) No problems noted. unknown) (unknown) (no (unknown) (unknown) Multilevel (units (unk nown) date) unknown) (unknown) (no (unknown) (unknown) Musculoskeletal: (units (unknown) date) No pain in muscles unknown) or joints, no limitation of range of motion, (unknown) (no (unknown) (unknown) Narrative (units (unkn own) date) unknown) (unknown) (no (unknown) (unknown) Narrative: (units (unk nown) date) unknown) (unknown) (no (unknown) (unknown) Nasal bone with (units (unknown) date) possible nasal unknown) septal fracture.? (unknown) (no (unknown) (unknown) Neuro: (units (unkno wn) date) Physiological, no unknown) localizing findings, No pain to palpation of neck, CN3 (unknown) (no (unknown) (unknown) Neurological: (units ( unknown) date) Awake, alert and unknown) in not apparent distress. No Headaches, changes (unknown) (no (unknown) (unknown) No Action (units (unkn own) date) unknown) (unknown) (no (unknown) (unknown) No Known Drug (units ( unknown) date) Allergies Allergy unknown) Verified 03/15/22 10:39 (unknown) (no (unknown) (unknown) Noncontrast 2.5 (units (unknown) date) mm thick axial unknown) images acquired from the mandible through the (unknown) (no (unknown) (unknown) Noncontrast 3 mm (units (unknown) date) thick sections unknown) acquired from the skull base to the T4 level.? (unknown) (no (unknown) (unknown) Noncontrast 4.5 (units (unknown) date) mm thick angled unknown) axial sections acquired from the foramen magnum (unknown) (no (unknown) (unknown) Not in acute (units (u nknown) date) distress. ? 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 CT (units (unknown) date) CERVICAL SPINE WO unknown) CON (unknown) (no (unknown) (unknown) PROCEDURE:? CT (units (unknown) date) FACIAL BONES WO unknown) CON (unknown) (no (unknown) (unknown) PROCEDURE:? CT (units (unknown) date) HEAD/BRAIN WO CON unknown) (unknown) (no (unknown) (unknown) PSYCHIATRIC: The (units (unknown) date) mood is good, no unknown) blunted affect. Speech is clear. Thought (unknown) (no (unknown) (unknown) Parking Permit... (units (unknown) date) #1 ea 02/08/22 unknown) (unknown) (no (unknown) (unknown) Patient History (units (unknown) date) unknown) (unknown) (no (unknown) (unknown) Patient is an (units ( unknown) date) 86-year-old female unknown) who presents to the emergency room today with (unknown) (no (unknown) (unknown) Patient: (units (unkno wn) date) Dana Pillai M unknown) MR#: [id number] (unknown) (no (unknown) (unknown) Natan Waldron, (units (unknown) date) DO [Primary Care unknown) Provider] (unknown) (no (unknown) (unknown) Physical Exam: ? (units (unknown) date) unknown) (unknown) (no (unknown) (unknown) Prescriptions: (units (unknown) date) unknown) (unknown) (no (unknown) (unknown) Previous Rx's (units ( unknown) date) unknown) (unknown) (no (unknown) (unknown) Pulse Oximetry 97 (units (unknown) date) unknown) (unknown) (no (unknown) (unknown) Pulse Oximetry 98 (units (unknown) date) unknown) (unknown) (no (unknown) (unknown) Pulse Rate 67 (units ( unknown) date) unknown) (unknown) (no (unknown) (unknown) Pulse Rate 96 H (units (unknown) date) 04/07/22 12:53 unknown) (unknown) (no (unknown) (unknown) Pulse Rate 96 H (units (unknown) date) 73 unknown) (unknown) (no (unknown) (unknown) Qty: 0 (units (unkno wn) date) unknown) (unknown) (no (unknown) (unknown) R.O.S.: (units (unkno wn) date) unknown) (unknown) (no (unknown) (unknown) Radiologist's (units ( unknown) date) Impression: unknown) (unknown) (no (unknown) (unknown) Referrals: (units (unk nown) date) unknown) (unknown) (no (unknown) (unknown) Related Data (units (u nknown) date) unknown) (unknown) (no (unknown) (unknown) Respiratory: No (units (unknown) date) S.O.B. unknown) (unknown) (no (unknown) (unknown) Review of Systems (units (unknown) date) unknown) (unknown) (no (unknown) (unknown) Rx Instructions: (units (unknown) date) unknown) (unknown) (no (unknown) (unknown) Sagittal (units (unkno wn) date) unknown) (unknown) (no (unknown) (unknown) See Rx (units (unkno wn) date) Instructions unknown) .Route .MEDSUPPLY Qty: 1 0RF (unknown) (no (unknown) (unknown) Signed By: (units (unk nown) date) unknown) (unknown) (no (unknown) (unknown) Sinuses:? (units (unkn own) date) Scattered fluid is unknown) present within the ethmoid air cells. (unknown) (no (unknown) (unknown) Sinuses:? (units (unkn own) date) Visualized sinuses unknown) demonstrate ethmoid mucosal thickening. (unknown) (no (unknown) (unknown) Skin: No rash or (units (unknown) date) associated unknown) abnormalities (unknown) (no (unknown) (unknown) Skin: Normal, no (units (unknown) date) rashes, no lesions unknown) noted. ?? (unknown) (no (unknown) (unknown) Skull and face:? (units (unknown) date) Calvarium appears unknown) intact.? There is comminuted nasal bone (unknown) (no (unknown) (unknown) Smoking Status: (units (unknown) date) Never smoker unknown) (unknown) (no (unknown) (unknown) Social History (units (unknown) date) unknown) (unknown) (no (unknown) (unknown) Soft tissues:? No (units (unknown) date) edema, masses, or unknown) fluid collections.? No enlarged lymph (unknown) (no (unknown) (unknown) Soft tissues:? (units (unknown) date) Prevertebral soft unknown) tissues are normal in thickness.? No (unknown) (no (unknown) (unknown) Source: EMS (units (un known) date) unknown) (unknown) (no (unknown) (unknown) Stated Complaint: (units (unknown) date) Trip/Fall face unknown) first,on eliquis,no loc,mod trauma (unknown) (no (unknown) (unknown) Status post right (units (unknown) date) breast lumpectomy unknown) (-1966) (unknown) (no (unknown) (unknown) Stop: 04/07/22 (units (unknown) date) 13:41 unknown) (unknown) (no (unknown) (unknown) Substance Use (units ( unknown) date) Type: does not use unknown) (unknown) (no (unknown) (unknown) Superficial (units (un known) date) laceration unknown) (unknown) (no (unknown) (unknown) Surgical History (units (unknown) date) (Reviewed 03/15/22 unknown) @ 11:18 by Natan Waldron DO) (unknown) (no (unknown) (unknown) TECHNIQUE:? (units (un known) date) unknown) (unknown) (no (unknown) (unknown) Temperature 97.6 (units (unknown) date) F unknown) (unknown) (no (unknown) (unknown) Temperature (units (un known) date) unknown) (unknown) (no (unknown) (unknown) There is a slight (units (unknown) date) offset appearance unknown) of the nasal septum.? Overlying soft tissue (unknown) (no (unknown) (unknown) There is (units (unkno wn) date) comminuted nasal unknown) bone fracture with overlying soft tissue edema.? There (unknown) (no (unknown) (unknown) Urinary (units (unkno wn) date) incontinence unknown) (Unknown) (unknown) (no (unknown) (unknown) Vascular:? (units (unk nown) date) Visualized unknown) vascular structures appear normal in the absence of (unknown) (no (unknown) (unknown) Visualized (units (unk nown) date) portions of the unknown) skull base and auditory canals are intact.? (unknown) (no (unknown) (unknown) Vital Signs - 8 (units (unknown) date) hr unknown) (unknown) (no (unknown) (unknown) Vital Signs (units (un known) date) unknown) (unknown) (no (unknown) (unknown) Vital signs: (units (u nknown) date) unknown) (unknown) (no (unknown) (unknown) Well adult exam (units (unknown) date) unknown) (unknown) (no (unknown) (unknown) [GARLIC] ##0 (units (u nknown) date) 12/26/16 03/15/22 unknown) (unknown) (no (unknown) (unknown) [GARLIC] (units (unkno wn) date) unknown) (unknown) (no (unknown) (unknown) a comminuted (units (u nknown) date) nasal bone and a unknown) possible nondisplaced nasal septal fracture. (unknown) (no (unknown) (unknown) according to (units (u nknown) date) unknown) (unknown) (no (unknown) (unknown) age, with (units (unkn own) date) unknown) (unknown) (no (unknown) (unknown) alcohol intake (units (unknown) date) frequency: 0-2 unknown) drinks per day (unknown) (no (unknown) (unknown) alcohol intake: (units (unknown) date) current unknown) (unknown) (no (unknown) (unknown) amlodipine 5 mg (units (unknown) date) tablet 5 mg PO unknown) DAILY 02/17/18 03/15/22 (unknown) (no (unknown) (unknown) amlodipine 5 mg (units (unknown) date) tablet unknown) (unknown) (no (unknown) (unknown) and coronal (units (un known) date) reformats were unknown) then constructed.? For radiation dose reduction, the (unknown) (no (unknown) (unknown) and mild anemia. (units (unknown) date) CT scan of the unknown) head was negative but face CT was positive for (unknown) (no (unknown) (unknown) apixaban 5 mg (units ( unknown) date) tablet (Eliquis) 5 unknown) mg PO BID #180 tabs 10/12/20 (unknown) (no (unknown) (unknown) apply to single (units (unknown) date) elbow, wrist or unknown) hand; for hand includes palm/fingers/back of (unknown) (no (unknown) (unknown) artery (units (unkno wn) date) atherosclerosis.? unknown) (unknown) (no (unknown) (unknown) carotid (units (unkno wn) date) unknown) (unknown) (no (unknown) (unknown) cholecalciferol (units (unknown) date) (vitamin D3) 1,000 unknown) unit capsule (unknown) (no (unknown) (unknown) cholecalciferol (units (unknown) date) (vitamin D3) 25 unknown) 1,000 unit PO DAILY 02/17/18 03/15/22 (unknown) (no (unknown) (unknown) complaint facial (units (unknown) date) pain status post unknown) fall this morning at about 11:00 a.m.. (unknown) (no (unknown) (unknown) complaint of face (units (unknown) date) pain after a fall. unknown) States she fell this morning at about 1 (unknown) (no (unknown) (unknown) contrast.? Bony (units (unknown) date) unknown) (unknown) (no (unknown) (unknown) dapsone 25 mg (units ( unknown) date) tablet 25 mg PO unknown) .COMPLEX 08/20/18 03/15/22 (unknown) (no (unknown) (unknown) dapsone 25 mg (units ( unknown) date) tablet unknown) (unknown) (no (unknown) (unknown) deformity.? (units (un known) date) unknown) (unknown) (no (unknown) (unknown) degenerative (units (u nknown) date) changes are unknown) present. (unknown) (no (unknown) (unknown) diclofenac sodium (units (unknown) date) 1 % topical gel 2 unknown) g topical ONCE arthritis pain 10/12/20 (unknown) (no (unknown) (unknown) diclofenac sodium (units (unknown) date) [Voltaren] 1 % gel unknown) (unknown) (no (unknown) (unknown) edema is (units (unkno wn) date) unknown) (unknown) (no (unknown) (unknown) etiologies that (units (unknown) date) could be related unknown) to the fall. ECG shows a first-degree AV block (unknown) (no (unknown) (unknown) fall. Also admits (units (unknown) date) to history of unknown) hypertension, mild anemia and atrial (unknown) (no (unknown) (unknown) fall. Last fall (units (unknown) date) was about 5 years unknown) ago. Denies ever passing out and falling. (unknown) (no (unknown) (unknown) fibrillation. (units ( unknown) date) Takes Eliquis and unknown) blood pressure medications. (unknown) (no (unknown) (unknown) following was (units ( unknown) date) used:? automated unknown) exposure control, adjustment of mA and/or kV (unknown) (no (unknown) (unknown) following (units (unkn own) date) unknown) (unknown) (no (unknown) (unknown) for Individuals. (units (unknown) date) unknown) (unknown) (no (unknown) (unknown) fractures or (units (u nknown) date) subluxation.? unknown) Zygomatic arches are intact.? Pterygoid plates are (unknown) (no (unknown) (unknown) fractures.? (units (un known) date) unknown) (unknown) (no (unknown) (unknown) frontal (units (unkno wn) date) unknown) (unknown) (no (unknown) (unknown) further workup or (units (unknown) date) interventions in unknown) that regard. (unknown) (no (unknown) (unknown) hand (units (unkno wn) date) unknown) (unknown) (no (unknown) (unknown) hematomas.? No (units (unknown) date) apical unknown) pneumothoraces.? Mild fluid is noted in the posterior (unknown) (no (unknown) (unknown) in the posterior (units (unknown) date) oropharynx.? unknown) Visualized portions of the mandible demonstrate no (unknown) (no (unknown) (unknown) in vision or (units (u nknown) date) other related unknown) neurological concerns. (unknown) (no (unknown) (unknown) intact.? (units (unkno wn) date) unknown) (unknown) (no (unknown) (unknown) is noted (units (unkno wn) date) unknown) (unknown) (no (unknown) (unknown) is (units (unkno wn) date) unknown) (unknown) (no (unknown) (unknown) losartan 100 mg (units (unknown) date) tablet 100 mg PO unknown) DAILY #90 tabs 08/20/18 (unknown) (no (unknown) (unknown) losartan 100 mg (units (unknown) date) tablet unknown) (unknown) (no (unknown) (unknown) major deformities (units (unknown) date) noted on Visual unknown) Inspection. (unknown) (no (unknown) (unknown) matter chronic (units (unknown) date) small vessel unknown) ischemic changes.? There is intracranial internal (unknown) (no (unknown) (unknown) mcg (1,000 unit) (units (unknown) date) capsule unknown) (unknown) (no (unknown) (unknown) metoprolol (units (unk nown) date) tartrate 50 MG unknown) tablet (unknown) (no (unknown) (unknown) metoprolol (units (unk nown) date) tartrate 50 mg unknown) tablet 50 mg PO BID #180 tabs 06/10/17 (unknown) (no (unknown) (unknown) no paresthesia or (units (unknown) date) numbness. ?? unknown) (unknown) (no (unknown) (unknown) nodes.? No soft (units (unknown) date) unknown) (unknown) (no (unknown) (unknown) oropharynx. (units (un known) date) unknown) (unknown) (no (unknown) (unknown) paravertebral (units ( unknown) date) unknown) (unknown) (no (unknown) (unknown) parking as (units (unkn own) date) indicated and unknown) signed on the Accompanying Disabled Parking Application (unknown) (no (unknown) (unknown) patient size.? (units (unknown) date) unknown) (unknown) (no (unknown) (unknown) patient (units (unkno wn) date) unknown) (unknown) (no (unknown) (unknown) present.? Mild (units (unknown) date) fluid is noted in unknown) the posterior oropharynx. (unknown) (no (unknown) (unknown) process is (units (unk nown) date) linear, thought unknown) content is appropriate. The voice is without (unknown) (no (unknown) (unknown) release 24 hr (units ( unknown) date) unknown) (unknown) (no (unknown) (unknown) resultant (units (unkno wn) date) ventricular and unknown) sulcal prominence.? There are periventricular and deep (unknown) (no (unknown) (unknown) secretions in the (units (unknown) date) bilateral nares. unknown) Entire nasal bridge is tender to palpation. (unknown) (no (unknown) (unknown) shift of the (units (u nknown) date) nasal bridge unknown) slightly to the right. There is also bloody (unknown) (no (unknown) (unknown) significant (units (un known) date) inflection. unknown) (unknown) (no (unknown) (unknown) simvastatin 20 mg (units (unknown) date) tablet 20 mg PO HS unknown) #90 tabs 11/16/21 (unknown) (no (unknown) (unknown) simvastatin 20 mg (units (unknown) date) tablet unknown) (unknown) (no (unknown) (unknown) sinuses, with (units ( unknown) date) coronal and unknown) sagittal reformatting.? For radiation dose reduction, (unknown) (no (unknown) (unknown) size.? (units (unkno wn) date) unknown) (unknown) (no (unknown) (unknown) slight offset (units (u nknown) date) appearance of the unknown) nasal septum suggestive of fracture.? Mild fluid (unknown) (no (unknown) (unknown) substance use (units ( unknown) date) type: does not use unknown) (unknown) (no (unknown) (unknown) the 1st step. Has (units (unknown) date) fallen in the past unknown) in each fall was related to a trip or (unknown) (no (unknown) (unknown) the (units (unkno wn) date) unknown) (unknown) (no (unknown) (unknown) tissue (units (unkno wn) date) lacerations or unknown) debris.? (unknown) (no (unknown) (unknown) to the (units (unkno wn) date) unknown) (unknown) (no (unknown) (unknown) tolterodine 2 mg (units (unknown) date) capsule,extended 2 unknown) mg PO DAILY #90 caps 09/11/21 (unknown) (no (unknown) (unknown) tolterodine 2 mg (units (unknown) date) capsule,extended unknown) release 24hr (unknown) (no (unknown) (unknown) vascular foramina (units (unknown) date) and canals are unknown) intact.? (unknown) (no (unknown) (unknown) ventricles are (units (unknown) date) symmetric in size unknown) and shape.? (unknown) (no (unknown) (unknown) vertex, with (units (u nknown) date) coronal and unknown) sagittal reformats.? For radiation dose reduction, the (unknown) (no (unknown) (unknown) was used:? (units (unk nown) date) automated exposure unknown) control, adjustment of mA and/or kV according to (unknown) (no (unknown) (unknown) white (units (unkno wn) date) unknown) (unknown) (no (unknown) (unknown) with a sinus (units (u nknown) date) rhythm. ECG was unknown) reviewed by and is okay with no Result panel 23 (unknown) (no (unknown) (unknown) (no value) (units (unk nown) date) unknown) (unknown) (no (unknown) (unknown) (DME) Parking (units ( unknown) date) Permit... unknown) (unknown) (no (unknown) (unknown) (Voltaren) #100 (units (unknown) date) grams unknown) (unknown) (no (unknown) (unknown) *If you do not (units (unknown) date) have a primary unknown) care provider please contact the [facility] (unknown) (no (unknown) (unknown) *Please continue (units (unknown) date) to take your unknown) regular medications as directed. (unknown) (no (unknown) (unknown) *Please follow up (units (unknown) date) with your primary unknown) care provider in 2-3 days, call for an (unknown) (no (unknown) (unknown) *Return to (units (unk nown) date) Emergency unknown) Department if you should have any new, worsening or (unknown) (no (unknown) (unknown) *What to do: (units (u nknown) date) unknown) (unknown) (no (unknown) (unknown) *You have been (units (unknown) date) diagnosed with unknown) fracture to your nasal bone. I have referred her (unknown) (no (unknown) (unknown) 04/07/22 12:51 (units (unknown) date) unknown) (unknown) (no (unknown) (unknown) 04/07/22 (units (unkno wn) date) unknown) (unknown) (no (unknown) (unknown) 1 PO every other (units (unknown) date) day unknown) (unknown) (no (unknown) (unknown) 1,000 unit PO (units ( unknown) date) DAILY unknown) (unknown) (no (unknown) (unknown) 1. No acute (units (un known) date) intracranial unknown) process. (unknown) (no (unknown) (unknown) 100 mg PO DAILY (units (unknown) date) Qty: 90 1RF unknown) (unknown) (no (unknown) (unknown) 12 intact. ?? (units ( unknown) date) unknown) (unknown) (no (unknown) (unknown) 12:53 04/07/22 (units (unknown) date) unknown) (unknown) (no (unknown) (unknown) 12:54 04/07/22 (units (unknown) date) unknown) (unknown) (no (unknown) (unknown) 12:54 (units (unkno wn) date) unknown) (unknown) (no (unknown) (unknown) 12:55 04/07/22 (units (unknown) date) unknown) (unknown) (no (unknown) (unknown) 12:55 (units (unkno wn) date) unknown) (unknown) (no (unknown) (unknown) 1:00 a.m. while (units (unknown) date) she was walking unknown) into her she had. Fall was because she missed (unknown) (no (unknown) (unknown) 2 g TOP ONCE Qty: (units (unknown) date) 100 5RF unknown) (unknown) (no (unknown) (unknown) 2 mg PO DAILY (units ( unknown) date) Qty: 90 3RF unknown) (unknown) (no (unknown) (unknown) 2. Moderate (units (un known) date) atrophy and unknown) chronic microvascular ischemic changes. (unknown) (no (unknown) (unknown) 20 mg PO HS Qty: (units (unknown) date) 90 1RF unknown) (unknown) (no (unknown) (unknown) 25 mg PO .COMPLEX (units (unknown) date) unknown) (unknown) (no (unknown) (unknown) 3. Comminuted (units ( unknown) date) nasal bone and unknown) possibly nondisplaced nasal septal fracture.? (unknown) (no (unknown) (unknown) [id number] (units (unkno wn) date) unknown) (unknown) (no (unknown) (unknown) 5 mg PO BID Qty: (units (unknown) date) 180 1RF unknown) (unknown) (no (unknown) (unknown) 5 mg PO DAILY (units ( unknown) date) unknown) (unknown) (no (unknown) (unknown) 50 mg PO BID Qty: (units (unknown) date) 180 3RF unknown) (unknown) (no (unknown) (unknown) ? (units (unkno wn) date) unknown) (unknown) (no (unknown) (unknown) Activity (units (unkno wn) date) Restrictions/Addit unknown) ional Instructions: (unknown) (no (unknown) (unknown) Age/Sex: 86 / F (units (unknown) date) unknown) (unknown) (no (unknown) (unknown) Allergies (units (unkn own) date) unknown) (unknown) (no (unknown) (unknown) Allergy/AdvReac (units (unknown) date) Type Severity unknown) Reaction Status Date / Time (unknown) (no (unknown) (unknown) Also denies (units (un known) date) double vision or unknown) any other neurological concerns related to this (unknown) (no (unknown) (unknown) Anemia (units (unkno wn) date) unknown) (unknown) (no (unknown) (unknown) Approved by: (units (u nknown) date) Aviva Rincon M.D. unknown) on 04/07/2022 at 13:26 ? (unknown) (no (unknown) (unknown) Approved by: (units (u nknown) date) Aviva Rincon M.D. unknown) on 04/07/2022 at 13:27 ? (unknown) (no (unknown) (unknown) Approved by: (units (u nknown) date) Aviva Rincon M.D. unknown) on 04/07/2022 at 13:29 ? (unknown) (no (unknown) (unknown) Blood Pressure (units (unknown) date) 175/79 H unknown) (unknown) (no (unknown) (unknown) Blood Pressure (units (unknown) date) 179/84 H unknown) (unknown) (no (unknown) (unknown) Bones and teeth:? (units (unknown) date) Orbital goldstein are unknown) intact.? Sinus goldstein show no fracture or (unknown) (no (unknown) (unknown) Bones:? No (units (unk nown) date) fractures or unknown) dislocations.? Visualized superior ribs are intact.? (unknown) (no (unknown) (unknown) Brain:? No (units (unk nown) date) intracranial unknown) bleeds or masses.? There is cerebral volume loss for (unknown) (no (unknown) (unknown) Brother Age: 86 (units (unknown) date) Heart disease unknown) (unknown) (no (unknown) (unknown) COMPARISON:? (units (u nknown) date) [facility], unknown) CT, CT CERVICAL SPINE WO CON, 04/07/2022, 12:58.? (unknown) (no (unknown) (unknown) COMPARISON:? (units (u nknown) date) [facility], unknown) CT, CT FACIAL BONES WO CON, 04/07/2022, 12:58.? (unknown) (no (unknown) (unknown) CSF spaces:? (units (u nknown) date) Basal cisterns are unknown) patent.? No extra-axial fluid collections.? The (unknown) (no (unknown) (unknown) CT Cervical (units (un known) date) Spine: unknown) (unknown) (no (unknown) (unknown) CT Face: (units (unkno wn) date) unknown) (unknown) (no (unknown) (unknown) CT cervical spine (units (unknown) date) wo con Stat unknown) (unknown) (no (unknown) (unknown) CT facial bones (units (unknown) date) wo con Stat unknown) (unknown) (no (unknown) (unknown) CT head/brain wo (units (unknown) date) con Stat unknown) (unknown) (no (unknown) (unknown) CT scan - head: (units (unknown) date) unknown) (unknown) (no (unknown) (unknown) Cardiovascular: (units (unknown) date) No chest pain or unknown) palpitations (unknown) (no (unknown) (unknown) Cataracts, (units (unk nown) date) bilateral unknown) (Unknown) (unknown) (no (unknown) (unknown) Chest film, urine (units (unknown) date) POC, CBC CMP and unknown) ECG were ordered to rule out other possible (unknown) (no (unknown) (unknown) Chest: Lungs (units (u nknown) date) CTAB, no rales, unknown) rhonchi or wheezes. ?? (unknown) (no (unknown) (unknown) Chief Complaint: (units (unknown) date) Fall unknown) (unknown) (no (unknown) (unknown) Clinical (units (unkno wn) date) Impression: unknown) (unknown) (no (unknown) (unknown) Course (units (unkno wn) date) unknown) (unknown) (no (unknown) (unknown) : 1935 (units (unknown) date) Acct:[id number] unknown) (unknown) (no (unknown) (unknown) Date of Service: (units (unknown) date) 04/07/22 unknown) (unknown) (no (unknown) (unknown) Departure (units (unkn own) date) unknown) (unknown) (no (unknown) (unknown) Dictated by: (units (u nknown) date) Aviva Rincon M.D. unknown) on 04/07/2022 at 13:24 ? ? (unknown) (no (unknown) (unknown) Dictated by: (units (u nknown) date) Aviva Rincon M.D. unknown) on 04/07/2022 at 13:26 ? ? (unknown) (no (unknown) (unknown) Dictated by: (units (u nknown) date) Aviva Rincon M.D. unknown) on 04/07/2022 at 13:28 ? ? (unknown) (no (unknown) (unknown) Discharge Plan (units (unknown) date) unknown) (unknown) (no (unknown) (unknown) Discontinued (units (u nknown) date) Medications unknown) (unknown) (no (unknown) (unknown) ED Orders (units (unkn own) date) unknown) (unknown) (no (unknown) (unknown) ENT. The doctor (units (unknown) date) is Dr. Daniel In unknown) gland. 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 ?? (unknown) (no (unknown) (unknown) Eyes: PERRLA, (units ( unknown) date) EOM's full, unknown) conjunctivae clear. ? (unknown) (no (unknown) (unknown) FINDINGS:? (units (unk nown) date) unknown) (unknown) (no (unknown) (unknown) Face: Has (units (unkn own) date) swelling and unknown) erythema to the nasal bridge. Also appears to be a (unknown) (no (unknown) (unknown) Family History (units (unknown) date) (Reviewed 03/15/22 unknown) @ 11:18 by Natan Waldron DO) (unknown) (no (unknown) (unknown) Father (units (unknown) date) No problems noted. unknown) (unknown) (no (unknown) (unknown) Further (units (unkno wn) date) collection of HPI unknown) reveals history of hypertension atrial fibrillation (unknown) (no (unknown) (unknown) GERD (units (unkno wn) date) (gastroesophageal unknown) reflux disease) (Unknown) (unknown) (no (unknown) (unknown) Gastrointestinal: (units (unknown) date) No nausea or unknown) vomiting (unknown) (no (unknown) (unknown) Gastrointestinal: (units (unknown) date) Soft; NT; ND; Pos unknown) BS with Neg. rebound tenderness. No scars or (unknown) (no (unknown) (unknown) General (units (unkno wn) date) unknown) (unknown) (no (unknown) (unknown) General: No (units (un known) date) fever, chills or unknown) fatigue. (unknown) (no (unknown) (unknown) General: normal (units (unknown) date) appearance, well unknown) developed, well nourished, alert, and awake. (unknown) (no (unknown) (unknown) HEENT: Facial (units ( unknown) date) pain swelling and unknown) bruising after fall (unknown) (no (unknown) (unknown) HPI - Fall (units (unk nown) date) unknown) (unknown) (no (unknown) (unknown) HPI Narrative: (units (unknown) date) unknown) (unknown) (no (unknown) (unknown) Head: (units (unkno wn) date) Normocephalic, no unknown) lesions. (unknown) (no (unknown) (unknown) Heart: RRR, no (units (unknown) date) murmurs, rubs or unknown) gallops. (unknown) (no (unknown) (unknown) History of (units (unk nown) date) Present Illness unknown) (unknown) (no (unknown) (unknown) Home Medications (units (unknown) date) unknown) (unknown) (no (unknown) (unknown) Hospital, CT, CT (units (unknown) date) FACIAL BONES WO unknown) CON, 04/07/2022, 12:58. (unknown) (no (unknown) (unknown) Hospital, CT, CT (units (unknown) date) HEAD/BRAIN WO CON, unknown) 04/07/2022, 12:58. (unknown) (no (unknown) (unknown) Hx of cataract (units (unknown) date) surgery (-2014) unknown) (unknown) (no (unknown) (unknown) Hyperlipemia (units (u nknown) date) (Unknown) unknown) (unknown) (no (unknown) (unknown) Hypertension (units (u nknown) date) (Unknown) unknown) (unknown) (no (unknown) (unknown) I did not reveal (units (unknown) date) the concerning unknown) results in regards to infectious etiology. (unknown) (no (unknown) (unknown) I find this (units (un known) date) patient to be unknown) medically disabled and qualified for disabled (unknown) (no (unknown) (unknown) IMPRESSION:? No (units (unknown) date) cervical fracture. unknown) (unknown) (no (unknown) (unknown) IMPRESSION:? (units (u nknown) date) unknown) (unknown) (no (unknown) (unknown) INDICATIONS:? (units ( unknown) date) fall face first on unknown) blood thinners (unknown) (no (unknown) (unknown) Image quality:? (units (unknown) date) Excellent.? unknown) (unknown) (no (unknown) (unknown) Imaging Data (units (u nknown) date) unknown) (unknown) (no (unknown) (unknown) Initial Vital (units ( unknown) date) Signs unknown) (unknown) (no (unknown) (unknown) Initial Vital (units ( unknown) date) Signs: unknown) (unknown) (no (unknown) (unknown) Instructions: How (units (unknown) date) to Prevent Falls unknown) (unknown) (no (unknown) (unknown) [facility] (units (unknown) date) [address] unknown) [place] [address] (unknown) (no (unknown) (unknown) [place] (units (unkno wn) date) unknown) (unknown) (no (unknown) (unknown) Ketorolac (units (unkn own) date) Tromethamine unknown) (Ketorolac 30 Mg/Ml Vial) 30 mg IV NOW ONE (unknown) (no (unknown) (unknown) Knee pain (units (unkn own) date) unknown) (unknown) (no (unknown) (unknown) Label Comments: (units (unknown) date) unknown) (unknown) (no (unknown) (unknown) Left knee pain (units (unknown) date) unknown) (unknown) (no (unknown) (unknown) Low back pain (units ( unknown) date) unknown) (unknown) (no (unknown) (unknown) MDM - Fall (units (unk nown) date) unknown) (unknown) (no (unknown) (unknown) MDM Narrative (units ( unknown) date) unknown) (unknown) (no (unknown) (unknown) Medical History (units (unknown) date) (Reviewed 03/15/22 unknown) @ 11:18 by Natan Waldron DO) (unknown) (no (unknown) (unknown) Medical decision (units (unknown) date) making narrative: unknown) (unknown) (no (unknown) (unknown) Medication (units (unk nown) date) Instructions unknown) Recorded Confirmed (unknown) (no (unknown) (unknown) Medication (units (unk nown) date) Instructions unknown) Recorded (unknown) (no (unknown) (unknown) Mitral (units (unkno wn) date) regurgitation unknown) (Unknown) (unknown) (no (unknown) (unknown) Mode of arrival: (units (unknown) date) EMS unknown) (unknown) (no (unknown) (unknown) Mother (units (unknown) date) No problems noted. unknown) (unknown) (no (unknown) (unknown) Multilevel (units (unk nown) date) unknown) (unknown) (no (unknown) (unknown) Musculoskeletal: (units (unknown) date) No pain in muscles unknown) or joints, no limitation of range of motion, (unknown) (no (unknown) (unknown) Narrative (units (unkn own) date) unknown) (unknown) (no (unknown) (unknown) Narrative: (units (unk nown) date) unknown) (unknown) (no (unknown) (unknown) Nasal bone (units (unk nown) date) fracture unknown) (unknown) (no (unknown) (unknown) Nasal bone with (units (unknown) date) possible nasal unknown) septal fracture.? (unknown) (no (unknown) (unknown) Neuro: (units (unkno wn) date) Physiological, no unknown) localizing findings, No pain to palpation of neck, CN3 (unknown) (no (unknown) (unknown) Neurological: (units ( unknown) date) Awake, alert and unknown) in not apparent distress. No Headaches, changes (unknown) (no (unknown) (unknown) No Action (units (unkn own) date) unknown) (unknown) (no (unknown) (unknown) No Known Drug (units ( unknown) date) Allergies Allergy unknown) Verified 03/15/22 10:39 (unknown) (no (unknown) (unknown) Noncontrast 2.5 (units (unknown) date) mm thick axial unknown) images acquired from the mandible through the (unknown) (no (unknown) (unknown) Noncontrast 3 mm (units (unknown) date) thick sections unknown) acquired from the skull base to the T4 level.? (unknown) (no (unknown) (unknown) Noncontrast 4.5 (units (unknown) date) mm thick angled unknown) axial sections acquired from the foramen magnum (unknown) (no (unknown) (unknown) Not in acute (units (u nknown) date) distress. ? 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 CT (units (unknown) date) CERVICAL SPINE WO unknown) CON (unknown) (no (unknown) (unknown) PROCEDURE:? CT (units (unknown) date) FACIAL BONES WO unknown) CON (unknown) (no (unknown) (unknown) PROCEDURE:? CT (units (unknown) date) HEAD/BRAIN WO CON unknown) (unknown) (no (unknown) (unknown) PSYCHIATRIC: The (units (unknown) date) mood is good, no unknown) blunted affect. Speech is clear. Thought (unknown) (no (unknown) (unknown) Parking Permit... (units (unknown) date) #1 ea 02/08/22 unknown) (unknown) (no (unknown) (unknown) Patient (units (unkno wn) date) Disposition: Home unknown) (unknown) (no (unknown) (unknown) Patient History (units (unknown) date) unknown) (unknown) (no (unknown) (unknown) Patient (units (unkno wn) date) discharged in unknown) refer to ENT. Patient also advised to contact her primary (unknown) (no (unknown) (unknown) Patient is an (units ( unknown) date) 86-year-old female unknown) who presents to the emergency room today with (unknown) (no (unknown) (unknown) Patient: (units (unkno wn) date) FreyaDana M unknown) MR#: [id number] (unknown) (no (unknown) (unknown) Natan Waldron, (units (unknown) date) DO [Primary Care unknown) Provider] (unknown) (no (unknown) (unknown) Physical Exam: ? (units (unknown) date) unknown) (unknown) (no (unknown) (unknown) Prescriptions: (units (unknown) date) unknown) (unknown) (no (unknown) (unknown) Previous Rx's (units ( unknown) date) unknown) (unknown) (no (unknown) (unknown) Pulse Oximetry 97 (units (unknown) date) unknown) (unknown) (no (unknown) (unknown) Pulse Oximetry 98 (units (unknown) date) unknown) (unknown) (no (unknown) (unknown) Pulse Rate 67 (units ( unknown) date) unknown) (unknown) (no (unknown) (unknown) Pulse Rate 96 H (units (unknown) date) 04/07/22 12:53 unknown) (unknown) (no (unknown) (unknown) Pulse Rate 96 H (units (unknown) date) 73 unknown) (unknown) (no (unknown) (unknown) Qty: 0 (units (unkno wn) date) unknown) (unknown) (no (unknown) (unknown) R.O.S.: (units (unkno wn) date) unknown) (unknown) (no (unknown) (unknown) Radiologist's (units ( unknown) date) Impression: unknown) (unknown) (no (unknown) (unknown) Referrals: (units (unk nown) date) unknown) (unknown) (no (unknown) (unknown) Related Data (units (u nknown) date) unknown) (unknown) (no (unknown) (unknown) Resource line at (units (unknown) date) [phone]. They unknown) will ask some questions about your medical (unknown) (no (unknown) (unknown) Respiratory: No (units (unknown) date) S.O.B. unknown) (unknown) (no (unknown) (unknown) Review of Systems (units (unknown) date) unknown) (unknown) (no (unknown) (unknown) Rx Instructions: (units (unknown) date) unknown) (unknown) (no (unknown) (unknown) Sagittal (units (unkno wn) date) unknown) (unknown) (no (unknown) (unknown) See Rx (units (unkno wn) date) Instructions unknown) .Route .MEDSULY Qty: 1 0RF (unknown) (no (unknown) (unknown) Signed By: (units (unk nown) date) unknown) (unknown) (no (unknown) (unknown) Sinuses:? (units (unkn own) date) Scattered fluid is unknown) present within the ethmoid air cells. (unknown) (no (unknown) (unknown) Sinuses:? (units (unkn own) date) Visualized sinuses unknown) demonstrate ethmoid mucosal thickening. (unknown) (no (unknown) (unknown) Skin: No rash or (units (unknown) date) associated unknown) abnormalities (unknown) (no (unknown) (unknown) Skin: Normal, no (units (unknown) date) rashes, no lesions unknown) noted. ?? (unknown) (no (unknown) (unknown) Skull and face:? (units (unknown) date) Calvarium appears unknown) intact.? There is comminuted nasal bone (unknown) (no (unknown) (unknown) Smoking Status: (units (unknown) date) Never smoker unknown) (unknown) (no (unknown) (unknown) Social History (units (unknown) date) unknown) (unknown) (no (unknown) (unknown) Soft tissues:? No (units (unknown) date) edema, masses, or unknown) fluid collections.? No enlarged lymph (unknown) (no (unknown) (unknown) Soft tissues:? (units (unknown) date) Prevertebral soft unknown) tissues are normal in thickness.? No (unknown) (no (unknown) (unknown) Source: EMS (units (un known) date) unknown) (unknown) (no (unknown) (unknown) Stated Complaint: (units (unknown) date) Trip/Fall face unknown) first,on eliquis,no loc,mod trauma (unknown) (no (unknown) (unknown) Status post right (units (unknown) date) breast lumpectomy unknown) (-1966) (unknown) (no (unknown) (unknown) Stop: 04/07/22 (units (unknown) date) 13:41 unknown) (unknown) (no (unknown) (unknown) Substance Use (units ( unknown) date) Type: does not use unknown) (unknown) (no (unknown) (unknown) Superficial (units (un known) date) laceration unknown) (unknown) (no (unknown) (unknown) Surgical History (units (unknown) date) (Reviewed 03/15/22 unknown) @ 11:18 by Natan Waldron DO) (unknown) (no (unknown) (unknown) TECHNIQUE:? (units (un known) date) unknown) (unknown) (no (unknown) (unknown) Temperature 97.6 (units (unknown) date) F unknown) (unknown) (no (unknown) (unknown) Temperature (units (un known) date) unknown) (unknown) (no (unknown) (unknown) There is a slight (units (unknown) date) offset appearance unknown) of the nasal septum.? Overlying soft tissue (unknown) (no (unknown) (unknown) There is (units (unkno wn) date) comminuted nasal unknown) bone fracture with overlying soft tissue edema.? There (unknown) (no (unknown) (unknown) Urinary (units (unkno wn) date) incontinence unknown) (Unknown) (unknown) (no (unknown) (unknown) Vascular:? (units (unk nown) date) Visualized unknown) vascular structures appear normal in the absence of (unknown) (no (unknown) (unknown) Visualized (units (unk nown) date) portions of the unknown) skull base and auditory canals are intact.? (unknown) (no (unknown) (unknown) Vital Signs - 8 (units (unknown) date) hr unknown) (unknown) (no (unknown) (unknown) Vital Signs (units (un known) date) unknown) (unknown) (no (unknown) (unknown) Vital signs: (units (u nknown) date) unknown) (unknown) (no (unknown) (unknown) Well adult exam (units (unknown) date) unknown) (unknown) (no (unknown) (unknown) [ ] New (units (unkno wn) date) medication unknown) prescriptions sent to your pharmacy: [ ] (unknown) (no (unknown) (unknown) [ ] New (units (unkno wn) date) medication written unknown) as a paper prescription (unknown) (no (unknown) (unknown) [ ] No new (units (unk nown) date) medications given unknown) (unknown) (no (unknown) (unknown) [GARLIC] ##0 (units (u nknown) date) 12/26/16 03/15/22 unknown) (unknown) (no (unknown) (unknown) [GARLIC] (units (unkno wn) date) unknown) (unknown) (no (unknown) (unknown) ] (units (unkno wn) date) unknown) (unknown) (no (unknown) (unknown) a comminuted (units (u nknown) date) nasal bone and a unknown) possible nondisplaced nasal septal fracture. (unknown) (no (unknown) (unknown) according to (units (u nknown) date) unknown) (unknown) (no (unknown) (unknown) age, with (units (unkn own) date) unknown) (unknown) (no (unknown) (unknown) alcohol intake (units (unknown) date) frequency: 0-2 unknown) drinks per day (unknown) (no (unknown) (unknown) alcohol intake: (units (unknown) date) current unknown) (unknown) (no (unknown) (unknown) amlodipine 5 mg (units (unknown) date) tablet 5 mg PO unknown) DAILY 02/17/18 03/15/22 (unknown) (no (unknown) (unknown) amlodipine 5 mg (units (unknown) date) tablet unknown) (unknown) (no (unknown) (unknown) and coronal (units (un known) date) reformats were unknown) then constructed.? For radiation dose reduction, the (unknown) (no (unknown) (unknown) and mild anemia. (units (unknown) date) CT scan of the unknown) head was negative but face CT was positive for (unknown) (no (unknown) (unknown) apixaban 5 mg (units ( unknown) date) tablet (Eliquis) 5 unknown) mg PO BID #180 tabs 10/12/20 (unknown) (no (unknown) (unknown) apply to single (units (unknown) date) elbow, wrist or unknown) hand; for hand includes palm/fingers/back of (unknown) (no (unknown) (unknown) appointment. Let (units (unknown) date) them know you were unknown) seen in the Emergency Department and that we (unknown) (no (unknown) (unknown) artery (units (unkno wn) date) atherosclerosis.? unknown) (unknown) (no (unknown) (unknown) ask that you be (units (unknown) date) seen in follow up. unknown) We will electronically transmit a record of (unknown) (no (unknown) (unknown) care provider for (units (unknown) date) any non emergent unknown) concerns. (unknown) (no (unknown) (unknown) carotid (units (unkno wn) date) unknown) (unknown) (no (unknown) (unknown) cholecalciferol (units (unknown) date) (vitamin D3) 1,000 unknown) unit capsule (unknown) (no (unknown) (unknown) cholecalciferol (units (unknown) date) (vitamin D3) 25 unknown) 1,000 unit PO DAILY 02/17/18 03/15/22 (unknown) (no (unknown) (unknown) complaint facial (units (unknown) date) pain status post unknown) fall this morning at about 11:00 a.m.. (unknown) (no (unknown) (unknown) complaint of face (units (unknown) date) pain after a fall. unknown) States she fell this morning at about 1 (unknown) (no (unknown) (unknown) concerning (units (unk nown) date) symptoms, such as unknown) [fever greater than 101 F, shaking chills, (unknown) (no (unknown) (unknown) contrast.? Bony (units (unknown) date) unknown) (unknown) (no (unknown) (unknown) dapsone 25 mg (units ( unknown) date) tablet 25 mg PO unknown) .COMPLEX 08/20/18 03/15/22 (unknown) (no (unknown) (unknown) dapsone 25 mg (units ( unknown) date) tablet unknown) (unknown) (no (unknown) (unknown) deformity.? (units (un known) date) unknown) (unknown) (no (unknown) (unknown) degenerative (units (u nknown) date) changes are unknown) present. (unknown) (no (unknown) (unknown) diclofenac sodium (units (unknown) date) 1 % topical gel 2 unknown) g topical ONCE arthritis pain 10/12/20 (unknown) (no (unknown) (unknown) diclofenac sodium (units (unknown) date) [Voltaren] 1 % gel unknown) (unknown) (no (unknown) (unknown) edema is (units (unkno wn) date) unknown) (unknown) (no (unknown) (unknown) etiologies that (units (unknown) date) could be related unknown) to the fall. ECG shows a first-degree AV block (unknown) (no (unknown) (unknown) fall. Also admits (units (unknown) date) to history of unknown) hypertension, mild anemia and atrial (unknown) (no (unknown) (unknown) fall. Last fall (units (unknown) date) was about 5 years unknown) ago. Denies ever passing out and falling. (unknown) (no (unknown) (unknown) fibrillation. (units ( unknown) date) Takes Eliquis and unknown) blood pressure medications. (unknown) (no (unknown) (unknown) following was (units ( unknown) date) used:? automated unknown) exposure control, adjustment of mA and/or kV (unknown) (no (unknown) (unknown) following (units (unkn own) date) unknown) (unknown) (no (unknown) (unknown) for Individuals. (units (unknown) date) unknown) (unknown) (no (unknown) (unknown) fractures or (units (u nknown) date) subluxation.? unknown) Zygomatic arches are intact.? Pterygoid plates are (unknown) (no (unknown) (unknown) fractures.? (units (un known) date) unknown) (unknown) (no (unknown) (unknown) frontal (units (unkno wn) date) unknown) (unknown) (no (unknown) (unknown) further workup or (units (unknown) date) interventions in unknown) that regard. Labs in blood in urine return. (unknown) (no (unknown) (unknown) hand (units (unkno wn) date) unknown) (unknown) (no (unknown) (unknown) hematomas.? No (units (unknown) date) apical unknown) pneumothoraces.? Mild fluid is noted in the posterior (unknown) (no (unknown) (unknown) history and help (units (unknown) date) get you set up unknown) with a doctor in the community. (unknown) (no (unknown) (unknown) in the posterior (units (unknown) date) oropharynx.? unknown) Visualized portions of the mandible demonstrate no (unknown) (no (unknown) (unknown) in vision or (units (u nknown) date) other related unknown) neurological concerns. (unknown) (no (unknown) (unknown) intact.? (units (unkno wn) date) unknown) (unknown) (no (unknown) (unknown) is noted (units (unkno wn) date) unknown) (unknown) (no (unknown) (unknown) is (units (unkno wn) date) unknown) (unknown) (no (unknown) (unknown) losartan 100 mg (units (unknown) date) tablet 100 mg PO unknown) DAILY #90 tabs 08/20/18 (unknown) (no (unknown) (unknown) losartan 100 mg (units (unknown) date) tablet unknown) (unknown) (no (unknown) (unknown) major deformities (units (unknown) date) noted on Visual unknown) Inspection. (unknown) (no (unknown) (unknown) matter chronic (units (unknown) date) small vessel unknown) ischemic changes.? There is intracranial internal (unknown) (no (unknown) (unknown) mcg (1,000 unit) (units (unknown) date) capsule unknown) (unknown) (no (unknown) (unknown) metoprolol (units (unk nown) date) tartrate 50 MG unknown) tablet (unknown) (no (unknown) (unknown) metoprolol (units (unk nown) date) tartrate 50 mg unknown) tablet 50 mg PO BID #180 tabs 06/10/17 (unknown) (no (unknown) (unknown) no paresthesia or (units (unknown) date) numbness. ?? unknown) (unknown) (no (unknown) (unknown) nodes.? No soft (units (unknown) date) unknown) (unknown) (no (unknown) (unknown) oropharynx. (units (un known) date) unknown) (unknown) (no (unknown) (unknown) paravertebral (units ( unknown) date) unknown) (unknown) (no (unknown) (unknown) parking as (units (unkn own) date) indicated and unknown) signed on the Accompanying Disabled Parking Application (unknown) (no (unknown) (unknown) patient size.? (units (unknown) date) unknown) (unknown) (no (unknown) (unknown) patient (units (unkno wn) date) unknown) (unknown) (no (unknown) (unknown) present.? Mild (units (unknown) date) fluid is noted in unknown) the posterior oropharynx. (unknown) (no (unknown) (unknown) process is (units (unk nown) date) linear, thought unknown) content is appropriate. The voice is without (unknown) (no (unknown) (unknown) release 24 hr (units ( unknown) date) unknown) (unknown) (no (unknown) (unknown) resultant (units (unkno wn) date) ventricular and unknown) sulcal prominence.? There are periventricular and deep (unknown) (no (unknown) (unknown) secretions in the (units (unknown) date) bilateral nares. unknown) Entire nasal bridge is tender to palpation. (unknown) (no (unknown) (unknown) shift of the (units (u nknown) date) nasal bridge unknown) slightly to the right. There is also bloody (unknown) (no (unknown) (unknown) significant (units (un known) date) inflection. unknown) (unknown) (no (unknown) (unknown) simvastatin 20 mg (units (unknown) date) tablet 20 mg PO HS unknown) #90 tabs 11/16/21 (unknown) (no (unknown) (unknown) simvastatin 20 mg (units (unknown) date) tablet unknown) (unknown) (no (unknown) (unknown) sinuses, with (units ( unknown) date) coronal and unknown) sagittal reformatting.? For radiation dose reduction, (unknown) (no (unknown) (unknown) size.? (units (unkno wn) date) unknown) (unknown) (no (unknown) (unknown) slight offset (units (u nknown) date) appearance of the unknown) nasal septum suggestive of fracture.? Mild fluid (unknown) (no (unknown) (unknown) substance use (units ( unknown) date) type: does not use unknown) (unknown) (no (unknown) (unknown) the 1st step. Has (units (unknown) date) fallen in the past unknown) in each fall was related to a trip or (unknown) (no (unknown) (unknown) the (units (unkno wn) date) unknown) (unknown) (no (unknown) (unknown) tissue (units (unkno wn) date) lacerations or unknown) debris.? (unknown) (no (unknown) (unknown) to ENT and (units (unk nown) date) suggest she unknown) follow-up with them. The ENT office is [facility] (unknown) (no (unknown) (unknown) to the (units (unkno wn) date) unknown) (unknown) (no (unknown) (unknown) today's note if (units (unknown) date) your PCP is in our unknown) system (unknown) (no (unknown) (unknown) tolterodine 2 mg (units (unknown) date) capsule,extended 2 unknown) mg PO DAILY #90 caps 09/11/21 (unknown) (no (unknown) (unknown) tolterodine 2 mg (units (unknown) date) capsule,extended unknown) release 24hr (unknown) (no (unknown) (unknown) vascular foramina (units (unknown) date) and canals are unknown) intact.? (unknown) (no (unknown) (unknown) ventricles are (units (unknown) date) symmetric in size unknown) and shape.? (unknown) (no (unknown) (unknown) vertex, with (units (u nknown) date) coronal and unknown) sagittal reformats.? For radiation dose reduction, the (unknown) (no (unknown) (unknown) was used:? (units (unk nown) date) automated exposure unknown) control, adjustment of mA and/or kV according to (unknown) (no (unknown) (unknown) white (units (unkno wn) date) unknown) (unknown) (no (unknown) (unknown) with a sinus (units (u nknown) date) rhythm. ECG was unknown) reviewed by and is okay with no (unknown) (no (unknown) (unknown) worsening pain, (units (unknown) date) persistent unknown) vomiting or other bothersome symptoms] Result panel 24 (unknown) (no (unknown) (unknown) (no value) (units (unk nown) date) unknown) (unknown) (no (unknown) (unknown) <Electronically (units (unknown) date) signed by Desmond unknown) Oleksandr Guallpa> (unknown) (no (unknown) (unknown) (DME) Parking (units ( unknown) date) Permit... unknown) (unknown) (no (unknown) (unknown) ([employer]) #100 (units (unknown) date) grams unknown) (unknown) (no (unknown) (unknown) *If you do not (units (unknown) date) have a primary unknown) care provider please contact the [facility] (unknown) (no (unknown) (unknown) *Please continue (units (unknown) date) to take your unknown) regular medications as directed. (unknown) (no (unknown) (unknown) *Please follow up (units (unknown) date) with your primary unknown) care provider in 2-3 days, call for an (unknown) (no (unknown) (unknown) *Return to (units (unk nown) date) Emergency unknown) Department if you should have any new, worsening or (unknown) (no (unknown) (unknown) *What to do: (units (u nknown) date) unknown) (unknown) (no (unknown) (unknown) *You have been (units (unknown) date) diagnosed with unknown) fracture to your nasal bone. I have referred her (unknown) (no (unknown) (unknown) 04/07/22 04/07/22 (units (unknown) date) Range/Units unknown) (unknown) (no (unknown) (unknown) 04/07/22 12:51 (units (unknown) date) unknown) (unknown) (no (unknown) (unknown) 04/07/22 12:54 (units (unknown) date) unknown) (unknown) (no (unknown) (unknown) 04/07/22 13:50 (units (unknown) date) unknown) (unknown) (no (unknown) (unknown) 04/07/22 13:58 (units (unknown) date) unknown) (unknown) (no (unknown) (unknown) 04/07/22 1541 (units ( unknown) date) unknown) (unknown) (no (unknown) (unknown) 04/07/22 (units (unkno wn) date) unknown) (unknown) (no (unknown) (unknown) 1 PO every other (units (unknown) date) day unknown) (unknown) (no (unknown) (unknown) 1,000 unit PO (units ( unknown) date) DAILY unknown) (unknown) (no (unknown) (unknown) 1. No acute (units (un known) date) intracranial unknown) process. (unknown) (no (unknown) (unknown) 100 mg PO DAILY (units (unknown) date) Qty: 90 1RF unknown) (unknown) (no (unknown) (unknown) 12 intact. ?? (units ( unknown) date) unknown) (unknown) (no (unknown) (unknown) 12:53 04/07/22 (units (unknown) date) unknown) (unknown) (no (unknown) (unknown) 12:54 04/07/22 (units (unknown) date) unknown) (unknown) (no (unknown) (unknown) 12:54 12:54 (units (un known) date) unknown) (unknown) (no (unknown) (unknown) 12:54 (units (unkno wn) date) unknown) (unknown) (no (unknown) (unknown) 12:55 04/07/22 (units (unknown) date) unknown) (unknown) (no (unknown) (unknown) 13:12 (units (unkno wn) date) unknown) (unknown) (no (unknown) (unknown) 13:14 04/07/22 (units (unknown) date) unknown) (unknown) (no (unknown) (unknown) 13:30 (units (unkno wn) date) unknown) (unknown) (no (unknown) (unknown) 14:00 04/07/22 (units (unknown) date) unknown) (unknown) (no (unknown) (unknown) 14:50 04/07/22 (units (unknown) date) unknown) (unknown) (no (unknown) (unknown) 14:51 04/07/22 (units (unknown) date) unknown) (unknown) (no (unknown) (unknown) 14:51 (units (unkno wn) date) unknown) (unknown) (no (unknown) (unknown) 15:00 (units (unkno wn) date) unknown) (unknown) (no (unknown) (unknown) 1:00 a.m. while (units (unknown) date) she was walking unknown) into her she had. Fall was because she missed (unknown) (no (unknown) (unknown) 2 g TOP ONCE Qty: (units (unknown) date) 100 5RF unknown) (unknown) (no (unknown) (unknown) 2 mg PO DAILY (units ( unknown) date) Qty: 90 3RF unknown) (unknown) (no (unknown) (unknown) 2. Moderate (units (un known) date) atrophy and unknown) chronic microvascular ischemic changes. (unknown) (no (unknown) (unknown) 20 mg PO HS Qty: (units (unknown) date) 90 1RF unknown) (unknown) (no (unknown) (unknown) 25 mg PO .COMPLEX (units (unknown) date) unknown) (unknown) (no (unknown) (unknown) 3. Comminuted (units ( unknown) date) nasal bone and unknown) possibly nondisplaced nasal septal fracture.? (unknown) (no (unknown) (unknown) [id number] (units (unkno wn) date) unknown) (unknown) (no (unknown) (unknown) 5 mg PO BID Qty: (units (unknown) date) 180 1RF unknown) (unknown) (no (unknown) (unknown) 5 mg PO DAILY (units ( unknown) date) unknown) (unknown) (no (unknown) (unknown) 50 mg PO BID Qty: (units (unknown) date) 180 3RF unknown) (unknown) (no (unknown) (unknown) ? (units (unkno wn) date) unknown) (unknown) (no (unknown) (unknown) ALT 14 (<35) IU/L (units (unknown) date) unknown) (unknown) (no (unknown) (unknown) AST 32 (14-36) (units (unknown) date) IU/L unknown) (unknown) (no (unknown) (unknown) Activity (units (unkno wn) date) Restrictions/Addit unknown) ional Instructions: (unknown) (no (unknown) (unknown) Age/Sex: 86 / F (units (unknown) date) unknown) (unknown) (no (unknown) (unknown) Albumin 3.8 (units (un known) date) (3.5-5.0) g/dL unknown) (unknown) (no (unknown) (unknown) Albumin/Globulin (units (unknown) date) Ratio 1.4 unknown) (1.0-2.8) (unknown) (no (unknown) (unknown) Alkaline (units (unkno wn) date) Phosphatase 36 L unknown) (38-126) U/L (unknown) (no (unknown) (unknown) Allergies (units (unkn own) date) unknown) (unknown) (no (unknown) (unknown) Allergy/AdvReac (units (unknown) date) Type Severity unknown) Reaction Status Date / Time (unknown) (no (unknown) (unknown) Also denies (units (un known) date) double vision or unknown) any other neurological concerns related to this (unknown) (no (unknown) (unknown) Anemia (units (unkno wn) date) unknown) (unknown) (no (unknown) (unknown) Approved by: (units (u nknown) date) Aviva Rincon M.D. unknown) on 04/07/2022 at 13:26 ? (unknown) (no (unknown) (unknown) Approved by: (units (u nknown) date) Aviva Rincon M.D. unknown) on 04/07/2022 at 13:27 ? (unknown) (no (unknown) (unknown) Approved by: (units (u nknown) date) Aviva Rincon M.D. unknown) on 04/07/2022 at 13:29 ? (unknown) (no (unknown) (unknown) BUN 18 H (7-17) (units (unknown) date) mg/dL unknown) (unknown) (no (unknown) (unknown) BUN/Creatinine (units (unknown) date) Ratio 23.7 H unknown) (6-22) (unknown) (no (unknown) (unknown) Baso # (Auto) 0 (units (unknown) date) (0-100) /uL unknown) (unknown) (no (unknown) (unknown) Baso % (Auto) 0.5 (units (unknown) date) (0-2) % unknown) (unknown) (no (unknown) (unknown) Bedside Urine (units ( unknown) date) Bilirubin - unknown) Negative (unknown) (no (unknown) (unknown) Bedside Urine (units ( unknown) date) Glucose Negative unknown) (unknown) (no (unknown) (unknown) Bedside Urine (units ( unknown) date) Ketone - Negative unknown) (unknown) (no (unknown) (unknown) Bedside Urine (units ( unknown) date) Leukocytes - unknown) Negative (unknown) (no (unknown) (unknown) Bedside Urine (units ( unknown) date) Nitrite - Negative unknown) (unknown) (no (unknown) (unknown) Bedside Urine (units ( unknown) date) Occult Blood - unknown) Negative (unknown) (no (unknown) (unknown) Bedside Urine (units ( unknown) date) Protein - Negative unknown) (unknown) (no (unknown) (unknown) Bedside Urine (units ( unknown) date) Urobilinogen +/- unknown) 1mg (unknown) (no (unknown) (unknown) Bedside Urine pH (units (unknown) date) 7.0 unknown) (unknown) (no (unknown) (unknown) Blood Pressure (units (unknown) date) 175/79 H unknown) (unknown) (no (unknown) (unknown) Blood Pressure (units (unknown) date) 179/84 H unknown) (unknown) (no (unknown) (unknown) Blood Pressure (units (unknown) date) 183/81 H unknown) (unknown) (no (unknown) (unknown) Blood Pressure (units (unknown) date) 193/81 H unknown) (unknown) (no (unknown) (unknown) Blood Pressure (units (unknown) date) unknown) (unknown) (no (unknown) (unknown) Bones and teeth:? (units (unknown) date) Orbital goldstein are unknown) intact.? Sinus goldstein show no fracture or (unknown) (no (unknown) (unknown) Bones:? No (units (unk nown) date) fractures or unknown) dislocations.? Visualized superior ribs are intact.? (unknown) (no (unknown) (unknown) Brain:? No (units (unk nown) date) intracranial unknown) bleeds or masses.? There is cerebral volume loss for (unknown) (no (unknown) (unknown) Brother Age: 86 (units (unknown) date) Heart disease unknown) (unknown) (no (unknown) (unknown) CBC Auto Diff (units ( unknown) date) [Complete Blood unknown) Count AUTO DIFF] Stat (unknown) (no (unknown) (unknown) CMP (units (unkno wn) date) [Comprehensive unknown) Metabolic Panel] Stat (unknown) (no (unknown) (unknown) COMPARISON:? (units (u nknown) date) [facility], unknown) CT, CT CERVICAL SPINE WO CON, 04/07/2022, 12:58.? (unknown) (no (unknown) (unknown) COMPARISON:? (units (u nknown) date) [facility], unknown) CT, CT FACIAL BONES WO CON, 04/07/2022, 12:58.? (unknown) (no (unknown) (unknown) CSF spaces:? (units (u nknown) date) Basal cisterns are unknown) patent.? No extra-axial fluid collections.? The (unknown) (no (unknown) (unknown) CT Cervical (units (un known) date) Spine: unknown) (unknown) (no (unknown) (unknown) CT Face: (units (unkno wn) date) unknown) (unknown) (no (unknown) (unknown) CT cervical spine (units (unknown) date) wo con Stat unknown) (unknown) (no (unknown) (unknown) CT facial bones (units (unknown) date) wo con Stat unknown) (unknown) (no (unknown) (unknown) CT head/brain wo (units (unknown) date) con Stat unknown) (unknown) (no (unknown) (unknown) CT scan - head: (units (unknown) date) unknown) (unknown) (no (unknown) (unknown) Calcium 8.7 (units (un known) date) (8.4-10.2) mg/dL unknown) (unknown) (no (unknown) (unknown) Carbon Dioxide 23 (units (unknown) date) (22-32) mmol/L unknown) (unknown) (no (unknown) (unknown) Cardiovascular: (units (unknown) date) No chest pain or unknown) palpitations (unknown) (no (unknown) (unknown) Cataracts, (units (unk nown) date) bilateral unknown) (Unknown) (unknown) (no (unknown) (unknown) Chest [XR chest (units (unknown) date) 2V] Stat unknown) (unknown) (no (unknown) (unknown) Chest film, urine (units (unknown) date) POC, CBC CMP and unknown) ECG were ordered to rule out other possible (unknown) (no (unknown) (unknown) Chest: Lungs (units (u nknown) date) CTAB, no rales, unknown) rhonchi or wheezes. ?? (unknown) (no (unknown) (unknown) Chief Complaint: (units (unknown) date) Fall unknown) (unknown) (no (unknown) (unknown) Chloride 106 (units (u nknown) date) (98-107) mmol/L unknown) (unknown) (no (unknown) (unknown) Clinical (units (unkno wn) date) Impression: unknown) (unknown) (no (unknown) (unknown) Course (units (unkno wn) date) unknown) (unknown) (no (unknown) (unknown) Creatinine 0.76 (units (unknown) date) (0.52-1.04) mg/dL unknown) (unknown) (no (unknown) (unknown) : 1935 (units (unknown) date) Acct:[id number] unknown) (unknown) (no (unknown) (unknown) Date of Service: (units (unknown) date) 04/07/22 unknown) (unknown) (no (unknown) (unknown) Departure (units (unkn own) date) unknown) (unknown) (no (unknown) (unknown) Dictated by: (units (u nknown) date) Aviva Rincon M.D. unknown) on 04/07/2022 at 13:24 ? ? (unknown) (no (unknown) (unknown) Dictated by: (units (u nknown) date) Aviva Rincon M.D. unknown) on 04/07/2022 at 13:26 ? ? (unknown) (no (unknown) (unknown) Dictated by: (units (u nknown) date) Aviva Rincon M.D. unknown) on 04/07/2022 at 13:28 ? ? (unknown) (no (unknown) (unknown) Discharge Plan (units (unknown) date) unknown) (unknown) (no (unknown) (unknown) Discontinued (units (u nknown) date) Medications unknown) (unknown) (no (unknown) (unknown) ED Orders (units (unkn own) date) unknown) (unknown) (no (unknown) (unknown) EKG-12 Lead Stat (units (unknown) date) unknown) (unknown) (no (unknown) (unknown) ENT. The doctor (units (unknown) date) is Dr. María Harmon. unknown) The office phone number is [phone]. 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 unknown) (Unknown) (unknown) (no (unknown) (unknown) Esterase (units (unkno wn) date) unknown) (unknown) (no (unknown) (unknown) Estimated GFR > (units (unknown) date) 60 (>60) mL/min unknown) (unknown) (no (unknown) (unknown) Evening primrose (units (unknown) date) PO DAILY 08/20/18 unknown) 03/15/22 (unknown) (no (unknown) (unknown) Evening primrose (units (unknown) date) unknown) (unknown) (no (unknown) (unknown) Exam Narrative: (units (unknown) date) unknown) (unknown) (no (unknown) (unknown) Exam (units (unkno wn) date) unknown) (unknown) (no (unknown) (unknown) Extremities: (units (u nknown) date) Warm, well unknown) perfused, FROM, no deformities, no edema. ?? (unknown) (no (unknown) (unknown) Eyes: PERRLA, (units ( unknown) date) EOM's full, unknown) conjunctivae clear. ? (unknown) (no (unknown) (unknown) FINDINGS:? (units (unk nown) date) unknown) (unknown) (no (unknown) (unknown) Face: Has (units (unkn own) date) swelling and unknown) erythema to the nasal bridge. Also appears to be a (unknown) (no (unknown) (unknown) Family History (units (unknown) date) (Reviewed 03/15/22 unknown) @ 11:18 by Natan Waldron DO) (unknown) (no (unknown) (unknown) Father (units (unknown) date) No problems noted. unknown) (unknown) (no (unknown) (unknown) Further (units (unkno wn) date) collection of HPI unknown) reveals history of hypertension atrial fibrillation (unknown) (no (unknown) (unknown) GERD (units (unkno wn) date) (gastroesophageal unknown) reflux disease) (Unknown) (unknown) (no (unknown) (unknown) Gastrointestinal: (units (unknown) date) No nausea or unknown) vomiting (unknown) (no (unknown) (unknown) Gastrointestinal: (units (unknown) date) Soft; NT; ND; Pos unknown) BS with Neg. rebound tenderness. No scars or (unknown) (no (unknown) (unknown) General (units (unkno wn) date) unknown) (unknown) (no (unknown) (unknown) General: No (units (un known) date) fever, chills or unknown) fatigue. (unknown) (no (unknown) (unknown) General: normal (units (unknown) date) appearance, well unknown) developed, well nourished, alert, and awake. (unknown) (no (unknown) (unknown) Globulin 2.8 (units (u nknown) date) (1.7-4.1) g/dL unknown) (unknown) (no (unknown) (unknown) Glucose 89 (units (unk nown) date) (80-110) mg/dL unknown) (unknown) (no (unknown) (unknown) HEENT: Facial (units ( unknown) date) pain swelling and unknown) bruising after fall (unknown) (no (unknown) (unknown) HPI - Fall (units (unk nown) date) unknown) (unknown) (no (unknown) (unknown) HPI Narrative: (units (unknown) date) unknown) (unknown) (no (unknown) (unknown) Hct 36.9 (36-46) (units (unknown) date) % unknown) (unknown) (no (unknown) (unknown) Head: (units (unkno wn) date) Normocephalic, no unknown) lesions. (unknown) (no (unknown) (unknown) Heart: RRR, no (units (unknown) date) murmurs, rubs or unknown) gallops. (unknown) (no (unknown) (unknown) Hgb 12.3 (units (unkno wn) date) (12.0-16.0) g/dL unknown) (unknown) (no (unknown) (unknown) History of (units (unk nown) date) Present Illness unknown) (unknown) (no (unknown) (unknown) Home Medications (units (unknown) date) unknown) (unknown) (no (unknown) (unknown) Hospital, CT, CT (units (unknown) date) FACIAL BONES WO unknown) CON, 04/07/2022, 12:58. (unknown) (no (unknown) (unknown) Hospital, CT, CT (units (unknown) date) HEAD/BRAIN WO CON, unknown) 04/07/2022, 12:58. (unknown) (no (unknown) (unknown) Hx of cataract (units (unknown) date) surgery () unknown) (unknown) (no (unknown) (unknown) Hyperlipemia (units (u nknown) date) (Unknown) unknown) (unknown) (no (unknown) (unknown) Hypertension (units (u nknown) date) (Unknown) unknown) (unknown) (no (unknown) (unknown) I did not reveal (units (unknown) date) the concerning unknown) results in regards to infectious etiology. (unknown) (no (unknown) (unknown) I find this (units (un known) date) patient to be unknown) medically disabled and qualified for disabled (unknown) (no (unknown) (unknown) IMPRESSION:? No (units (unknown) date) cervical fracture. unknown) (unknown) (no (unknown) (unknown) IMPRESSION:? (units (u nknown) date) unknown) (unknown) (no (unknown) (unknown) INDICATIONS:? (units ( unknown) date) fall face first on unknown) blood thinners (unknown) (no (unknown) (unknown) Image quality:? (units (unknown) date) Excellent.? unknown) (unknown) (no (unknown) (unknown) Imaging Data (units (u nknown) date) unknown) (unknown) (no (unknown) (unknown) Initial Vital (units ( unknown) date) Signs unknown) (unknown) (no (unknown) (unknown) Initial Vital (units ( unknown) date) Signs: unknown) (unknown) (no (unknown) (unknown) Instructions: How (units (unknown) date) to Prevent Falls unknown) (unknown) (no (unknown) (unknown) [facility] (units (unknown) date) [address] unknown) [place] [address] (unknown) (no (unknown) (unknown) [place] (units (unkno wn) date) unknown) (unknown) (no (unknown) (unknown) Ketorolac (units (unkn own) date) Tromethamine unknown) (Ketorolac 30 Mg/Ml Vial) 30 mg IV NOW ONE (unknown) (no (unknown) (unknown) Knee pain (units (unkn own) date) unknown) (unknown) (no (unknown) (unknown) Lab Data (units (unkno wn) date) unknown) (unknown) (no (unknown) (unknown) Lab Results (units (un known) date) unknown) (unknown) (no (unknown) (unknown) Label Comments: (units (unknown) date) unknown) (unknown) (no (unknown) (unknown) Labs: (units (unkno wn) date) unknown) (unknown) (no (unknown) (unknown) Last Admin: (units (un known) date) 04/07/22 13:46 unknown) Dose: 30 mg (unknown) (no (unknown) (unknown) Left knee pain (units (unknown) date) unknown) (unknown) (no (unknown) (unknown) Low back pain (units ( unknown) date) unknown) (unknown) (no (unknown) (unknown) Lymph # (Auto) (units (unknown) date) 1700 ([id number]) unknown) /uL (unknown) (no (unknown) (unknown) Lymph % (Auto) (units (unknown) date) 32.2 (25-40) % unknown) (unknown) (no (unknown) (unknown) MCH 30.6 (26-34) (units (unknown) date) PG unknown) (unknown) (no (unknown) (unknown) MCHC 33.3 (30-36) (units (unknown) date) % unknown) (unknown) (no (unknown) (unknown) MCV 91.9 (80-100) (units (unknown) date) fL unknown) (unknown) (no (unknown) (unknown) MDM - Fall (units (unk nown) date) unknown) (unknown) (no (unknown) (unknown) MDM Narrative (units ( unknown) date) unknown) (unknown) (no (unknown) (unknown) Medical History (units (unknown) date) (Reviewed 03/15/22 unknown) @ 11:18 by Natan Waldron DO) (unknown) (no (unknown) (unknown) Medical decision (units (unknown) date) making narrative: unknown) (unknown) (no (unknown) (unknown) Medication (units (unk nown) date) Instructions unknown) Recorded Confirmed (unknown) (no (unknown) (unknown) Medication (units (unk nown) date) Instructions unknown) Recorded (unknown) (no (unknown) (unknown) Mitral (units (unkno wn) date) regurgitation unknown) (Unknown) (unknown) (no (unknown) (unknown) Mode of arrival: (units (unknown) date) EMS unknown) (unknown) (no (unknown) (unknown) [place] # (Auto) 500 (units (unknown) date) (0-900) /uL unknown) (unknown) (no (unknown) (unknown) [place] % (Auto) 9.6 (units (unknown) date) (3-14) % unknown) (unknown) (no (unknown) (unknown) Mother (units (unknown) date) No problems noted. unknown) (unknown) (no (unknown) (unknown) Multilevel (units (unk nown) date) unknown) (unknown) (no (unknown) (unknown) Musculoskeletal: (units (unknown) date) No pain in muscles unknown) or joints, no limitation of range of motion, (unknown) (no (unknown) (unknown) Narrative (units (unkn own) date) unknown) (unknown) (no (unknown) (unknown) Narrative: (units (unk nown) date) unknown) (unknown) (no (unknown) (unknown) Nasal bone (units (unk nown) date) fracture unknown) (unknown) (no (unknown) (unknown) Nasal bone with (units (unknown) date) possible nasal unknown) septal fracture.? (unknown) (no (unknown) (unknown) Neuro: (units (unkno wn) date) Physiological, no unknown) localizing findings, No pain to palpation of neck, CN3 (unknown) (no (unknown) (unknown) Neurological: (units ( unknown) date) Awake, alert and unknown) in not apparent distress. No Headaches, changes (unknown) (no (unknown) (unknown) Neut # (Auto) (units ( unknown) date) 3100 ([id number]) unknown) /uL (unknown) (no (unknown) (unknown) Neut % (Auto) (units ( unknown) date) 57.0 (50-75) % unknown) (unknown) (no (unknown) (unknown) No Action (units (unkn own) date) unknown) (unknown) (no (unknown) (unknown) No Known Drug (units ( unknown) date) Allergies Allergy unknown) Verified 03/15/22 10:39 (unknown) (no (unknown) (unknown) Noncontrast 2.5 (units (unknown) date) mm thick axial unknown) images acquired from the mandible through the (unknown) (no (unknown) (unknown) Noncontrast 3 mm (units (unknown) date) thick sections unknown) acquired from the skull base to the T4 level.? (unknown) (no (unknown) (unknown) Noncontrast 4.5 (units (unknown) date) mm thick angled unknown) axial sections acquired from the foramen magnum (unknown) (no (unknown) (unknown) Not in acute (units (u nknown) date) distress. ? 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 CT (units (unknown) date) CERVICAL SPINE WO unknown) CON (unknown) (no (unknown) (unknown) PROCEDURE:? CT (units (unknown) date) FACIAL BONES WO unknown) CON (unknown) (no (unknown) (unknown) PROCEDURE:? CT (units (unknown) date) HEAD/BRAIN WO CON unknown) (unknown) (no (unknown) (unknown) PSYCHIATRIC: The (units (unknown) date) mood is good, no unknown) blunted affect. Speech is clear. Thought (unknown) (no (unknown) (unknown) Parking Permit... (units (unknown) date) #1 ea 02/08/22 unknown) (unknown) (no (unknown) (unknown) Patient (units (unkno wn) date) Disposition: Home unknown) (unknown) (no (unknown) (unknown) Patient History (units (unknown) date) unknown) (unknown) (no (unknown) (unknown) Patient (units (unkno wn) date) discharged in unknown) refer to ENT. Patient also advised to contact her primary (unknown) (no (unknown) (unknown) Patient is an (units ( unknown) date) 86-year-old female unknown) who presents to the emergency room today with (unknown) (no (unknown) (unknown) Patient: (units (unkno wn) date) Dana Pillai M unknown) MR#: [id number] (unknown) (no (unknown) (unknown) Natan Waldron, (units (unknown) date) DO [Primary Care unknown) Provider] (unknown) (no (unknown) (unknown) Physical Exam: ? (units (unknown) date) unknown) (unknown) (no (unknown) (unknown) Plt Count 169 (units ( unknown) date) (150-400) X103/uL unknown) (unknown) (no (unknown) (unknown) Potassium 4.3 (units ( unknown) date) (3.4-5.1) mmol/L unknown) (unknown) (no (unknown) (unknown) Prescriptions: (units (unknown) date) unknown) (unknown) (no (unknown) (unknown) Previous Rx's (units ( unknown) date) unknown) (unknown) (no (unknown) (unknown) Pulse Oximetry 96 (units (unknown) date) 95 unknown) (unknown) (no (unknown) (unknown) Pulse Oximetry 96 (units (unknown) date) 96 unknown) (unknown) (no (unknown) (unknown) Pulse Oximetry 97 (units (unknown) date) unknown) (unknown) (no (unknown) (unknown) Pulse Oximetry 98 (units (unknown) date) 98 unknown) (unknown) (no (unknown) (unknown) Pulse Oximetry 98 (units (unknown) date) unknown) (unknown) (no (unknown) (unknown) Pulse Rate 63 64 (units (unknown) date) unknown) (unknown) (no (unknown) (unknown) Pulse Rate 63 68 (units (unknown) date) unknown) (unknown) (no (unknown) (unknown) Pulse Rate 65 64 (units (unknown) date) unknown) (unknown) (no (unknown) (unknown) Pulse Rate 67 66 (units (unknown) date) unknown) (unknown) (no (unknown) (unknown) Pulse Rate 96 H (units (unknown) date) 04/07/22 12:53 unknown) (unknown) (no (unknown) (unknown) Pulse Rate 96 H (units (unknown) date) 73 unknown) (unknown) (no (unknown) (unknown) Qty: 0 (units (unkno wn) date) unknown) (unknown) (no (unknown) (unknown) R.O.S.: (units (unkno wn) date) unknown) (unknown) (no (unknown) (unknown) RBC 4.01 (units (unkno wn) date) (4.0-5.2) X106/uL unknown) (unknown) (no (unknown) (unknown) RDW 13.6 (units (unkno wn) date) (11.6-14.8) % unknown) (unknown) (no (unknown) (unknown) Radiologist's (units ( unknown) date) Impression: unknown) (unknown) (no (unknown) (unknown) Referrals: (units (unk nown) date) unknown) (unknown) (no (unknown) (unknown) Related Data (units (u nknown) date) unknown) (unknown) (no (unknown) (unknown) Resource line at (units (unknown) date) [phone]. They unknown) will ask some questions about your medical (unknown) (no (unknown) (unknown) Respiratory Rate (units (unknown) date) 22 unknown) (unknown) (no (unknown) (unknown) Respiratory Rate (units (unknown) date) 23 15 unknown) (unknown) (no (unknown) (unknown) Respiratory Rate (units (unknown) date) unknown) (unknown) (no (unknown) (unknown) Respiratory: No (units (unknown) date) S.O.B. unknown) (unknown) (no (unknown) (unknown) Result diagrams: (units (unknown) date) unknown) (unknown) (no (unknown) (unknown) Review of Systems (units (unknown) date) unknown) (unknown) (no (unknown) (unknown) Rx Instructions: (units (unknown) date) unknown) (unknown) (no (unknown) (unknown) Sagittal (units (unkno wn) date) unknown) (unknown) (no (unknown) (unknown) See Rx (units (unkno wn) date) Instructions unknown) .[facility] Qty: 1 0RF (unknown) (no (unknown) (unknown) Signed By: (units (unk nown) date) unknown) (unknown) (no (unknown) (unknown) Silver (units (unkno wn) date) Nitrate/Potassium unknown) Nitrate (Silver Nitrate Stick) 1 each TOP NOW ONE (unknown) (no (unknown) (unknown) Sinuses:? (units (unkn own) date) Scattered fluid is unknown) present within the ethmoid air cells. (unknown) (no (unknown) (unknown) Sinuses:? (units (unkn own) date) Visualized sinuses unknown) demonstrate ethmoid mucosal thickening. (unknown) (no (unknown) (unknown) Skin: No rash or (units (unknown) date) associated unknown) abnormalities (unknown) (no (unknown) (unknown) Skin: Normal, no (units (unknown) date) rashes, no lesions unknown) noted. ?? (unknown) (no (unknown) (unknown) Skull and face:? (units (unknown) date) Calvarium appears unknown) intact.? There is comminuted nasal bone (unknown) (no (unknown) (unknown) Smoking Status: (units (unknown) date) Never smoker unknown) (unknown) (no (unknown) (unknown) Social History (units (unknown) date) unknown) (unknown) (no (unknown) (unknown) Sodium 135 L (units (u nknown) date) (137-145) mmol/L unknown) (unknown) (no (unknown) (unknown) Soft tissues:? No (units (unknown) date) edema, masses, or unknown) fluid collections.? No enlarged lymph (unknown) (no (unknown) (unknown) Soft tissues:? (units (unknown) date) Prevertebral soft unknown) tissues are normal in thickness.? No (unknown) (no (unknown) (unknown) Source: EMS (units (un known) date) unknown) (unknown) (no (unknown) (unknown) Stated Complaint: (units (unknown) date) Trip/Fall face unknown) first,on eliquis,no loc,mod trauma (unknown) (no (unknown) (unknown) Status post right (units (unknown) date) breast lumpectomy unknown) () (unknown) (no (unknown) (unknown) Stop: 04/07/22 (units (unknown) date) 13:41 unknown) (unknown) (no (unknown) (unknown) Stop: 04/07/22 (units (unknown) date) 15:35 unknown) (unknown) (no (unknown) (unknown) Substance Use (units ( unknown) date) Type: does not use unknown) (unknown) (no (unknown) (unknown) Superficial (units (un known) date) laceration unknown) (unknown) (no (unknown) (unknown) Surgical History (units (unknown) date) (Reviewed 03/15/22 unknown) @ 11:18 by Natan Waldron DO) (unknown) (no (unknown) (unknown) TECHNIQUE:? (units (un known) date) unknown) (unknown) (no (unknown) (unknown) Temperature 97.6 (units (unknown) date) F unknown) (unknown) (no (unknown) (unknown) Temperature (units (un known) date) unknown) (unknown) (no (unknown) (unknown) There is a slight (units (unknown) date) offset appearance unknown) of the nasal septum.? Overlying soft tissue (unknown) (no (unknown) (unknown) There is (units (unkno wn) date) comminuted nasal unknown) bone fracture with overlying soft tissue edema.? There (unknown) (no (unknown) (unknown) Total Bilirubin (units (unknown) date) 0.8 (0.2-1.3) unknown) mg/dL (unknown) (no (unknown) (unknown) Total Protein 6.6 (units (unknown) date) (6.3-8.2) g/dL unknown) (unknown) (no (unknown) (unknown) Urinary (units (unkno wn) date) incontinence unknown) (Unknown) (unknown) (no (unknown) (unknown) Urine Dip (units (unkn own) date) unknown) (unknown) (no (unknown) (unknown) Urine Specific (units (unknown) date) [place] 1.015 unknown) (unknown) (no (unknown) (unknown) Vascular:? (units (unk nown) date) Visualized unknown) vascular structures appear normal in the absence of (unknown) (no (unknown) (unknown) Visualized (units (unk nown) date) portions of the unknown) skull base and auditory canals are intact.? (unknown) (no (unknown) (unknown) Vital Signs - 8 (units (unknown) date) hr unknown) (unknown) (no (unknown) (unknown) Vital Signs (units (un known) date) unknown) (unknown) (no (unknown) (unknown) Vital signs: (units (u nknown) date) unknown) (unknown) (no (unknown) (unknown) WBC 5.4 (units (unkno wn) date) (4.5-11.0) X103/uL unknown) (unknown) (no (unknown) (unknown) Well adult exam (units (unknown) date) unknown) (unknown) (no (unknown) (unknown) [ ] New (units (unkno wn) date) medication unknown) prescriptions sent to your pharmacy: [ ] (unknown) (no (unknown) (unknown) [ ] New (units (unkno wn) date) medication written unknown) as a paper prescription (unknown) (no (unknown) (unknown) [Embedded Image (units (unknown) date) Not Available] unknown) (unknown) (no (unknown) (unknown) [GARLIC] ##0 (units (u nknown) date) 12/26/16 03/15/22 unknown) (unknown) (no (unknown) (unknown) [GARLIC] (units (unkno wn) date) unknown) (unknown) (no (unknown) (unknown) [x] No new (units (unk nown) date) medications given unknown) (unknown) (no (unknown) (unknown) a comminuted (units (u nknown) date) nasal bone and a unknown) possible nondisplaced nasal septal fracture. (unknown) (no (unknown) (unknown) according to (units (u nknown) date) unknown) (unknown) (no (unknown) (unknown) age, with (units (unkn own) date) unknown) (unknown) (no (unknown) (unknown) alcohol intake (units (unknown) date) frequency: 0-2 unknown) drinks per day (unknown) (no (unknown) (unknown) alcohol intake: (units (unknown) date) current unknown) (unknown) (no (unknown) (unknown) amlodipine 5 mg (units (unknown) date) tablet 5 mg PO unknown) DAILY 02/17/18 03/15/22 (unknown) (no (unknown) (unknown) amlodipine 5 mg (units (unknown) date) tablet unknown) (unknown) (no (unknown) (unknown) and coronal (units (un known) date) reformats were unknown) then constructed.? For radiation dose reduction, the (unknown) (no (unknown) (unknown) and mild anemia. (units (unknown) date) CT scan of the unknown) head was negative but face CT was positive for (unknown) (no (unknown) (unknown) apixaban 5 mg (units ( unknown) date) tablet (Eliquis) 5 unknown) mg PO BID #180 tabs 10/12/20 (unknown) (no (unknown) (unknown) apply to single (units (unknown) date) elbow, wrist or unknown) hand; for hand includes palm/fingers/back of (unknown) (no (unknown) (unknown) appointment. Let (units (unknown) date) them know you were unknown) seen in the Emergency Department and that we (unknown) (no (unknown) (unknown) artery (units (unkno wn) date) atherosclerosis.? unknown) (unknown) (no (unknown) (unknown) ask that you be (units (unknown) date) seen in follow up. unknown) We will electronically transmit a record of (unknown) (no (unknown) (unknown) care provider for (units (unknown) date) any non emergent unknown) concerns. (unknown) (no (unknown) (unknown) carotid (units (unkno wn) date) unknown) (unknown) (no (unknown) (unknown) cholecalciferol (units (unknown) date) (vitamin D3) 1,000 unknown) unit capsule (unknown) (no (unknown) (unknown) cholecalciferol (units (unknown) date) (vitamin D3) 25 unknown) 1,000 unit PO DAILY 02/17/18 03/15/22 (unknown) (no (unknown) (unknown) complaint facial (units (unknown) date) pain status post unknown) fall this morning at about 11:00 a.m.. (unknown) (no (unknown) (unknown) complaint of face (units (unknown) date) pain after a fall. unknown) States she fell this morning at about 1 (unknown) (no (unknown) (unknown) concerning (units (unk nown) date) symptoms, such as unknown) [fever greater than 101 F, shaking chills, (unknown) (no (unknown) (unknown) contrast.? Bony (units (unknown) date) unknown) (unknown) (no (unknown) (unknown) dapsone 25 mg (units ( unknown) date) tablet 25 mg PO unknown) .COMPLEX 08/20/18 03/15/22 (unknown) (no (unknown) (unknown) dapsone 25 mg (units ( unknown) date) tablet unknown) (unknown) (no (unknown) (unknown) deformity.? (units (un known) date) unknown) (unknown) (no (unknown) (unknown) degenerative (units (u nknown) date) changes are unknown) present. (unknown) (no (unknown) (unknown) diclofenac sodium (units (unknown) date) 1 % topical gel 2 unknown) g topical ONCE arthritis pain 10/12/20 (unknown) (no (unknown) (unknown) diclofenac sodium (units (unknown) date) [Voltaren] 1 % gel unknown) (unknown) (no (unknown) (unknown) edema is (units (unkno wn) date) unknown) (unknown) (no (unknown) (unknown) etiologies that (units (unknown) date) could be related unknown) to the fall. ECG shows a first-degree AV block (unknown) (no (unknown) (unknown) fall. Also admits (units (unknown) date) to history of unknown) hypertension, mild anemia and atrial (unknown) (no (unknown) (unknown) fall. Last fall (units (unknown) date) was about 5 years unknown) ago. Denies ever passing out and falling. (unknown) (no (unknown) (unknown) fibrillation. (units ( unknown) date) Takes Eliquis and unknown) blood pressure medications. (unknown) (no (unknown) (unknown) following was (units ( unknown) date) used:? automated unknown) exposure control, adjustment of mA and/or kV (unknown) (no (unknown) (unknown) following (units (unkn own) date) unknown) (unknown) (no (unknown) (unknown) for Individuals. (units (unknown) date) unknown) (unknown) (no (unknown) (unknown) fractures or (units (u nknown) date) subluxation.? unknown) Zygomatic arches are intact.? Pterygoid plates are (unknown) (no (unknown) (unknown) fractures.? (units (un known) date) unknown) (unknown) (no (unknown) (unknown) frontal (units (unkno wn) date) unknown) (unknown) (no (unknown) (unknown) further workup or (units (unknown) date) interventions in unknown) that regard. Labs in blood in urine return. (unknown) (no (unknown) (unknown) hand (units (unkno wn) date) unknown) (unknown) (no (unknown) (unknown) hematomas.? No (units (unknown) date) apical unknown) pneumothoraces.? Mild fluid is noted in the posterior (unknown) (no (unknown) (unknown) history and help (units (unknown) date) get you set up unknown) with a doctor in the community. (unknown) (no (unknown) (unknown) in the posterior (units (unknown) date) oropharynx.? unknown) Visualized portions of the mandible demonstrate no (unknown) (no (unknown) (unknown) in vision or (units (u nknown) date) other related unknown) neurological concerns. (unknown) (no (unknown) (unknown) intact.? (units (unkno wn) date) unknown) (unknown) (no (unknown) (unknown) is noted (units (unkno wn) date) unknown) (unknown) (no (unknown) (unknown) is (units (unkno wn) date) unknown) (unknown) (no (unknown) (unknown) losartan 100 mg (units (unknown) date) tablet 100 mg PO unknown) DAILY #90 tabs 08/20/18 (unknown) (no (unknown) (unknown) losartan 100 mg (units (unknown) date) tablet unknown) (unknown) (no (unknown) (unknown) major deformities (units (unknown) date) noted on Visual unknown) Inspection. (unknown) (no (unknown) (unknown) matter chronic (units (unknown) date) small vessel unknown) ischemic changes.? There is intracranial internal (unknown) (no (unknown) (unknown) mcg (1,000 unit) (units (unknown) date) capsule unknown) (unknown) (no (unknown) (unknown) metoprolol (units (unk nown) date) tartrate 50 MG unknown) tablet (unknown) (no (unknown) (unknown) metoprolol (units (unk nown) date) tartrate 50 mg unknown) tablet 50 mg PO BID #180 tabs 06/10/17 (unknown) (no (unknown) (unknown) no paresthesia or (units (unknown) date) numbness. ?? unknown) (unknown) (no (unknown) (unknown) nodes.? No soft (units (unknown) date) unknown) (unknown) (no (unknown) (unknown) oropharynx. (units (un known) date) unknown) (unknown) (no (unknown) (unknown) paravertebral (units ( unknown) date) unknown) (unknown) (no (unknown) (unknown) parking as (units (unkn own) date) indicated and unknown) signed on the Accompanying Disabled Parking Application (unknown) (no (unknown) (unknown) patient size.? (units (unknown) date) unknown) (unknown) (no (unknown) (unknown) patient (units (unkno wn) date) unknown) (unknown) (no (unknown) (unknown) present.? Mild (units (unknown) date) fluid is noted in unknown) the posterior oropharynx. (unknown) (no (unknown) (unknown) process is (units (unk nown) date) linear, thought unknown) content is appropriate. The voice is without (unknown) (no (unknown) (unknown) release 24 hr (units ( unknown) date) unknown) (unknown) (no (unknown) (unknown) resultant (units (unkno wn) date) ventricular and unknown) sulcal prominence.? There are periventricular and deep (unknown) (no (unknown) (unknown) room if any (units (un known) date) emergent concerns unknown) arise. [ ] (unknown) (no (unknown) (unknown) secretions in the (units (unknown) date) bilateral nares. unknown) Entire nasal bridge is tender to palpation. (unknown) (no (unknown) (unknown) shift of the (units (u nknown) date) nasal bridge unknown) slightly to the right. There is also bloody (unknown) (no (unknown) (unknown) significant (units (un known) date) inflection. unknown) (unknown) (no (unknown) (unknown) simvastatin 20 mg (units (unknown) date) tablet 20 mg PO HS unknown) #90 tabs 11/16/21 (unknown) (no (unknown) (unknown) simvastatin 20 mg (units (unknown) date) tablet unknown) (unknown) (no (unknown) (unknown) sinuses, with (units ( unknown) date) coronal and unknown) sagittal reformatting.? For radiation dose reduction, (unknown) (no (unknown) (unknown) size.? (units (unkno wn) date) unknown) (unknown) (no (unknown) (unknown) slight offset (units (u nknown) date) appearance of the unknown) nasal septum suggestive of fracture.? Mild fluid (unknown) (no (unknown) (unknown) substance use (units ( unknown) date) type: does not use unknown) (unknown) (no (unknown) (unknown) suggest she take (units (unknown) date) [id number] unknown) ibuprofen or naproxen for pain. I also (unknown) (no (unknown) (unknown) suggest she use (units (unknown) date) ice to help with unknown) facial swelling and return to the emergency (unknown) (no (unknown) (unknown) the 1st step. Has (units (unknown) date) fallen in the past unknown) in each fall was related to a trip or (unknown) (no (unknown) (unknown) the (units (unkno wn) date) unknown) (unknown) (no (unknown) (unknown) tissue (units (unkno wn) date) lacerations or unknown) debris.? (unknown) (no (unknown) (unknown) to ENT and (units (unk nown) date) suggest she unknown) follow-up with them. The ENT office is [facility] (unknown) (no (unknown) (unknown) to the (units (unkno wn) date) unknown) (unknown) (no (unknown) (unknown) today's note if (units (unknown) date) your PCP is in our unknown) system (unknown) (no (unknown) (unknown) tolterodine 2 mg (units (unknown) date) capsule,extended 2 unknown) mg PO DAILY #90 caps 09/11/21 (unknown) (no (unknown) (unknown) tolterodine 2 mg (units (unknown) date) capsule,extended unknown) release 24hr (unknown) (no (unknown) (unknown) vascular foramina (units (unknown) date) and canals are unknown) intact.? (unknown) (no (unknown) (unknown) ventricles are (units (unknown) date) symmetric in size unknown) and shape.? (unknown) (no (unknown) (unknown) vertex, with (units (u nknown) date) coronal and unknown) sagittal reformats.? For radiation dose reduction, the (unknown) (no (unknown) (unknown) was used:? (units (unk nown) date) automated exposure unknown) control, adjustment of mA and/or kV according to (unknown) (no (unknown) (unknown) white (units (unkno wn) date) unknown) (unknown) (no (unknown) (unknown) with a sinus (units (u nknown) date) rhythm. ECG was unknown) reviewed by and is okay with no (unknown) (no (unknown) (unknown) worsening pain, (units (unknown) date) persistent unknown) vomiting or other bothersome symptoms] Result panel 25 (unknown) (no (unknown) (unknown) (no value) (units (unk nown) date) unknown) (unknown) (no (unknown) (unknown) <Desmond Guallpa, (units (unknown) date) JOHNNA - Last Filed: unknown) 04/07/22 15:41> (unknown) (no (unknown) (unknown) <Electronically (units (unknown) date) signed by Desmond unknown) Oleksandr Guallpa> (unknown) (no (unknown) (unknown) <Electronically (units (unknown) date) signed by Samantha Valadez unknown) Alcides D.O.> (unknown) (no (unknown) (unknown) <Electronically (units (unknown) date) signed by Samantha Valadez unknown) Alcides D.O.> (unknown) (no (unknown) (unknown) <Samantha Mcgrath, (units (unknown) date) DO - Last Filed: unknown) 04/08/22 07:33> (unknown) (no (unknown) (unknown) <cosigner> (units (unk nown) date) unknown) (unknown) (no (unknown) (unknown) (DME) Parking (units ( unknown) date) Permit... unknown) (unknown) (no (unknown) (unknown) (Voltaren) #100 (units (unknown) date) grams unknown) (unknown) (no (unknown) (unknown) *If you do not (units (unknown) date) have a primary unknown) care provider please contact the [facility] (unknown) (no (unknown) (unknown) *Please continue (units (unknown) date) to take your unknown) regular medications as directed. (unknown) (no (unknown) (unknown) *Please follow up (units (unknown) date) with your primary unknown) care provider in 2-3 days, call for an (unknown) (no (unknown) (unknown) *Return to (units (unk nown) date) Emergency unknown) Department if you should have any new, worsening or (unknown) (no (unknown) (unknown) *What to do: (units (u nknown) date) unknown) (unknown) (no (unknown) (unknown) *You have been (units (unknown) date) diagnosed with unknown) fracture to your nasal bone. I have referred her (unknown) (no (unknown) (unknown) 04/07/22 04/07/22 (units (unknown) date) Range/Units unknown) (unknown) (no (unknown) (unknown) 04/07/22 12:54 (units (unknown) date) unknown) (unknown) (no (unknown) (unknown) 04/07/22 1541 (units ( unknown) date) unknown) (unknown) (no (unknown) (unknown) 04/07/22 (units (unkno wn) date) unknown) (unknown) (no (unknown) (unknown) 04/08/22 0733 (units ( unknown) date) unknown) (unknown) (no (unknown) (unknown) 1 PO every other (units (unknown) date) day unknown) (unknown) (no (unknown) (unknown) 1,000 unit PO (units ( unknown) date) DAILY unknown) (unknown) (no (unknown) (unknown) 1. No acute (units (un known) date) intracranial unknown) process. (unknown) (no (unknown) (unknown) 100 mg PO DAILY (units (unknown) date) Qty: 90 1RF unknown) (unknown) (no (unknown) (unknown) 11:00 a.m. while (units (unknown) date) she was walking unknown) into her she had. Fall was because she missed (unknown) (no (unknown) (unknown) 12 intact. ?? (units ( unknown) date) unknown) (unknown) (no (unknown) (unknown) 12:53 04/07/22 (units (unknown) date) unknown) (unknown) (no (unknown) (unknown) 12:54 04/07/22 (units (unknown) date) unknown) (unknown) (no (unknown) (unknown) 12:54 12:54 (units (un known) date) unknown) (unknown) (no (unknown) (unknown) 12:54 (units (unkno wn) date) unknown) (unknown) (no (unknown) (unknown) 12:55 04/07/22 (units (unknown) date) unknown) (unknown) (no (unknown) (unknown) 13:12 (units (unkno wn) date) unknown) (unknown) (no (unknown) (unknown) 13:14 04/07/22 (units (unknown) date) unknown) (unknown) (no (unknown) (unknown) 13:30 (units (unkno wn) date) unknown) (unknown) (no (unknown) (unknown) 14:00 04/07/22 (units (unknown) date) unknown) (unknown) (no (unknown) (unknown) 14:50 04/07/22 (units (unknown) date) unknown) (unknown) (no (unknown) (unknown) 14:51 04/07/22 (units (unknown) date) unknown) (unknown) (no (unknown) (unknown) 14:51 (units (unkno wn) date) unknown) (unknown) (no (unknown) (unknown) 15:00 (units (unkno wn) date) unknown) (unknown) (no (unknown) (unknown) 2 g TOP ONCE Qty: (units (unknown) date) 100 5RF unknown) (unknown) (no (unknown) (unknown) 2 mg PO DAILY (units ( unknown) date) Qty: 90 3RF unknown) (unknown) (no (unknown) (unknown) 2. Moderate (units (un known) date) atrophy and unknown) chronic microvascular ischemic changes. (unknown) (no (unknown) (unknown) 20 mg PO HS Qty: (units (unknown) date) 90 1RF unknown) (unknown) (no (unknown) (unknown) 25 mg PO .COMPLEX (units (unknown) date) unknown) (unknown) (no (unknown) (unknown) 3. Comminuted (units ( unknown) date) nasal bone and unknown) possibly nondisplaced nasal septal fracture.? (unknown) (no (unknown) (unknown) [id number] (units (unkno wn) date) unknown) (unknown) (no (unknown) (unknown) 435. No acute ST (units (unknown) date) change noted. unknown) (unknown) (no (unknown) (unknown) 5 mg PO BID Qty: (units (unknown) date) 180 1RF unknown) (unknown) (no (unknown) (unknown) 5 mg PO DAILY (units ( unknown) date) unknown) (unknown) (no (unknown) (unknown) 50 mg PO BID Qty: (units (unknown) date) 180 3RF unknown) (unknown) (no (unknown) (unknown) ? (units (unkno wn) date) unknown) (unknown) (no (unknown) (unknown) ALT 14 (<35) IU/L (units (unknown) date) unknown) (unknown) (no (unknown) (unknown) AST 32 (14-36) (units (unknown) date) IU/L unknown) (unknown) (no (unknown) (unknown) Activity (units (unkno wn) date) Restrictions/Addit unknown) ional Instructions: (unknown) (no (unknown) (unknown) Age/Sex: 86 / F (units (unknown) date) unknown) (unknown) (no (unknown) (unknown) Albumin 3.8 (units (un known) date) (3.5-5.0) g/dL unknown) (unknown) (no (unknown) (unknown) Albumin/Globulin (units (unknown) date) Ratio 1.4 unknown) (1.0-2.8) (unknown) (no (unknown) (unknown) Alkaline (units (unkno wn) date) Phosphatase 36 L unknown) (38-126) U/L (unknown) (no (unknown) (unknown) Allergies (units (unkn own) date) unknown) (unknown) (no (unknown) (unknown) Allergy/AdvReac (units (unknown) date) Type Severity unknown) Reaction Status Date / Time (unknown) (no (unknown) (unknown) Also denies (units (un known) date) double vision or unknown) any other neurological concerns related to this (unknown) (no (unknown) (unknown) Anemia (units (unkno wn) date) unknown) (unknown) (no (unknown) (unknown) Approved by: (units (u nknown) date) Aviva Rincon M.D. unknown) on 04/07/2022 at 13:26 ? (unknown) (no (unknown) (unknown) Approved by: (units (u nknown) date) Aviva Rincon M.D. unknown) on 04/07/2022 at 13:27 ? (unknown) (no (unknown) (unknown) Approved by: (units (u nknown) date) Aviva Rincon M.D. unknown) on 04/07/2022 at 13:29 ? (unknown) (no (unknown) (unknown) Attestation: I (units (unknown) date) personally unknown) reviewed and interpreted this ECG as follows: (unknown) (no (unknown) (unknown) BUN 18 H (7-17) (units (unknown) date) mg/dL unknown) (unknown) (no (unknown) (unknown) BUN/Creatinine (units (unknown) date) Ratio 23.7 H unknown) (6-22) (unknown) (no (unknown) (unknown) Baso # (Auto) 0 (units (unknown) date) (0-100) /uL unknown) (unknown) (no (unknown) (unknown) Baso % (Auto) 0.5 (units (unknown) date) (0-2) % unknown) (unknown) (no (unknown) (unknown) Bedside Urine (units ( unknown) date) Bilirubin - unknown) Negative (unknown) (no (unknown) (unknown) Bedside Urine (units ( unknown) date) Glucose Negative unknown) (unknown) (no (unknown) (unknown) Bedside Urine (units ( unknown) date) Ketone - Negative unknown) (unknown) (no (unknown) (unknown) Bedside Urine (units ( unknown) date) Leukocytes - unknown) Negative (unknown) (no (unknown) (unknown) Bedside Urine (units ( unknown) date) Nitrite - Negative unknown) (unknown) (no (unknown) (unknown) Bedside Urine (units ( unknown) date) Occult Blood - unknown) Negative (unknown) (no (unknown) (unknown) Bedside Urine (units ( unknown) date) Protein - Negative unknown) (unknown) (no (unknown) (unknown) Bedside Urine (units ( unknown) date) Urobilinogen +/- unknown) 1mg (unknown) (no (unknown) (unknown) Bedside Urine pH (units (unknown) date) 7.0 unknown) (unknown) (no (unknown) (unknown) Blood Pressure (units (unknown) date) 175/79 H unknown) (unknown) (no (unknown) (unknown) Blood Pressure (units (unknown) date) 179/84 H unknown) (unknown) (no (unknown) (unknown) Blood Pressure (units (unknown) date) 183/81 H unknown) (unknown) (no (unknown) (unknown) Blood Pressure (units (unknown) date) 193/81 H unknown) (unknown) (no (unknown) (unknown) Blood Pressure (units (unknown) date) unknown) (unknown) (no (unknown) (unknown) Bones and teeth:? (units (unknown) date) Orbital goldstein are unknown) intact.? Sinus goldstein show no fracture or (unknown) (no (unknown) (unknown) Bones:? No (units (unk nown) date) fractures or unknown) dislocations.? Visualized superior ribs are intact.? (unknown) (no (unknown) (unknown) Brain:? No (units (unk nown) date) intracranial unknown) bleeds or masses.? There is cerebral volume loss for (unknown) (no (unknown) (unknown) Brother Age: 86 (units (unknown) date) Heart disease unknown) (unknown) (no (unknown) (unknown) COMPARISON:? (units (u nknown) date) [facility], unknown) CT, CT CERVICAL SPINE [facility], 04/07/2022, 12:58.? (unknown) (no (unknown) (unknown) COMPARISON:? (units (u nknown) date) [facility], unknown) CT, CT FACIAL BONES [facility], 04/07/2022, 12:58.? (unknown) (no (unknown) (unknown) CSF spaces:? (units (u nknown) date) Basal cisterns are unknown) patent.? No extra-axial fluid collections.? The (unknown) (no (unknown) (unknown) CT Cervical (units (un known) date) Spine: unknown) (unknown) (no (unknown) (unknown) CT Face: (units (unkno wn) date) unknown) (unknown) (no (unknown) (unknown) CT scan - head: (units (unknown) date) unknown) (unknown) (no (unknown) (unknown) Calcium 8.7 (units (un known) date) (8.4-10.2) mg/dL unknown) (unknown) (no (unknown) (unknown) Carbon Dioxide 23 (units (unknown) date) (22-32) mmol/L unknown) (unknown) (no (unknown) (unknown) Cardiovascular: (units (unknown) date) No chest pain or unknown) palpitations (unknown) (no (unknown) (unknown) Cataracts, (units (unk nown) date) bilateral unknown) (Unknown) (unknown) (no (unknown) (unknown) Chest film, urine (units (unknown) date) POC, CBC CMP and unknown) ECG were ordered to rule out other possible (unknown) (no (unknown) (unknown) Chest: Lungs (units (u nknown) date) CTAB, no rales, unknown) rhonchi or wheezes. ?? (unknown) (no (unknown) (unknown) Chief Complaint: (units (unknown) date) Fall unknown) (unknown) (no (unknown) (unknown) Chloride 106 (units (u nknown) date) (98-107) mmol/L unknown) (unknown) (no (unknown) (unknown) Clinical (units (unkno wn) date) Impression: unknown) (unknown) (no (unknown) (unknown) Cosign (units (unkno wn) date) unknown) (unknown) (no (unknown) (unknown) Course (units (unkno wn) date) unknown) (unknown) (no (unknown) (unknown) Creatinine 0.76 (units (unknown) date) (0.52-1.04) mg/dL unknown) (unknown) (no (unknown) (unknown) : 1935 (units (unknown) date) Acct:[id number] unknown) (unknown) (no (unknown) (unknown) Date of Service: (units (unknown) date) 04/07/22 unknown) (unknown) (no (unknown) (unknown) Departure (units (unkn own) date) unknown) (unknown) (no (unknown) (unknown) Dictated by: (units (u nknown) date) Aviva Rincon M.D. unknown) on 04/07/2022 at 13:24 ? ? (unknown) (no (unknown) (unknown) Dictated by: (units (u nknown) date) Aviva Rincon M.D. unknown) on 04/07/2022 at 13:26 ? ? (unknown) (no (unknown) (unknown) Dictated by: (units (u nknown) date) Aviva Rincon M.D. unknown) on 04/07/2022 at 13:28 ? ? (unknown) (no (unknown) (unknown) Discharge Plan (units (unknown) date) unknown) (unknown) (no (unknown) (unknown) Discontinued (units (u nknown) date) Medications unknown) (unknown) (no (unknown) (unknown) Documented By: NR (units (unknown) date) unknown) (unknown) (no (unknown) (unknown) Documented By: SB (units (unknown) date) unknown) (unknown) (no (unknown) (unknown) ECG Data (units (unkno wn) date) unknown) (unknown) (no (unknown) (unknown) ED Attending (units (u nknown) date) Cosignature unknown) Attestation: (unknown) (no (unknown) (unknown) ENT. The doctor (units (unknown) date) is Dr. María Harmon. unknown) The office phone number is [phone]. 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 unknown) (Unknown) (unknown) (no (unknown) (unknown) Esterase (units (unkno wn) date) unknown) (unknown) (no (unknown) (unknown) Estimated GFR > (units (unknown) date) 60 (>60) mL/min unknown) (unknown) (no (unknown) (unknown) Evening primrose (units (unknown) date) PO DAILY 08/20/18 unknown) 03/15/22 (unknown) (no (unknown) (unknown) Evening primrose (units (unknown) date) unknown) (unknown) (no (unknown) (unknown) Exam Narrative: (units (unknown) date) unknown) (unknown) (no (unknown) (unknown) Exam (units (unkno wn) date) unknown) (unknown) (no (unknown) (unknown) Extremities: (units (u nknown) date) Warm, well unknown) perfused, FROM, no deformities, no edema. ?? (unknown) (no (unknown) (unknown) Eyes: PERRLA, (units ( unknown) date) EOM's full, unknown) conjunctivae clear. ? (unknown) (no (unknown) (unknown) FINDINGS:? (units (unk nown) date) unknown) (unknown) (no (unknown) (unknown) Face: Has (units (unkn own) date) swelling and unknown) erythema to the nasal bridge. Also appears to be a (unknown) (no (unknown) (unknown) Family History (units (unknown) date) (Reviewed 03/15/22 unknown) @ 11:18 by Natan Waldron DO) (unknown) (no (unknown) (unknown) Father (units (unknown) date) No problems noted. unknown) (unknown) (no (unknown) (unknown) Further (units (unkno wn) date) collection of HPI unknown) reveals history of hypertension atrial fibrillation (unknown) (no (unknown) (unknown) GERD (units (unkno wn) date) (gastroesophageal unknown) reflux disease) (Unknown) (unknown) (no (unknown) (unknown) Gastrointestinal: (units (unknown) date) No nausea or unknown) vomiting (unknown) (no (unknown) (unknown) Gastrointestinal: (units (unknown) date) Soft; NT; ND; Pos unknown) BS with Neg. rebound tenderness. No scars or (unknown) (no (unknown) (unknown) General (units (unkno wn) date) unknown) (unknown) (no (unknown) (unknown) General: No (units (un known) date) fever, chills or unknown) fatigue. (unknown) (no (unknown) (unknown) General: normal (units (unknown) date) appearance, well unknown) developed, well nourished, alert, and awake. (unknown) (no (unknown) (unknown) Globulin 2.8 (units (u nknown) date) (1.7-4.1) g/dL unknown) (unknown) (no (unknown) (unknown) Glucose 89 (units (unk nown) date) (80-110) mg/dL unknown) (unknown) (no (unknown) (unknown) HEENT: Facial (units ( unknown) date) pain swelling and unknown) bruising after fall (unknown) (no (unknown) (unknown) HPI - Fall (units (unk nown) date) unknown) (unknown) (no (unknown) (unknown) HPI Narrative: (units (unknown) date) unknown) (unknown) (no (unknown) (unknown) Hct 36.9 (36-46) (units (unknown) date) % unknown) (unknown) (no (unknown) (unknown) Head: (units (unkno wn) date) Normocephalic, no unknown) lesions. (unknown) (no (unknown) (unknown) Heart: RRR, no (units (unknown) date) murmurs, rubs or unknown) gallops. (unknown) (no (unknown) (unknown) Hgb 12.3 (units (unkno wn) date) (12.0-16.0) g/dL unknown) (unknown) (no (unknown) (unknown) History of (units (unk nown) date) Present Illness unknown) (unknown) (no (unknown) (unknown) Home Medications (units (unknown) date) unknown) (unknown) (no (unknown) (unknown) Hospital, CT, CT (units (unknown) date) FACIAL BONES WO unknown) CON, 04/07/2022, 12:58. (unknown) (no (unknown) (unknown) Hospital, CT, CT (units (unknown) date) HEAD/BRAIN WO CON, unknown) 04/07/2022, 12:58. (unknown) (no (unknown) (unknown) Hx of cataract (units (unknown) date) surgery (-2014) unknown) (unknown) (no (unknown) (unknown) Hyperlipemia (units (u nknown) date) (Unknown) unknown) (unknown) (no (unknown) (unknown) Hypertension (units (u nknown) date) (Unknown) unknown) (unknown) (no (unknown) (unknown) I did not reveal (units (unknown) date) the concerning unknown) results in regards to infectious etiology. (unknown) (no (unknown) (unknown) I find this (units (un known) date) patient to be unknown) medically disabled and qualified for disabled (unknown) (no (unknown) (unknown) I was immediately (units (unknown) date) available in the unknown) department for consultation. Documentation (unknown) (no (unknown) (unknown) IMPRESSION:? No (units (unknown) date) cervical fracture. unknown) (unknown) (no (unknown) (unknown) IMPRESSION:? (units (u nknown) date) unknown) (unknown) (no (unknown) (unknown) INDICATIONS:? (units ( unknown) date) fall face first on unknown) blood thinners (unknown) (no (unknown) (unknown) Image quality:? (units (unknown) date) Excellent.? unknown) (unknown) (no (unknown) (unknown) Imaging Data (units (u nknown) date) unknown) (unknown) (no (unknown) (unknown) Initial Vital (units ( unknown) date) Signs unknown) (unknown) (no (unknown) (unknown) Initial Vital (units ( unknown) date) Signs: unknown) (unknown) (no (unknown) (unknown) Instructions: How (units (unknown) date) to Prevent Falls unknown) (unknown) (no (unknown) (unknown) Interpretation: (units (unknown) date) unknown) (unknown) (no (unknown) (unknown) [facility] (units (unknown) date) [address] unknown) [place] [address] (unknown) (no (unknown) (unknown) [place] (units (unkno wn) date) unknown) (unknown) (no (unknown) (unknown) Ketorolac (units (unkn own) date) Tromethamine unknown) (Ketorolac 30 Mg/Ml Vial) 30 mg IV NOW ONE (unknown) (no (unknown) (unknown) Knee pain (units (unkn own) date) unknown) (unknown) (no (unknown) (unknown) Lab Data (units (unkno wn) date) unknown) (unknown) (no (unknown) (unknown) Lab Results (units (un known) date) unknown) (unknown) (no (unknown) (unknown) Label Comments: (units (unknown) date) unknown) (unknown) (no (unknown) (unknown) Labs: (units (unkno wn) date) unknown) (unknown) (no (unknown) (unknown) Last Admin: (units (un known) date) 04/07/22 13:46 unknown) Dose: 30 mg (unknown) (no (unknown) (unknown) Last Admin: (units (un known) date) 04/07/22 15:46 unknown) Dose: Not Given (unknown) (no (unknown) (unknown) Left knee pain (units (unknown) date) unknown) (unknown) (no (unknown) (unknown) Low back pain (units ( unknown) date) unknown) (unknown) (no (unknown) (unknown) Lymph # (Auto) (units (unknown) date) 1700 (2637-6456) unknown) /uL (unknown) (no (unknown) (unknown) Lymph % (Auto) (units (unknown) date) 32.2 (25-40) % unknown) (unknown) (no (unknown) (unknown) MCH 30.6 (26-34) (units (unknown) date) PG unknown) (unknown) (no (unknown) (unknown) MCHC 33.3 (30-36) (units (unknown) date) % unknown) (unknown) (no (unknown) (unknown) MCV 91.9 (80-100) (units (unknown) date) fL unknown) (unknown) (no (unknown) (unknown) MDM - Fall (units (unk nown) date) unknown) (unknown) (no (unknown) (unknown) MDM Narrative (units ( unknown) date) unknown) (unknown) (no (unknown) (unknown) Medical History (units (unknown) date) (Reviewed 03/15/22 unknown) @ 11:18 by Natan Waldron DO) (unknown) (no (unknown) (unknown) Medical decision (units (unknown) date) making narrative: unknown) (unknown) (no (unknown) (unknown) Medication (units (unk nown) date) Instructions unknown) Recorded Confirmed (unknown) (no (unknown) (unknown) Medication (units (unk nown) date) Instructions unknown) Recorded (unknown) (no (unknown) (unknown) Mitral (units (unkno wn) date) regurgitation unknown) (Unknown) (unknown) (no (unknown) (unknown) Mode of arrival: (units (unknown) date) EMS unknown) (unknown) (no (unknown) (unknown) [place] # (Auto) 500 (units (unknown) date) (0-900) /uL unknown) (unknown) (no (unknown) (unknown) [place] % (Auto) 9.6 (units (unknown) date) (3-14) % unknown) (unknown) (no (unknown) (unknown) Mother (units (unknown) date) No problems noted. unknown) (unknown) (no (unknown) (unknown) Multilevel (units (unk nown) date) unknown) (unknown) (no (unknown) (unknown) Musculoskeletal: (units (unknown) date) No pain in muscles unknown) or joints, no limitation of range of motion, (unknown) (no (unknown) (unknown) Narrative (units (unkn own) date) unknown) (unknown) (no (unknown) (unknown) Narrative: (units (unk nown) date) unknown) (unknown) (no (unknown) (unknown) Nasal bone (units (unk nown) date) fracture unknown) (unknown) (no (unknown) (unknown) Nasal bone with (units (unknown) date) possible nasal unknown) septal fracture.? (unknown) (no (unknown) (unknown) Neuro: (units (unkno wn) date) Physiological, no unknown) localizing findings, No pain to palpation of neck, CN3 (unknown) (no (unknown) (unknown) Neurological: (units ( unknown) date) Awake, alert and unknown) in not apparent distress. No Headaches, changes (unknown) (no (unknown) (unknown) Neut # (Auto) (units ( unknown) date) 3100 (4439-5077) unknown) /uL (unknown) (no (unknown) (unknown) Neut % (Auto) (units ( unknown) date) 57.0 (50-75) % unknown) (unknown) (no (unknown) (unknown) No Action (units (unkn own) date) unknown) (unknown) (no (unknown) (unknown) No Known Drug (units ( unknown) date) Allergies Allergy unknown) Verified 03/15/22 10:39 (unknown) (no (unknown) (unknown) Noncontrast 2.5 (units (unknown) date) mm thick axial unknown) images acquired from the mandible through the (unknown) (no (unknown) (unknown) Noncontrast 3 mm (units (unknown) date) thick sections unknown) acquired from the skull base to the T4 level.? (unknown) (no (unknown) (unknown) Noncontrast 4.5 (units (unknown) date) mm thick angled unknown) axial sections acquired from the foramen magnum (unknown) (no (unknown) (unknown) Not in acute (units (u nknown) date) distress. ? 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 CT (units (unknown) date) CERVICAL SPINE WO unknown) CON (unknown) (no (unknown) (unknown) PROCEDURE:? CT (units (unknown) date) FACIAL BONES WO unknown) CON (unknown) (no (unknown) (unknown) PROCEDURE:? CT (units (unknown) date) HEAD/BRAIN WO CON unknown) (unknown) (no (unknown) (unknown) PSYCHIATRIC: The (units (unknown) date) mood is good, no unknown) blunted affect. Speech is clear. Thought (unknown) (no (unknown) (unknown) Parking Permit... (units (unknown) date) #1 ea 02/08/22 unknown) (unknown) (no (unknown) (unknown) Patient (units (unkno wn) date) Disposition: Home unknown) (unknown) (no (unknown) (unknown) Patient History (units (unknown) date) unknown) (unknown) (no (unknown) (unknown) Patient (units (unkno wn) date) discharged in unknown) refer to ENT. Patient also advised to contact her primary (unknown) (no (unknown) (unknown) Patient is an (units ( unknown) date) 86-year-old female unknown) who presents to the emergency room today with (unknown) (no (unknown) (unknown) Patient: (units (unkno wn) date) Dana Pillai M unknown) MR#: [id number] (unknown) (no (unknown) (unknown) Natan Waldron, (units (unknown) date) DO [Primary Care unknown) Provider] (unknown) (no (unknown) (unknown) Physical Exam: ? (units (unknown) date) unknown) (unknown) (no (unknown) (unknown) Plt Count 169 (units ( unknown) date) (150-400) X103/uL unknown) (unknown) (no (unknown) (unknown) Potassium 4.3 (units ( unknown) date) (3.4-5.1) mmol/L unknown) (unknown) (no (unknown) (unknown) Prescriptions: (units (unknown) date) unknown) (unknown) (no (unknown) (unknown) Previous Rx's (units ( unknown) date) unknown) (unknown) (no (unknown) (unknown) Pulse Oximetry 96 (units (unknown) date) 95 unknown) (unknown) (no (unknown) (unknown) Pulse Oximetry 96 (units (unknown) date) 96 unknown) (unknown) (no (unknown) (unknown) Pulse Oximetry 97 (units (unknown) date) unknown) (unknown) (no (unknown) (unknown) Pulse Oximetry 98 (units (unknown) date) 98 unknown) (unknown) (no (unknown) (unknown) Pulse Oximetry 98 (units (unknown) date) unknown) (unknown) (no (unknown) (unknown) Pulse Rate 63 64 (units (unknown) date) unknown) (unknown) (no (unknown) (unknown) Pulse Rate 63 68 (units (unknown) date) unknown) (unknown) (no (unknown) (unknown) Pulse Rate 65 64 (units (unknown) date) unknown) (unknown) (no (unknown) (unknown) Pulse Rate 67 66 (units (unknown) date) unknown) (unknown) (no (unknown) (unknown) Pulse Rate 96 H (units (unknown) date) 04/07/22 12:53 unknown) (unknown) (no (unknown) (unknown) Pulse Rate 96 H (units (unknown) date) 73 unknown) (unknown) (no (unknown) (unknown) Qty: 0 (units (unkno wn) date) unknown) (unknown) (no (unknown) (unknown) R.O.S.: (units (unkno wn) date) unknown) (unknown) (no (unknown) (unknown) RBC 4.01 (units (unkno wn) date) (4.0-5.2) X106/uL unknown) (unknown) (no (unknown) (unknown) RDW 13.6 (units (unkno wn) date) (11.6-14.8) % unknown) (unknown) (no (unknown) (unknown) Radiologist's (units ( unknown) date) Impression: unknown) (unknown) (no (unknown) (unknown) Referrals: (units (unk nown) date) unknown) (unknown) (no (unknown) (unknown) Related Data (units (u nknown) date) unknown) (unknown) (no (unknown) (unknown) Resource line at (units (unknown) date) [phone]. They unknown) will ask some questions about your medical (unknown) (no (unknown) (unknown) Respiratory Rate (units (unknown) date) 22 unknown) (unknown) (no (unknown) (unknown) Respiratory Rate (units (unknown) date) 23 15 unknown) (unknown) (no (unknown) (unknown) Respiratory Rate (units (unknown) date) unknown) (unknown) (no (unknown) (unknown) Respiratory: No (units (unknown) date) S.O.B. unknown) (unknown) (no (unknown) (unknown) Result diagrams: (units (unknown) date) unknown) (unknown) (no (unknown) (unknown) Review of Systems (units (unknown) date) unknown) (unknown) (no (unknown) (unknown) Ramu. (units (unk nown) date) unknown) (unknown) (no (unknown) (unknown) Rx Instructions: (units (unknown) date) unknown) (unknown) (no (unknown) (unknown) Sagittal (units (unkno wn) date) unknown) (unknown) (no (unknown) (unknown) See Rx (units (unkno wn) date) Instructions unknown) .Route .[facility] Qty: 1 0RF (unknown) (no (unknown) (unknown) Signed By: (units (unk nown) date) unknown) (unknown) (no (unknown) (unknown) Silver (units (unkno wn) date) Nitrate/Potassium unknown) Nitrate (Silver Nitrate Stick) 1 each TOP NOW ONE (unknown) (no (unknown) (unknown) Sinus rhythm with (units (unknown) date) first-degree AV unknown) block, rate of 64 MI 222, QRS 84 and QTC of (unknown) (no (unknown) (unknown) Sinuses:? (units (unkn own) date) Scattered fluid is unknown) present within the ethmoid air cells. (unknown) (no (unknown) (unknown) Sinuses:? (units (unkn own) date) Visualized sinuses unknown) demonstrate ethmoid mucosal thickening. (unknown) (no (unknown) (unknown) Skin: No rash or (units (unknown) date) associated unknown) abnormalities (unknown) (no (unknown) (unknown) Skin: Normal, no (units (unknown) date) rashes, no lesions unknown) noted. ?? (unknown) (no (unknown) (unknown) Skull and face:? (units (unknown) date) Calvarium appears unknown) intact.? There is comminuted nasal bone (unknown) (no (unknown) (unknown) Smoking Status: (units (unknown) date) Never smoker unknown) (unknown) (no (unknown) (unknown) Social History (units (unknown) date) unknown) (unknown) (no (unknown) (unknown) Sodium 135 L (units (u nknown) date) (137-145) mmol/L unknown) (unknown) (no (unknown) (unknown) Soft tissues:? No (units (unknown) date) edema, masses, or unknown) fluid collections.? No enlarged lymph (unknown) (no (unknown) (unknown) Soft tissues:? (units (unknown) date) Prevertebral soft unknown) tissues are normal in thickness.? No (unknown) (no (unknown) (unknown) Source: EMS (units (un known) date) unknown) (unknown) (no (unknown) (unknown) Stated Complaint: (units (unknown) date) Trip/Fall face unknown) first,on eliquis,no loc,mod trauma (unknown) (no (unknown) (unknown) Status post right (units (unknown) date) breast lumpectomy unknown) (-1966) (unknown) (no (unknown) (unknown) Stop: 04/07/22 (units (unknown) date) 13:41 unknown) (unknown) (no (unknown) (unknown) Stop: 04/07/22 (units (unknown) date) 15:35 unknown) (unknown) (no (unknown) (unknown) Substance Use (units ( unknown) date) Type: does not use unknown) (unknown) (no (unknown) (unknown) Superficial (units (un known) date) laceration unknown) (unknown) (no (unknown) (unknown) Surgical History (units (unknown) date) (Reviewed 03/15/22 unknown) @ 11:18 by Natan Waldron DO) (unknown) (no (unknown) (unknown) TECHNIQUE:? (units (un known) date) unknown) (unknown) (no (unknown) (unknown) Temperature 97.6 (units (unknown) date) F unknown) (unknown) (no (unknown) (unknown) Temperature (units (un known) date) unknown) (unknown) (no (unknown) (unknown) There is a slight (units (unknown) date) offset appearance unknown) of the nasal septum.? Overlying soft tissue (unknown) (no (unknown) (unknown) There is (units (unkno wn) date) comminuted nasal unknown) bone fracture with overlying soft tissue edema.? There (unknown) (no (unknown) (unknown) Total Bilirubin (units (unknown) date) 0.8 (0.2-1.3) unknown) mg/dL (unknown) (no (unknown) (unknown) Total Protein 6.6 (units (unknown) date) (6.3-8.2) g/dL unknown) (unknown) (no (unknown) (unknown) Urinary (units (unkno wn) date) incontinence unknown) (Unknown) (unknown) (no (unknown) (unknown) Urine Dip (units (unkn own) date) unknown) (unknown) (no (unknown) (unknown) Urine Specific (units (unknown) date) [place] 1.015 unknown) (unknown) (no (unknown) (unknown) Vascular:? (units (unk nown) date) Visualized unknown) vascular structures appear normal in the absence of (unknown) (no (unknown) (unknown) Visit Report (units (u nknown) date) Forms: Patient unknown) Portal/API (unknown) (no (unknown) (unknown) Visualized (units (unk nown) date) portions of the unknown) skull base and auditory canals are intact.? (unknown) (no (unknown) (unknown) Vital Signs - 8 (units (unknown) date) hr unknown) (unknown) (no (unknown) (unknown) Vital Signs (units (un known) date) unknown) (unknown) (no (unknown) (unknown) Vital signs: (units (u nknown) date) unknown) (unknown) (no (unknown) (unknown) WBC 5.4 (units (unkno wn) date) (4.5-11.0) X103/uL unknown) (unknown) (no (unknown) (unknown) Well adult exam (units (unknown) date) unknown) (unknown) (no (unknown) (unknown) [ ] New (units (unkno wn) date) medication unknown) prescriptions sent to your pharmacy: [ ] (unknown) (no (unknown) (unknown) [ ] New (units (unkno wn) date) medication written unknown) as a paper prescription (unknown) (no (unknown) (unknown) [Embedded Image (units (unknown) date) Not Available] unknown) (unknown) (no (unknown) (unknown) [GARLIC] ##0 (units (u nknown) date) 12/26/16 03/15/22 unknown) (unknown) (no (unknown) (unknown) [GARLIC] (units (unkno wn) date) unknown) (unknown) (no (unknown) (unknown) [x] No new (units (unk nown) date) medications given unknown) (unknown) (no (unknown) (unknown) a comminuted (units (u nknown) date) nasal bone and a unknown) possible nondisplaced nasal septal fracture. (unknown) (no (unknown) (unknown) according to (units (u nknown) date) unknown) (unknown) (no (unknown) (unknown) age, with (units (unkn own) date) unknown) (unknown) (no (unknown) (unknown) alcohol intake (units (unknown) date) frequency: 0-2 unknown) drinks per day (unknown) (no (unknown) (unknown) alcohol intake: (units (unknown) date) current unknown) (unknown) (no (unknown) (unknown) amlodipine 5 mg (units (unknown) date) tablet 5 mg PO unknown) DAILY 02/17/18 03/15/22 (unknown) (no (unknown) (unknown) amlodipine 5 mg (units (unknown) date) tablet unknown) (unknown) (no (unknown) (unknown) and coronal (units (un known) date) reformats were unknown) then constructed.? For radiation dose reduction, the (unknown) (no (unknown) (unknown) and mild anemia. (units (unknown) date) CT scan of the unknown) head was negative but face CT was positive for (unknown) (no (unknown) (unknown) apixaban 5 mg (units ( unknown) date) tablet (Eliquis) 5 unknown) mg PO BID #180 tabs 10/12/20 (unknown) (no (unknown) (unknown) apply to single (units (unknown) date) elbow, wrist or unknown) hand; for hand includes palm/fingers/back of (unknown) (no (unknown) (unknown) appointment. Let (units (unknown) date) them know you were unknown) seen in the Emergency Department and that we (unknown) (no (unknown) (unknown) artery (units (unkno wn) date) atherosclerosis.? unknown) (unknown) (no (unknown) (unknown) ask that you be (units (unknown) date) seen in follow up. unknown) We will electronically transmit a record of (unknown) (no (unknown) (unknown) care provider for (units (unknown) date) any non emergent unknown) concerns. (unknown) (no (unknown) (unknown) carotid (units (unkno wn) date) unknown) (unknown) (no (unknown) (unknown) cholecalciferol (units (unknown) date) (vitamin D3) 1,000 unknown) unit capsule (unknown) (no (unknown) (unknown) cholecalciferol (units (unknown) date) (vitamin D3) 25 unknown) 1,000 unit PO DAILY 02/17/18 03/15/22 (unknown) (no (unknown) (unknown) complaint facial (units (unknown) date) pain status post unknown) fall this morning at about 11:00 a.m.. (unknown) (no (unknown) (unknown) complaint of face (units (unknown) date) pain after a fall. unknown) States she fell this morning at about (unknown) (no (unknown) (unknown) concerning (units (unk nown) date) symptoms, such as unknown) [fever greater than 101 F, shaking chills, (unknown) (no (unknown) (unknown) contrast.? Bony (units (unknown) date) unknown) (unknown) (no (unknown) (unknown) dapsone 25 mg (units ( unknown) date) tablet 25 mg PO unknown) .COMPLEX 08/20/18 03/15/22 (unknown) (no (unknown) (unknown) dapsone 25 mg (units ( unknown) date) tablet unknown) (unknown) (no (unknown) (unknown) deformity.? (units (un known) date) unknown) (unknown) (no (unknown) (unknown) degenerative (units (u nknown) date) changes are unknown) present. (unknown) (no (unknown) (unknown) described to have (units (unknown) date) a mechanical unknown) ground level fall, facial bone fractures. Back (unknown) (no (unknown) (unknown) diclofenac sodium (units (unknown) date) 1 % topical gel 2 unknown) g topical ONCE arthritis pain 10/12/20 (unknown) (no (unknown) (unknown) diclofenac sodium (units (unknown) date) [Voltaren] 1 % gel unknown) (unknown) (no (unknown) (unknown) edema is (units (unkno wn) date) unknown) (unknown) (no (unknown) (unknown) etiologies that (units (unknown) date) could be related unknown) to the fall. ECG shows a first-degree AV block (unknown) (no (unknown) (unknown) exam is not (units (un known) date) reported in the unknown) chart but patient was reported without pain by PA (unknown) (no (unknown) (unknown) fall. Also admits (units (unknown) date) to history of unknown) hypertension, mild anemia and atrial (unknown) (no (unknown) (unknown) fall. Last fall (units (unknown) date) was about 5 years unknown) ago. Denies ever passing out and falling. (unknown) (no (unknown) (unknown) fibrillation. (units ( unknown) date) Takes Eliquis and unknown) blood pressure medications. (unknown) (no (unknown) (unknown) following was (units ( unknown) date) used:? automated unknown) exposure control, adjustment of mA and/or kV (unknown) (no (unknown) (unknown) following (units (unkn own) date) unknown) (unknown) (no (unknown) (unknown) for Individuals. (units (unknown) date) unknown) (unknown) (no (unknown) (unknown) fractures or (units (u nknown) date) subluxation.? unknown) Zygomatic arches are intact.? Pterygoid plates are (unknown) (no (unknown) (unknown) fractures.? (units (un known) date) unknown) (unknown) (no (unknown) (unknown) frontal (units (unkno wn) date) unknown) (unknown) (no (unknown) (unknown) further workup or (units (unknown) date) interventions in unknown) that regard. Labs in blood in urine return. (unknown) (no (unknown) (unknown) hand (units (unkno wn) date) unknown) (unknown) (no (unknown) (unknown) has been (units (unkno wn) date) reviewed. Patient unknown) case is discussed. EKG was reviewed. Patient (unknown) (no (unknown) (unknown) hematomas.? No (units (unknown) date) apical unknown) pneumothoraces.? Mild fluid is noted in the posterior (unknown) (no (unknown) (unknown) history and help (units (unknown) date) get you set up unknown) with a doctor in the community. (unknown) (no (unknown) (unknown) in the posterior (units (unknown) date) oropharynx.? unknown) Visualized portions of the mandible demonstrate no (unknown) (no (unknown) (unknown) in vision or (units (u nknown) date) other related unknown) neurological concerns. (unknown) (no (unknown) (unknown) intact.? (units (unkno wn) date) unknown) (unknown) (no (unknown) (unknown) is noted (units (unkno wn) date) unknown) (unknown) (no (unknown) (unknown) is (units (unkno wn) date) unknown) (unknown) (no (unknown) (unknown) losartan 100 mg (units (unknown) date) tablet 100 mg PO unknown) DAILY #90 tabs 08/20/18 (unknown) (no (unknown) (unknown) losartan 100 mg (units (unknown) date) tablet unknown) (unknown) (no (unknown) (unknown) major deformities (units (unknown) date) noted on Visual unknown) Inspection. (unknown) (no (unknown) (unknown) matter chronic (units (unknown) date) small vessel unknown) ischemic changes.? There is intracranial internal (unknown) (no (unknown) (unknown) mcg (1,000 unit) (units (unknown) date) capsule unknown) (unknown) (no (unknown) (unknown) metoprolol (units (unk nown) date) tartrate 50 MG unknown) tablet (unknown) (no (unknown) (unknown) metoprolol (units (unk nown) date) tartrate 50 mg unknown) tablet 50 mg PO BID #180 tabs 06/10/17 (unknown) (no (unknown) (unknown) no paresthesia or (units (unknown) date) numbness. ?? unknown) (unknown) (no (unknown) (unknown) nodes.? No soft (units (unknown) date) unknown) (unknown) (no (unknown) (unknown) oropharynx. (units (un known) date) unknown) (unknown) (no (unknown) (unknown) paravertebral (units ( unknown) date) unknown) (unknown) (no (unknown) (unknown) parking as (units (unkn own) date) indicated and unknown) signed on the Accompanying Disabled Parking Application (unknown) (no (unknown) (unknown) patient size.? (units (unknown) date) unknown) (unknown) (no (unknown) (unknown) patient (units (unkno wn) date) unknown) (unknown) (no (unknown) (unknown) present.? Mild (units (unknown) date) fluid is noted in unknown) the posterior oropharynx. (unknown) (no (unknown) (unknown) process is (units (unk nown) date) linear, thought unknown) content is appropriate. The voice is without (unknown) (no (unknown) (unknown) release 24 hr (units ( unknown) date) unknown) (unknown) (no (unknown) (unknown) resultant (units (unkno wn) date) ventricular and unknown) sulcal prominence.? There are periventricular and deep (unknown) (no (unknown) (unknown) room if any (units (un known) date) emergent concerns unknown) arise. [ ] (unknown) (no (unknown) (unknown) secretions in the (units (unknown) date) bilateral nares. unknown) Entire nasal bridge is tender to palpation. (unknown) (no (unknown) (unknown) shift of the (units (u nknown) date) nasal bridge unknown) slightly to the right. There is also bloody (unknown) (no (unknown) (unknown) significant (units (un known) date) inflection. unknown) (unknown) (no (unknown) (unknown) simvastatin 20 mg (units (unknown) date) tablet 20 mg PO HS unknown) #90 tabs 11/16/21 (unknown) (no (unknown) (unknown) simvastatin 20 mg (units (unknown) date) tablet unknown) (unknown) (no (unknown) (unknown) sinuses, with (units ( unknown) date) coronal and unknown) sagittal reformatting.? For radiation dose reduction, (unknown) (no (unknown) (unknown) size.? (units (unkno wn) date) unknown) (unknown) (no (unknown) (unknown) slight offset (units (u nknown) date) appearance of the unknown) nasal septum suggestive of fracture.? Mild fluid (unknown) (no (unknown) (unknown) substance use (units ( unknown) date) type: does not use unknown) (unknown) (no (unknown) (unknown) suggest she take (units (unknown) date) [id number] unknown) ibuprofen or naproxen for pain. I also (unknown) (no (unknown) (unknown) suggest she use (units (unknown) date) ice to help with unknown) facial swelling and return to the emergency (unknown) (no (unknown) (unknown) the 1st step. Has (units (unknown) date) fallen in the past unknown) in each fall was related to a trip or (unknown) (no (unknown) (unknown) the (units (unkno wn) date) unknown) (unknown) (no (unknown) (unknown) tissue (units (unkno wn) date) lacerations or unknown) debris.? (unknown) (no (unknown) (unknown) to ENT and (units (unk nown) date) suggest she unknown) follow-up with them. The ENT office is [facility] (unknown) (no (unknown) (unknown) to the (units (unkno wn) date) unknown) (unknown) (no (unknown) (unknown) today's note if (units (unknown) date) your PCP is in our unknown) system (unknown) (no (unknown) (unknown) tolterodine 2 mg (units (unknown) date) capsule,extended 2 unknown) mg PO DAILY #90 caps 09/11/21 (unknown) (no (unknown) (unknown) tolterodine 2 mg (units (unknown) date) capsule,extended unknown) release 24hr (unknown) (no (unknown) (unknown) vascular foramina (units (unknown) date) and canals are unknown) intact.? (unknown) (no (unknown) (unknown) ventricles are (units (unknown) date) symmetric in size unknown) and shape.? (unknown) (no (unknown) (unknown) vertex, with (units (u nknown) date) coronal and unknown) sagittal reformats.? For radiation dose reduction, the (unknown) (no (unknown) (unknown) was used:? (units (unk nown) date) automated exposure unknown) control, adjustment of mA and/or kV according to (unknown) (no (unknown) (unknown) white (units (unkno wn) date) unknown) (unknown) (no (unknown) (unknown) with a sinus (units (u nknown) date) rhythm. ECG was unknown) reviewed by and is okay with no (unknown) (no (unknown) (unknown) worsening pain, (units (unknown) date) persistent unknown) vomiting or other bothersome symptoms] Social History date description facility (no date) Never smoked tobacco ([facility] Vital Signs date measurement value units +0000 BMI BMI 25.7 kg/m2 +0000 BP_diastolic BP_diastolic 88 mm[H g] +0000 BP_systolic BP_systolic 160 mm[Hg] +0000 heart_rate heart_rate 61 /min +0000 height_metric height_metric 156.21 cm +0000 height_standard height_standard 61.5 in +0000 weight_metric weight_metric 28.42 kg +0000 weight_standard weight_standard 62.65 lb
[2022-04-12] MEDS ORDERED: SILVER NITRATE APPLICATOR TOP STA (18:47)
[2022-04-12] MEDS ORDERED: HYDROcod/ACETAM 5/325 MG TABLET PO STA (20:12)
[2022-04-12] MEDS ORDERED: HYDROcod/ACET 5/325 Prepack 4 PO STA (20:12)
[2022-04-12] MEDS ORDERED: AMOXICILLIN 250 MG CAPSULE PO STA (20:12)
[2022-04-12 20:51] VITALS: BP 169/73
== END 2022-04-12 20:50 | disposition home or self-care (01) ==
LOC: ED 18:32
DX: S02.2XXD Fracture of nasal bones, subsequent encounter for fracture with routine healing (principal); W19.XXXD Unspecified fall, subsequent encounter; R04.0 Epistaxis; Z79.01 Long term (current) use of anticoagulants
CPT/HCPCS: 30901; 99282; A9270

== ENCOUNTER 2022-08-01 13:45 | Emergency (ER) | payer MEDICARE, OTHER ==
[2022-08-01 14:02] VITALS: BP 173/111
--- OUTSIDE RECORDS SUMMARY | 2022-08-01 14:14 | EXTERNAL MEDICAL SUMMARY RPT | Continuity of Care Document ---
:1935 Author Organization [facility] Address [address] [place] [address] Phone Care Team Providers Name Role Phone Natan Waldron Unavailable Unavailable Allergies No information. Encounters No information. Functional Status No information. Immunizations No information. Medications date description facility 2022-06-12 00:00 Amoxicillin-Pot Clavulanate [facility] Problems date description facility 2022-06-12 13:02 Nonrheumatic mitral (valve) insufficien [facility] Procedures No information. Results/Labs test date author facility value unit interpret ation Result panel 1 (unknown) (no (unknown) (unknown) (no value) (units (unk nown) date) unknown) (unknown) (no (unknown) (unknown) #100 grams (units (unk nown) date) 10/12/20 [Rx unknown) Confirmed 06/12/22] (unknown) (no (unknown) (unknown) 02/17/18 [History (units (unknown) date) Confirmed unknown) 06/12/22] (unknown) (no (unknown) (unknown) 06/12/22 (units (unkno wn) date) unknown) (unknown) (no (unknown) (unknown) 06/12/22] (units (unkn own) date) unknown) (unknown) (no (unknown) (unknown) 13:23 (units (unkno wn) date) unknown) (unknown) (no (unknown) (unknown) [id number] (units (unkno wn) date) unknown) (unknown) (no (unknown) (unknown) 87 year old (units (un known) date) female presents to unknown) clinic for cold symptoms x 3 days. symptoms (unknown) (no (unknown) (unknown) Age/Sex: 87 / F (units (unknown) date) Date of Service: unknown) (unknown) (no (unknown) (unknown) Allergies (units (unkn own) date) unknown) (unknown) (no (unknown) (unknown) Collins, LEÓN (units ( unknown) date) [id number] unknown) (unknown) (no (unknown) (unknown) Anemia (units (unkno wn) date) unknown) (unknown) (no (unknown) (unknown) Assessment + Plan (units (unknown) date) unknown) (unknown) (no (unknown) (unknown) Attending Dr: Ivette (units (unknown) date) Hoda D.OShannen unknown) (unknown) (no (unknown) (unknown) BP 120/72 (units (unkn own) date) unknown) (unknown) (no (unknown) (unknown) Blood Pressure (units (unknown) date) Location Lt unknown) brachial (unknown) (no (unknown) (unknown) Brother Age: 86 (units (unknown) date) Heart disease unknown) (unknown) (no (unknown) (unknown) Cataracts, (units (unk nown) date) bilateral unknown) (Unknown) (unknown) (no (unknown) (unknown) : 1935 (units (unknown) date) Acct:[id number] unknown) (unknown) (no (unknown) (unknown) Dept at (units (unkno wn) date) . 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 unknown) (unknown) (no (unknown) (unknown) [facility] (units ([facility] date[facility] unknown) (unknown) (no (unknown) (unknown) GERD (units (unkno wn) date) (gastroesophageal unknown) reflux disease) (Unknown) (unknown) (no (unknown) (unknown) Health Management (units (unknown) date) reviewed with unknown) patient: Yes (unknown) (no (unknown) (unknown) Health Management (units (unknown) date) unknown) (unknown) (no (unknown) (unknown) Hx of cataract (units (unknown) date) surgery (-2014) unknown) (unknown) (no (unknown) (unknown) Hyperlipemia (units (u nknown) date) (Unknown) unknown) (unknown) (no (unknown) (unknown) Hypertension (units (u nknown) date) (Unknown) unknown) (unknown) (no (unknown) (unknown) Intake Note: (units (u nknown) date) unknown) (unknown) (no (unknown) (unknown) Intake performed (units (unknown) date) by: Marilyn Cerna unknown) (unknown) (no (unknown) (unknown) Intake (units (unkno wn) date) unknown) (unknown) (no (unknown) (unknown) Intake- Clincial [...] problems noted. unknown) (unknown) (no (unknown) (unknown) No Known Drug (units ( unknown) date) Allergies Allergy unknown) (Verified 06/12/22 13:02) (unknown) (no (unknown) (unknown) Orders (units (unkno wn) date) unknown) (unknown) (no (unknown) (unknown) Orders: (units (unkno wn) date) unknown) (unknown) (no [...] date) #1 ea 02/08/22 [Rx unknown) Confirmed 06/12/22] (unknown) (no (unknown) (unknown) Patient: (units (unkno wn) date) Dana Pillai M unknown) MR#: [id number] (unknown) (no (unknown) (unknown) Position Sitting (units (unknown) date) unknown) (unknown) (no (unknown) (unknown) Pulse 79 (units (unkno wn) date) unknown) (unknown) (no (unknown) (unknown) Pulse Oximetry (units (unknown) date) (%) 96 unknown) (unknown) (no (unknown) (unknown) Pulse Source [...] lumpectomy unknown) (-1966) (unknown) (no (unknown) (unknown) Strep Grp A by (units (unknown) date) PCR Rapid Today unknown) J02.9 - Acute pharyngitis, unspecified (unknown) (no (unknown) (unknown) Superficial (units (un known) date) laceration unknown) (unknown) (no (unknown) (unknown) Surgical History (units (unknown) date) (Reviewed 03/15/22 unknown) @ 11:18 by Natan Waldron DO) (unknown) (no (unknown) (unknown) Temp 98.4 F (units (un known) date) unknown) (unknown) (no (unknown) (unknown) Temp Source (units (un known) date) Temporal Artery unknown) Scan (unknown) (no (unknown) (unknown) This note may (units ( unknown) date) have been all or unknown) partially generated using voice recognition (unknown) (no (unknown) (unknown) Throat Culture (units (unknown) date) Today J02.9 - unknown) Acute pharyngitis, unspecified (unknown) (no (unknown) (unknown) Tobacco + (units (unkn own) date) Substance Use unknown) (unknown) (no (unknown) (unknown) Tobacco Status (units (unknown) date) unknown) (unknown) (no (unknown) (unknown) Urinary (units (unkno wn) date) incontinence unknown) (Unknown) (unknown) (no (unknown) (unknown) Visit Reasons: (units (unknown) date) [facility]- URI unknown) (unknown) (no (unknown) (unknown) Vitals (units (unkno wn) date) unknown) (unknown) (no (unknown) (unknown) Weight 135 lb (units ( unknown) date) unknown) (unknown) (no (unknown) (unknown) Well adult exam (units (unknown) date) unknown) (unknown) (no (unknown) (unknown) [GARLIC] ##0 (units (u nknown) date) 12/26/16 [History unknown) Confirmed 06/12/22] (unknown) (no (unknown) (unknown) [Rx Confirmed (units ( unknown) date) 06/12/22] unknown) (unknown) (no (unknown) (unknown) alcohol intake: (units (unknown) date) current unknown) (unknown) (no (unknown) (unknown) amlodipine 5 mg (units (unknown) date) tablet 5 mg PO unknown) DAILY 02/17/18 [History Confirmed 06/12/22] (unknown) (no (unknown) (unknown) apixaban 5 mg (units ( unknown) date) tablet (Eliquis) 5 unknown) mg PO BID #180 tabs 10/12/20 [Rx Confirmed (unknown) (no (unknown) (unknown) but it was not (units (unknown) date) effective. unknown) (unknown) (no (unknown) (unknown) cholecalciferol (units (unknown) date) (vitamin D3) 25 unknown) mcg (1,000 unit) capsule 1,000 unit PO DAILY (unknown) (no (unknown) (unknown) dapsone 25 mg (units ( unknown) date) tablet 25 mg PO unknown) .COMPLEX 08/20/18 [History Confirmed 06/12/22] (unknown) (no (unknown) (unknown) diclofenac sodium (units (unknown) date) 1 % topical gel unknown) (Voltaren) 2 g topical ONCE arthritis pain (unknown) (no (unknown) (unknown) have occurred. If (units (unknown) date) there are any unknown) questions, please contact the Medical Records (unknown) (no (unknown) (unknown) include runny (units (u nknown) date) nose, sore throat, unknown) cough, and congestion. the patient tried nyquil (unknown) (no (unknown) (unknown) losartan 100 mg (units (unknown) date) tablet 100 mg PO unknown) DAILY #90 tabs 08/20/18 [Rx Confirmed 06/12/22] (unknown) (no (unknown) (unknown) may occur. (units [...] HS unknown) #90 tabs 11/16/21 [Rx Confirmed 06/12/22] (unknown) (no (unknown) (unknown) software. (units (unkn own) date) Although every unknown) effort is made to edit content, director of entertainment errors (unknown) (no (unknown) (unknown) substance use (units ( unknown) date) type: does not use unknown) (unknown) (no (unknown) (unknown) tolterodine 2 mg (units (unknown) date) capsule,extended unknown) release 24 hr 2 mg PO DAILY #90 caps 09/11/21 Result panel 2 (unknown) (no (unknown) (unknown) (no value) (units (unk nown) date) unknown) (unknown) (no (unknown) (unknown) #100 grams (units (unk nown) date) 10/12/20 [Rx unknown) Confirmed 06/12/22] (unknown) (no (unknown) (unknown) 02/17/18 [History (units (unknown) date) Confirmed unknown) 06/12/22] (unknown) (no (unknown) (unknown) 06/12/22 (units (unkno wn) date) unknown) (unknown) (no (unknown) (unknown) 06/12/22] (units (unkn own) date) unknown) (unknown) (no (unknown) (unknown) 13:23 (units (unkno wn) date) unknown) (unknown) (no (unknown) (unknown) [id number] (units (unkno wn) date) unknown) (unknown) (no (unknown) (unknown) 87 year old (units (un known) date) female presents to unknown) clinic for cold symptoms x 3 days. symptoms (unknown) (no (unknown) (unknown) Age/Sex: 87 / F (units (unknown) date) Date of Service: unknown) (unknown) (no (unknown) (unknown) Allergies (units (unkn own) date) unknown) (unknown) (no (unknown) (unknown) Allergies: (units (unk nown) date) Reviewed unknown) (unknown) (no (unknown) (unknown) LEÓN Nixon (units ( unknown) date) [id number] unknown) (unknown) (no (unknown) (unknown) Anemia (units (unkno wn) date) unknown) (unknown) (no (unknown) (unknown) Assessment + Plan (units (unknown) date) unknown) (unknown) (no (unknown) (unknown) Attending Dr: Ivette (units (unknown) date) Hoda D.OShannen unknown) (unknown) (no (unknown) (unknown) BP 120/72 (units (unkn own) date) unknown) (unknown) (no (unknown) (unknown) Blood Pressure (units (unknown) date) Location Lt unknown) brachial (unknown) (no (unknown) (unknown) Brother Age: 86 (units (unknown) date) Heart disease unknown) (unknown) (no (unknown) (unknown) Cardiovascular: (units (unknown) date) Negative.? unknown) (unknown) (no (unknown) (unknown) Cataracts, (units (unk nown) date) bilateral unknown) (Unknown) (unknown) (no (unknown) (unknown) Chief Complaint: (units (unknown) date) URI unknown) (unknown) (no (unknown) (unknown) Constitutional: (units (unknown) date) Negative.? unknown) (unknown) (no (unknown) (unknown) : 1935 (units (unknown) date) Acct:[id number] unknown) (unknown) (no (unknown) (unknown) Dept at (units (unkno wn) date) . unknown) (unknown) (no (unknown) (unknown) Documented By: (units (unknown) date) Ivette Drummond unknown) 06/12/22 1301 (unknown) (no (unknown) (unknown) Draft (units (unkno wn) date) unknown) (unknown) (no (unknown) (unknown) Endocrine: (units (unk nown) date) Negative.? 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 unknown) (unknown) (no (unknown) (unknown) [facility] (units ([facility] date[facility] unknown) (unknown) (no (unknown) (unknown) GERD (units (unkno wn) date) (gastroesophageal unknown) reflux disease) (Unknown) (unknown) (no (unknown) (unknown) Gastrointestinal: (units (unknown) date) Negative.? unknown) (unknown) (no (unknown) (unknown) Genitourinary: (units (unknown) date) Negative.? unknown) (unknown) (no (unknown) (unknown) Health Management (units (unknown) date) reviewed with unknown) patient: Yes (unknown) (no (unknown) (unknown) Health Management (units (unknown) date) unknown) (unknown) (no (unknown) (unknown) Hx of cataract (units (unknown) date) surgery (-2014) unknown) (unknown) (no (unknown) (unknown) Hyperlipemia (units (u nknown) date) (Unknown) unknown) (unknown) (no (unknown) (unknown) Hypertension (units (u nknown) date) (Unknown) unknown) (unknown) (no (unknown) (unknown) I reviewed the (units (unknown) date) patient's Past unknown) Medical History, Problem List, Medications and (unknown) (no (unknown) (unknown) Intake Note: (units (u nknown) date) unknown) (unknown) (no (unknown) (unknown) Intake performed (units (unknown) date) by: Marilyn Cerna unknown) (unknown) (no (unknown) (unknown) Intake (units (unkno wn) date) unknown) (unknown) (no (unknown) (unknown) Intake- Clincial [...] known) date) unknown) (unknown) (no (unknown) (unknown) Medications: (units (u nknown) date) Reconciled unknown) (unknown) (no (unknown) (unknown) Mitral (units (unkno wn) date) regurgitation unknown) (Unknown) (unknown) (no (unknown) (unknown) Mother (units (unknown) date) No problems noted. unknown) (unknown) (no (unknown) (unknown) Neurological: (units ( unknown) date) Negative.? unknown) (unknown) (no (unknown) (unknown) No Known Drug (units ( unknown) date) Allergies Allergy unknown) (Verified 06/12/22 13:02) (unknown) (no (unknown) (unknown) Note (units (unkno wn) date) unknown) (unknown) (no (unknown) (unknown) Note: (units (unkno wn) date) unknown) (unknown) (no (unknown) (unknown) Notes (units (unkno wn) date) unknown) (unknown) (no (unknown) (unknown) Objective: (units (unk nown) date) unknown) (unknown) (no (unknown) (unknown) Orders (units (unkno wn) date) unknown) (unknown) (no (unknown) (unknown) Orders: (units (unkno wn) date) unknown) (unknown) (no [...] date) #1 ea 02/08/22 [Rx unknown) Confirmed 06/12/22] (unknown) (no (unknown) (unknown) Patient: (units (unkno wn) date) Dana Pillai M unknown) MR#: [id number] (unknown) (no (unknown) (unknown) Position Sitting (units (unknown) date) unknown) (unknown) (no (unknown) (unknown) Pulse 79 (units (unkno wn) date) unknown) (unknown) (no (unknown) (unknown) Pulse Oximetry (units (unknown) date) (%) 96 unknown) (unknown) (no (unknown) (unknown) Pulse Source (units (u nknown) date) Monitor unknown) (unknown) (no (unknown) (unknown) Reason For Visit (units (unknown) date) unknown) (unknown) (no (unknown) (unknown) Respiratory: (units (u nknown) date) Negative.? unknown) (unknown) (no (unknown) (unknown) Review of (units (unkn own) date) Systems: unknown) (unknown) (no (unknown) (unknown) Signed By: (units (unk nown) date) unknown) (unknown) (no (unknown) (unknown) Smoking Status: (units (unknown) date) Never smoker unknown) (unknown) (no (unknown) (unknown) Social History (units (unknown) date) (including tobacco unknown) use status). (unknown) (no (unknown) (unknown) Status post right (units (unknown) date) breast lumpectomy unknown) (-1966) (unknown) (no (unknown) (unknown) Strep Grp A by (units (unknown) date) PCR Rapid Today unknown) J02.9 - Acute pharyngitis, unspecified (unknown) (no (unknown) (unknown) Subjective: (units (un known) date) unknown) (unknown) (no (unknown) (unknown) Superficial (units (un known) date) laceration unknown) (unknown) (no (unknown) (unknown) Surgical History (units (unknown) date) (Reviewed 03/15/22 unknown) @ 11:18 by Natan Waldron DO) (unknown) (no (unknown) (unknown) Temp 98.4 F (units (un known) date) unknown) (unknown) (no (unknown) (unknown) Temp Source (units (un known) date) Temporal Artery unknown) Scan (unknown) (no (unknown) (unknown) This note may (units ( unknown) date) have been all or unknown) partially generated using voice recognition (unknown) (no (unknown) (unknown) Throat Culture (units (unknown) date) Today J02.9 - unknown) Acute pharyngitis, unspecified (unknown) (no (unknown) (unknown) Tobacco + (units (unkn own) date) Substance Use unknown) (unknown) (no (unknown) (unknown) Tobacco Status (units (unknown) date) unknown) (unknown) (no (unknown) (unknown) Urinary (units (unkno wn) date) incontinence unknown) (Unknown) (unknown) (no (unknown) (unknown) Visit Reasons: (units (unknown) date) [facility]- URI unknown) (unknown) (no (unknown) (unknown) Vital Signs: (units (u nknown) date) Reviewed unknown) (unknown) (no (unknown) (unknown) Vitals (units (unkno wn) date) unknown) (unknown) (no (unknown) (unknown) Voice recognition (units (unknown) date) software was used unknown) in the creation of this note. There may be (unknown) (no (unknown) (unknown) Weight 135 lb (units ( unknown) date) unknown) (unknown) (no (unknown) (unknown) Well adult exam (units (unknown) date) unknown) (unknown) (no (unknown) (unknown) [GARLIC] ##0 (units (u nknown) date) 12/26/16 [History unknown) Confirmed 06/12/22] (unknown) (no (unknown) (unknown) [Rx Confirmed (units ( unknown) date) 06/12/22] unknown) (unknown) (no (unknown) (unknown) [] (units (unkno wn) date) unknown) (unknown) (no (unknown) (unknown) alcohol intake: (units (unknown) date) current unknown) (unknown) (no (unknown) (unknown) amlodipine 5 mg (units (unknown) date) tablet 5 mg PO unknown) DAILY 02/17/18 [History Confirmed 06/12/22] (unknown) (no (unknown) (unknown) apixaban 5 mg (units ( unknown) date) tablet (Eliquis) 5 unknown) mg PO BID #180 tabs 10/12/20 [Rx Confirmed (unknown) (no (unknown) (unknown) but it was not (units (unknown) date) effective. unknown) (unknown) (no (unknown) (unknown) cholecalciferol (units (unknown) date) (vitamin D3) 25 unknown) mcg (1,000 unit) capsule 1,000 unit PO DAILY (unknown) (no (unknown) (unknown) dapsone 25 mg (units ( unknown) date) tablet 25 mg PO unknown) .COMPLEX 08/20/18 [History Confirmed 06/12/22] (unknown) (no (unknown) (unknown) diclofenac sodium (units (unknown) date) 1 % topical gel unknown) (Voltaren) 2 g topical ONCE arthritis pain (unknown) (no (unknown) (unknown) have occurred. If (units (unknown) date) there are any unknown) questions, please contact the Medical Records (unknown) (no (unknown) (unknown) include runny (units (u nknown) date) nose, sore throat, unknown) cough, and congestion. the patient tried nyquil (unknown) (no (unknown) (unknown) losartan 100 mg (units (unknown) date) tablet 100 mg PO unknown) DAILY #90 tabs 08/20/18 [Rx Confirmed 06/12/22] (unknown) (no (unknown) (unknown) may occur. (units [...] where these substitutions (unknown) (no (unknown) (unknown) runny nose, (units (un known) date) watery eyes. unknown) (unknown) (no (unknown) (unknown) simvastatin 20 mg (units (unknown) date) tablet 20 mg PO HS unknown) #90 tabs 11/16/21 [Rx Confirmed 06/12/22] (unknown) (no (unknown) (unknown) software. (units (unkn own) date) Although every unknown) effort is made to edit content, director of entertainment errors (unknown) (no (unknown) (unknown) substance use (units ( unknown) date) type: does not use unknown) (unknown) (no (unknown) (unknown) tolterodine 2 mg (units (unknown) date) capsule,extended unknown) release 24 hr 2 mg PO DAILY #90 caps 09/11/21 (unknown) (no (unknown) (unknown) typographical (units ( unknown) date) errors as a unknown) result. Social History date description facility 2022-06-12 00:00 Never smoked tobacco ([facility] Vital Signs date measurement value units 2022-06-12 00:00 BP_diastolic 72 mmHg 2022-06-12 00:00 BP_systolic 120 mmHg 2022-06-12 00:00 heart_rate 79 /min 2022-06-12 00:00 o2_saturation 96 % 2022-06-12 00:00 temperature_metric 36.89 C 2022-06-12 00:00 temperature_standard 98.4 F 2022-06-12 00:00 weight_metric 61.23 kg 2022-06-12 00:00 weight_standard 134.99 lb
[2022-08-01] MEDS ORDERED: TETANUS/DIPHTHERIA/PERTUSSIS 0.5 ML SYRINGE IM ONE (14:31)
--- NOTE | 2022-08-01 14:50 | ED Physician Documentation ---
PD HPI UPPER EXT INJURY - Stated complaint Stated Complaint: RT WRIST LAC - Chief complaint Chief Complaint: Laceration - History obtained from History obtained from: Patient (She broke a jar and cut herself with broken glass to the dominant, right wrist just prior to arrival. No other injuries.) Review of Systems Constitutional: reports: Reviewed and negative PD PAST MEDICAL HISTORY - Present Medications Home Medications: Ambulatory Orders Medication Instructions Recorded Confirmed Amoxicillin 500 mg PO TID #20 cap 04/12/22 HYDROcod/ACETAM 5/325 [[place] 5/325] 1 - 2 tab PO Q6H PRN #15 tablet 04/12/22 - Allergies Allergies/Adverse Reactions: Allergies Allergy/AdvReac Type Severity Reaction Status Date / Time prednisone AdvReac Unknown Verified 08/01/22 13:58 PD ED PE NORMAL - Vitals Vital signs reviewed: Yes - General General: Alert and oriented X 3, No acute distress - Extremities Extremities: Other (2 cm laceration on the palmar side of the ulnar right wrist, into subcutaneous fat, no active bleeding, no distal neurovascular compromise.) - Neuro Neuro: Alert and oriented X 3, Normal speech Results - Vitals Vitals: Vital Signs - 24 hr 08/01/22 13:57 Temperature 36.5 C Heart Rate 70 Respiratory 14 Rate Blood Pressure 173/111 H O2 Saturation 97 Oxygen O2 Source Room air Procedures - Laceration (location) Right wrist Length in cm: 2 Wound type: Linear, Into subcut fat Neurovascular status: Sensory intact, Motor intact, Vascular intact Tendon involvement: Tendon intact Anesthesia: Lidocaine 1% with epi Wound preparation: Irrigated copiously NS Skin layer closure: Nylon, Interrupted, Size #-0 - enter number (4-0), Sutures - enter # (5) Other: Patient tolerated well, No complications, Neurovascular intact, Dressing applied, Tetanus booster given Departure - Departure Disposition: 01 Home, Self Care Clinical Impression: Laceration Condition: Good Record reviewed to determine appropriate education?: Yes Instructions: ED Laceration All Comments: Come back for any signs of infection which would include: Redness, swelling, drainage, increased pain, or fevers. You can wash it soap and water. Keep it covered and moist with bacitracin ointment which is available over the counter; avoid neosporin. Follow-up with your physician in About 14 days for suture removal. Note for your records that you received a Tdap shot today.
== END 2022-08-01 14:55 | disposition home or self-care (01) ==
LOC: ED 13:45
DX: S61.511A Laceration without foreign body of right wrist, initial encounter (principal); W25.XXXA Contact with sharp glass, initial encounter
CPT/HCPCS: 12001; 90471; 99283